=== PATIENT | male | born 1950 | race Caucasian/White ===

== ENCOUNTER 2022-03-09 13:22 | Day surgery (SDC) | payer MEDICARE, OTHER, SELFPAY ==
[2022-03-09] VITALS (28 sets, daily range): BP systolic 108–227; BP diastolic 50–98; PULSE 62–89; RESP 12–98; TEMP 35.8–37.2; O2SAT 86–100; BMI 27.7
--- NOTE | 2022-03-09 15:47 | DI.RAD.S_ITS ---
PROCEDURE: XR HAND RT 2V INDICATIONS: tenosynovitis? TECHNIQUE: 2 views of the hand(s) acquired. COMPARISON: None. FINDINGS: Bones: No fractures or dislocations. Carpal bones are normally aligned. No suspicious bony lesions. Soft tissues: No suspicious soft tissue calcifications. Dorsal soft tissue swelling over metacarpal heads are seen. IMPRESSION: No gross acute right hand fracture or dislocation. Dorsal right hand soft tissue swelling. No bony erosive changes. Dictated by: Mario Peacock M.D. on 03/09/2022 at 16:25 Approved by: Mario Peacock M.D. on 03/09/2022 at 16:25
--- NOTE | 2022-03-09 15:52 | DI.RAD.S_ITS ---
PROCEDURE: XR FOREARM RT 2V INDICATIONS: infection TECHNIQUE: 2 views of the forearm were acquired. COMPARISON: None. FINDINGS: Bones: No fractures or dislocations. No suspicious bony lesions. Soft tissues: Surgical clips are seen in antecubital fossa. No suspicious soft tissue calcifications or masses. IMPRESSION: No forearm fracture or dislocation. No radiographic evidence of osteomyelitis. Dictated by: Maroi Peacock M.D. on 03/09/2022 at 16:25 Approved by: Mario Peacock M.D. on 03/09/2022 at 16:26
--- NOTE | 2022-03-09 16:26 | ED_ITS ---
HPI - Skin/Abscess/Foreign Bdy <Jesenia Quach, [facility] - Last Filed: 03/15/22 14:56> General Chief complaint: Skin/Abscess/Foreign Body Stated complaint: Infection on right hand Time Seen by Provider: 03/09/22 15:45 Source: patient Mode of arrival: Wheelchair History of Present Illness HPI narrative: This is a 72-year-old male dialysis patient with bilateral arm fistulas, states the left arm fistula has not been used in one year, who presents to the emergency department after going to the walk-in clinic this morning for right hand infection after he hit it on something one week ago. He denies fevers but endorses feeling hot and cold and feeling poorly. He is is diabetic, states that he had a pus filled blister on the distal aspect of his 5th digit on his right hand, he endorses being right-handed, states that the blister popped, and the top layer of skin has peeled back, and he has redness, swelling and limited range of motion of his pinky with streaking up his forearm. Patient was seen by Dr. Pierre in the walk-in clinic and was sent over to [facility] for concern of tenosynovitis and IV antibiotics. Patient is a dialysis patient he denies being on any anticoagulants. He denies any chest pain, chest pressure, shortness of breath, or dizziness. He has redness and swelling to the whole 5th digit, with streaking up his arm. Related Data Home Medications Medication Instructions Recorded Confirmed dorzolamide 2 % eye drops 1 drp EYE-BOTH DAILY 03/09/22 03/09/22 ergocalciferol (vitamin D2) 1,250 1 cap PO WEEKLY 03/09/22 03/09/22 mcg (50,000 unit) capsule (Vitamin D2) finasteride 5 mg tablet 1 tab PO DAILY 03/09/22 03/09/22 furosemide 80 mg tablet 2 tab PO DAILY 03/09/22 03/09/22 losartan 100 mg tablet 1 tab PO DAILY 03/09/22 03/09/22 minoxidil 2.5 mg tablet 2 tab PO SEEINSTR 03/09/22 03/09/22 pantoprazole 40 mg tablet,delayed 1 tab PO DAILY 03/09/22 03/09/22 release tamsulosin 0.4 mg capsule 1 cap PO DAILY 03/09/22 03/09/22 timolol maleate 0.5 % eye drops 1 drp EYE-BOTH DAILY 03/09/22 03/09/22 Allergies Allergy/AdvReac Type Severity Reaction Status Date / Time No Known Drug Allergies Allergy Verified 03/09/22 20:39 Review of Systems <GUERDA Ellis - Last Filed: 03/15/22 14:56> Review of Systems Narrative: General: denies fever, chills, endorses fatigue and right hand pain Head/Neck: denies headache, neck pain Eyes: denies visual changes, eye pain Cardio: denies chest pain, palpitations Respiratory: denies shortness of breath, cough GI: denies abdominal pain, nausea, vomiting, or diarrhea : denies dysuria, hematuria or flank pain MSK: denies new joint pain, muscle weakness or swelling Skin: denies rash, itching, endorses wound to the distal aspect of his right 5th digit, redness and swelling over the whole finger, into his hand, and red streaking up his forearm on the ulnar side. 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 General: Awake, alert, afebrile, nontoxic, no cardiorespiratory distress, overweight, when he lays down, his oxygen drops down to 88%, appears fatigued and short of breath with exertion Head/Neck: Atraumatic, neck supple Eyes: EOMI, conjunctiva normal with conjunctival discharge present bilaterally Nose: nares patent, no rhinorrhea Mouth/Throat: moist mucus membranes Cardio: Regular rate and rhythm, no significant dependent edema, warm extremities Respiratory: respirations unlabored without wheezing, stridor, or rales. No retractions, no hypoxia unless he lays down with his mask on, then sats are in upper 80s. GI: Abdomen soft, nontender to palpation x4 quadrants, no guarding or rebound tenderness MSK: Moves all extremities, neurovascularly intact, range of motion without deficit Skin: Normal capillary refill, significant swelling and edema of his right hand 5th digit with an associated wound on the distal 3rd of his finger which is open , draining clear fluid, appears to be a blister that avulsed. Patient states that used to be an abscess and was filled with pus. Patient is not able to extend his finger, mild flexion is possible but no extension, associated lymphangitis up his forearm from this 5th digit Neuro: Normal speech and cognition, normal gait Initial Vital Signs Initial Vital Signs: Vital Signs Temperature 98.4 F 03/09/22 13:22 Pulse Rate 71 03/09/22 13:22 Respiratory Rate 16 03/09/22 13:22 Blood Pressure 161/69 H 03/09/22 13:22 Pulse Oximetry 93 03/09/22 13:22 Oxygen Delivery Method 03/09/22 13:22 <Jodie Zabala MD - Last Filed: 03/19/22 18:10> Initial Vital Signs Initial Vital Signs: Vital Signs Temperature 98.4 F 03/09/22 13:22 Pulse Rate 71 03/09/22 13:22 Respiratory Rate 16 03/09/22 13:22 Blood Pressure 161/69 H 03/09/22 13:22 Pulse Oximetry 93 03/09/22 13:22 Oxygen Delivery Method 03/09/22 13:22 <Bel Pineda DO - Last Filed: 03/14/22 17:42> Initial Vital Signs Initial Vital Signs: Vital Signs Temperature 98.4 F 03/09/22 13:22 Pulse Rate 71 03/09/22 13:22 Respiratory Rate 16 03/09/22 13:22 Blood Pressure 161/69 H 03/09/22 13:22 Pulse Oximetry 93 03/09/22 13:22 Oxygen Delivery Method 03/09/22 13:22 <Heidi Jennings DO - Last Filed: 03/14/22 13:18> Initial Vital Signs Initial Vital Signs: Vital Signs Temperature 98.4 F 03/09/22 13:22 Pulse Rate 71 03/09/22 13:22 Respiratory Rate 16 03/09/22 13:22 Blood Pressure 161/69 H 03/09/22 13:22 Pulse Oximetry 93 03/09/22 13:22 Oxygen Delivery Method 03/09/22 13:22 <Aristeo Scales DO - Last Filed: 03/13/22 06:29> Initial Vital Signs Initial Vital Signs: Vital Signs Temperature 98.4 F 03/09/22 13:22 Pulse Rate 71 03/09/22 13:22 Respiratory Rate 16 03/09/22 13:22 Blood Pressure 161/69 H 03/09/22 13:22 Pulse Oximetry 93 03/09/22 13:22 Oxygen Delivery Method 03/09/22 13:22 Course <GUERDA Ellis - Last Filed: 03/15/22 14:56> Orders Ordered: Discontinued Medications Acetaminophen (Acetaminophen 325 Mg Tablet) 650 mg PO NOW ONE Stop: 03/09/22 18:32 Last Admin: 03/09/22 19:09 Dose: 650 mg Documented By: GUDELIA Hydrocodone Bitart/Acetaminophen (Hydrocodone/Acet 5/325 Tablet) 1 tab PO NOW ONE Stop: 03/09/22 18:32 Last Admin: 03/09/22 19:09 Dose: 1 tab Documented By: GUDELIA Bupivacaine HCl (Bupivacaine 0.5% (Pf) Vial) 30 ml INJ NOW ONE Stop: 03/09/22 21:43 Last Admin: 03/09/22 21:42 Dose: 7 ml Documented By: MITUL Bupivacaine HCl (Bupivacaine 0.5% (Pf) Vial) 30 ml INJ INTRA-OP ONE Stop: 03/12/22 12:37 Last Admin: 03/12/22 12:37 Dose: 7 ml Documented By: MITUL Sodium Chloride 1,000 ml/ (Gentamicin Sulfate 80 mg) 0 ml IRR NOW ONE Stop: 03/09/22 21:43 Last Admin: 03/09/22 21:43 Dose: 1,002 ml Documented By: MITUL Sodium Chloride 1,000 ml/ (Gentamicin Sulfate 80 mg) 0 ml IRR NOW ONE Stop: 03/12/22 12:38 Last Admin: 03/12/22 12:38 Dose: 1,002 ml Documented By: MITUL Diphtheria/Tetanus/Acell Pertussis (Tet,Diph,Pertuss(Acell),Vac/Pf 0.5 Ml Syringe) 0.5 ml IM .ONCE ONE Stop: 03/09/22 16:30 Last Admin: 03/09/22 16:38 Dose: 0.5 ml Documented By: LYN Dorzolamide HCl (Dorzolamide 2% Ophth 10 Ml) 1 drops EYE-BOTH DAILY [facility] Last Admin: 03/14/22 08:45 Dose: 1 drops Documented By: Admin: 03/13/22 09:20 Dose: 1 drops Documented By: Admin: 03/12/22 09:33 Dose: 1 drops Documented By: Admin: 03/11/22 19:00 Dose: 1 drops Documented By: ANU Doxycycline Hyclate (Doxycycline Hyclate 100 Mg Tablet) 100 mg PO NOW ONE Stop: 03/09/22 16:30 Last Admin: 03/09/22 16:38 Dose: 100 mg Documented By: LYN Ergocalciferol (Ergocalciferol (Vitamin D2) 50,000 Unit Capsule) 50,000 unit PO Fr@0900 [facility] Fentanyl (Fentanyl 100 Mcg/2 Ml Inj) 0 mcg IV Q5M PRN PRN Reason: Pain, Moderate (4-6) Finasteride (Finasteride 5 Mg Tablet) 5 mg PO NOW ONE Stop: 03/11/22 10:56 Last Admin: 03/11/22 11:42 Dose: 5 mg Documented By: ANU Finasteride (Finasteride 5 Mg Tablet) 5 mg PO DAILY [facility] Last Admin: 03/14/22 08:46 Dose: 5 mg Documented By: Admin: 03/13/22 09:22 Dose: 5 mg Documented By: Admin: 03/12/22 09:32 Dose: 5 mg Documented By: Admin: 03/11/22 14:22 Dose: Not Given Documented By: ANU Furosemide (Furosemide 40 Mg/4 Ml Vial) 40 mg IV NOW ONE Stop: 03/10/22 09:33 Last Admin: 03/10/22 09:47 Dose: 40 mg Documented By: BENNY Furosemide (Furosemide 100 Mg/10 Ml Vial) 60 mg IV NOW ONE Stop: 03/11/22 09:56 Last Admin: 03/11/22 09:59 Dose: 60 mg Documented By: DEYANIRA Furosemide (Furosemide 40 Mg Tablet) 160 mg PO DAILY [facility] Last Admin: 03/11/22 14:44 Dose: Not Given Documented By: CHELLE(2) Furosemide (Furosemide 40 Mg Tablet) 160 mg PO 1900 [facility] Last Admin: 03/13/22 22:00 Dose: 160 mg Documented By: Admin: 03/12/22 20:14 Dose: 160 mg Documented By: Admin: 03/11/22 19:04 Dose: 160 mg Documented By: ANU Hydralazine HCl (Hydralazine 20 Mg/Ml Vial) 10 mg IV NOW ONE Stop: 03/09/22 18:27 Last Admin: 03/09/22 19:07 Dose: 10 mg Documented By: GUDELIA Ceftriaxone Sodium 1,000 mg/ (Sodium Chloride) 100 mls @ 200 mls/hr IV NOW ONE Stop: 03/09/22 17:00 Last Infusion: 03/09/22 18:26 Dose: 0 mls/hr Documented By: Admin: 03/09/22 17:38 Dose: 200 mls/hr Documented By: GUDELIA Metronidazole (Flagyl) 500 mg in 100 mls @ 100 mls/hr IV NOW ONE Stop: 03/09/22 17:58 Last Infusion: 03/09/22 19:35 Dose: 0 mls/hr Documented By: Admin: 03/09/22 18:24 Dose: 100 mls/hr Documented By: GUDELIA Vancomycin HCl/Dextrose (Vancomycin) 2,000 mg in 400 mls @ 200 mls/hr IV NOW ONE Stop: 03/09/22 23:14 Last Infusion: 03/10/22 00:08 Dose: 0 mls/hr Documented By: Admin: 03/09/22 21:45 Dose: 200 mls/hr Documented By: CHRYSTAL Lactated Ringer's (Lactated Ringers) 1,000 mls @ 42 mls/hr IV NOW ONE Stop: 03/10/22 20:18 Last Infusion: 03/09/22 23:50 Dose: 0 mls/hr Documented By: Admin: 03/09/22 23:49 Dose: 42 mls/hr Documented By: MAGUE Ceftriaxone Sodium 2,000 mg/ (Sodium Chloride) 100 mls @ 200 mls/hr IV DAILY [facility] Last Infusion: 03/14/22 09:53 Dose: 0 mls/hr Documented By: Infusion: 03/14/22 09:21 Dose: 200 mls/hr Documented By: Infusion: 03/14/22 09:18 Dose: 0 mls/hr Documented By: Admin: 03/14/22 09:00 Dose: 200 mls/hr Documented By: Infusion: 03/13/22 09:58 Dose: 0 mls/hr Documented By: Admin: 03/13/22 09:21 Dose: 200 mls/hr Documented By: Infusion: 03/12/22 11:11 Dose: 0 mls/hr Documented By: Admin: 03/12/22 10:38 Dose: 200 mls/hr Documented By: Infusion: 03/11/22 11:18 Dose: 0 mls/hr Documented By: Admin: 03/11/22 09:56 Dose: 200 mls/hr Documented By: Infusion: 03/10/22 12:19 Dose: 0 mls/hr Documented By: Admin: 03/10/22 10:55 Dose: 200 mls/hr Documented By: BENNY Metronidazole (Flagyl) 500 mg in 100 mls @ 100 mls/hr IV Q8H [facility] Last Infusion: 03/10/22 10:38 Dose: 0 mls/hr Documented By: Admin: 03/10/22 09:39 Dose: 100 mls/hr Documented By: BENNY Metronidazole (Flagyl) 500 mg in 100 mls @ 100 mls/hr IV Q8H [facility] Last Infusion: 03/11/22 03:30 Dose: 0 mls/hr Documented By: Admin: 03/11/22 02:28 Dose: 100 mls/hr Documented By: Infusion: 03/10/22 20:38 Dose: 0 mls/hr Documented By: Admin: 03/10/22 19:34 Dose: 100 mls/hr Documented By: ELAN Vancomycin HCl/Dextrose (Vancomycin) 2,000 mg in 400 mls @ 200 mls/hr IV NOW ONE Stop: 03/12/22 08:59 Last Infusion: 03/12/22 10:38 Dose: 0 mls/hr Documented By: Admin: 03/12/22 08:13 Dose: 200 mls/hr Documented By: CHELLE Sodium Chloride (Normal Saline 0.9%) 500 mls @ 21 mls/hr IV CONT [facility] Last Admin: 03/13/22 10:00 Dose: Not Given Documented By: CHELLE Sodium Chloride (Normal Saline 0.9%) 1,000 mls @ 21 mls/hr IV CONT [facility] Last Infusion: 03/12/22 13:26 Dose: 0 mls/hr Documented By: Admin: 03/12/22 11:55 Dose: 21 mls/hr Documented By: YAZAN Losartan Potassium (Losartan 50 Mg Tablet) 100 mg PO DAILY [facility] Last Admin: 03/14/22 08:46 Dose: 100 mg Documented By: Admin: 03/13/22 09:21 Dose: 100 mg Documented By: Admin: 03/12/22 09:31 Dose: 100 mg Documented By: Admin: 03/11/22 10:37 Dose: 100 mg Documented By: DEYANIRA Minoxidil (Minoxidil 2.5 Mg Tablet) 5 mg PO NOW ONE Stop: 03/11/22 10:57 Last Admin: 03/11/22 11:42 Dose: 5 mg Documented By: ANU Minoxidil (Minoxidil 2.5 Mg Tablet) 5 mg PO SEEINSTR [facility] Last Admin: 03/12/22 09:33 Dose: 5 mg Documented By: ERNST Oxycodone HCl (Oxycodone Ir 5 Mg Tablet) 5 mg PO NOW ONE Stop: 03/11/22 13:38 Last Admin: 03/11/22 14:23 Dose: Not Given Documented By: ANU Oxycodone/Acetaminophen (Oxycodone/Acetaminophen 5/325 Tablet) 1 tab PO PACUNOW PRN PRN Reason: Mild or Moderate Pain Pantoprazole Sodium (Pantoprazole Dr 40 Mg Tablet) 40 mg PO DAILY [facility] Last Admin: 03/14/22 08:46 Dose: 40 mg Documented By: Admin: 03/13/22 09:21 Dose: 40 mg Documented By: Admin: 03/12/22 09:31 Dose: 40 mg Documented By: Admin: 03/11/22 14:22 Dose: Not Given Documented By: ANU Tamsulosin HCl (Tamsulosin 0.4 Mg Capsule) 0.4 mg PO DAILY [facility] Last Admin: 03/14/22 08:46 Dose: 0.4 mg Documented By: Admin: 03/13/22 09:21 Dose: 0.4 mg Documented By: Admin: 03/12/22 09:31 Dose: 0.4 mg Documented By: Admin: 03/11/22 09:59 Dose: 0.4 mg Documented By: DEYANIRA Tamsulosin HCl (Tamsulosin 0.4 Mg Capsule) 0.4 mg PO DAILY [facility] Last Admin: 03/11/22 14:44 Dose: Not Given Documented By: CHELLE(2) Timolol Maleate (Timolol 0.5% Ophth) 1 drops EYE-BOTH DAILY [facility] Last Admin: 03/11/22 14:44 Dose: Not Given Documented By: CHELLE(2) Timolol Maleate (Timolol 0.5% Ophth) 1 drops EYE-BOTH DAILY [facility] Last Admin: 03/14/22 08:45 Dose: 1 drop Documented By: Admin: 03/13/22 09:20 Dose: 1 drop Documented By: Admin: 03/12/22 09:30 Dose: 1 drop Documented By: Admin: 03/11/22 19:04 Dose: 1 drop Documented By: ANU Vancomycin HCl (Vancomycin Per Pharmacy) 1 request MIS NOW ONE Stop: 03/09/22 19:13 Last Admin: 03/09/22 23:50 Dose: Not Given Documented By: AMANDA Vancomycin HCl (Vancomycin Per Pharmacy) 1 request MISC NOW ONE Stop: 03/09/22 21:16 Last Admin: 03/09/22 23:51 Dose: Not Given Documented By: AMANDA Vancomycin HCl (Vancomycin Per Pharmacy) 1 request MISC NOW NR Stop: 03/10/22 21:44 Vancomycin HCl (Vancomycin Per Pharmacy) 1 request MISC NOW NR Stop: 03/10/22 22:14 Vital Signs Vital signs: Vital Signs - 8 hr 03/14/22 10:30 03/14/22 09:56 03/14/22 09:57 Temperature 98.3 F Pulse Rate 72 Respiratory Rate 20 Blood Pressure 145/63 H Blood Pressure [Left Wrist] 145/63 H Pulse Oximetry 97 96 Oxygen Delivery Method Nasal Cannula Nasal Cannula Oxygen Flow Rate 2 2 03/14/22 09:57 03/14/22 13:08 03/14/22 15:48 Temperature Pulse Rate 72 83 71 Respiratory Rate 18 20 Blood Pressure 169/76 H 165/72 H Blood Pressure [Left Wrist] Pulse Oximetry 96 93 95 Oxygen Delivery Method Nasal Cannula Nasal Cannula Nasal Cannula Oxygen Flow Rate 2 2 2 <Jodie Zabala MD - Last Filed: 03/19/22 18:10> Orders Ordered: Discontinued Medications Acetaminophen (Acetaminophen 325 Mg Tablet) 650 mg PO NOW ONE Stop: 03/09/22 18:32 Last Admin: 03/09/22 19:09 Dose: 650 mg Documented By: GUDELIA Hydrocodone Bitart/Acetaminophen (Hydrocodone/Acet 5/325 Tablet) 1 tab PO NOW ONE Stop: 03/09/22 18:32 Last Admin: 03/09/22 19:09 Dose: 1 tab Documented By: GUDELIA Bupivacaine HCl (Bupivacaine 0.5% (Pf) Vial) 30 ml INJ NOW ONE Stop: 03/09/22 21:43 Last Admin: 03/09/22 21:42 Dose: 7 ml Documented By: MITUL Bupivacaine HCl (Bupivacaine 0.5% (Pf) Vial) 30 ml INJ INTRA-OP ONE Stop: 03/12/22 12:37 Last Admin: 03/12/22 12:37 Dose: 7 ml Documented By: MITUL Sodium Chloride 1,000 ml/ (Gentamicin Sulfate 80 mg) 0 ml IRR NOW ONE Stop: 03/09/22 21:43 Last Admin: 03/09/22 21:43 Dose: 1,002 ml Documented By: MITUL Sodium Chloride 1,000 ml/ (Gentamicin Sulfate 80 mg) 0 ml IRR NOW ONE Stop: 03/12/22 12:38 Last Admin: 03/12/22 12:38 Dose: 1,002 ml Documented By: MITUL Diphtheria/Tetanus/Acell Pertussis (Tet,Diph,Pertuss(Acell),Vac/Pf 0.5 Ml Syringe) 0.5 ml IM .ONCE ONE Stop: 03/09/22 16:30 Last Admin: 03/09/22 16:38 Dose: 0.5 ml Documented By: LYN Dorzolamide HCl (Dorzolamide 2% Ophth 10 Ml) 1 drops EYE-BOTH DAILY [facility] Last Admin: 03/14/22 08:45 Dose: 1 drops Documented By: Admin: 03/13/22 09:20 Dose: 1 drops Documented By: Admin: 03/12/22 09:33 Dose: 1 drops Documented By: Admin: 03/11/22 19:00 Dose: 1 drops Documented By: ANU Doxycycline Hyclate (Doxycycline Hyclate 100 Mg Tablet) 100 mg PO NOW ONE Stop: 03/09/22 16:30 Last Admin: 03/09/22 16:38 Dose: 100 mg Documented By: LYN Ergocalciferol (Ergocalciferol (Vitamin D2) 50,000 Unit Capsule) 50,000 unit PO Fr@0900 [facility] Fentanyl (Fentanyl 100 Mcg/2 Ml Inj) 0 mcg IV Q5M PRN PRN Reason: Pain, Moderate (4-6) Finasteride (Finasteride 5 Mg Tablet) 5 mg PO NOW ONE Stop: 03/11/22 10:56 Last Admin: 03/11/22 11:42 Dose: 5 mg Documented By: ANU Finasteride (Finasteride 5 Mg Tablet) 5 mg PO DAILY [facility] Last Admin: 03/14/22 08:46 Dose: 5 mg Documented By: Admin: 03/13/22 09:22 Dose: 5 mg Documented By: Admin: 03/12/22 09:32 Dose: 5 mg Documented By: Admin: 03/11/22 14:22 Dose: Not Given Documented By: ANU Furosemide (Furosemide 40 Mg/4 Ml Vial) 40 mg IV NOW ONE Stop: 03/10/22 09:33 Last Admin: 03/10/22 09:47 Dose: 40 mg Documented By: BENNY Furosemide (Furosemide 100 Mg/10 Ml Vial) 60 mg IV NOW ONE Stop: 03/11/22 09:56 Last Admin: 03/11/22 09:59 Dose: 60 mg Documented By: DEYANIRA Furosemide (Furosemide 40 Mg Tablet) 160 mg PO DAILY [facility] Last Admin: 03/11/22 14:44 Dose: Not Given Documented By: CHELLE(2) Furosemide (Furosemide 40 Mg Tablet) 160 mg PO 1900 [facility] Last Admin: 03/13/22 22:00 Dose: 160 mg Documented By: Admin: 03/12/22 20:14 Dose: 160 mg Documented By: Admin: 03/11/22 19:04 Dose: 160 mg Documented By: ANU Hydralazine HCl (Hydralazine 20 Mg/Ml Vial) 10 mg IV NOW ONE Stop: 03/09/22 18:27 Last Admin: 03/09/22 19:07 Dose: 10 mg Documented By: GUDELIA Ceftriaxone Sodium 1,000 mg/ (Sodium Chloride) 100 mls @ 200 mls/hr IV NOW ONE Stop: 03/09/22 17:00 Last Infusion: 03/09/22 18:26 Dose: 0 mls/hr Documented By: Admin: 03/09/22 17:38 Dose: 200 mls/hr Documented By: GUDELIA Metronidazole (Flagyl) 500 mg in 100 mls @ 100 mls/hr IV NOW ONE Stop: 03/09/22 17:58 Last Infusion: 03/09/22 19:35 Dose: 0 mls/hr Documented By: Admin: 03/09/22 18:24 Dose: 100 mls/hr Documented By: GUDELIA Vancomycin HCl/Dextrose (Vancomycin) 2,000 mg in 400 mls @ 200 mls/hr IV NOW ONE Stop: 03/09/22 23:14 Last Infusion: 03/10/22 00:08 Dose: 0 mls/hr Documented By: Admin: 03/09/22 21:45 Dose: 200 mls/hr Documented By: CHRYSTAL Lactated Ringer's (Lactated Ringers) 1,000 mls @ 42 mls/hr IV NOW ONE Stop: 03/10/22 20:18 Last Infusion: 03/09/22 23:50 Dose: 0 mls/hr Documented By: Admin: 03/09/22 23:49 Dose: 42 mls/hr Documented By: MAGUE Ceftriaxone Sodium 2,000 mg/ (Sodium Chloride) 100 mls @ 200 mls/hr IV DAILY [facility] Last Infusion: 03/14/22 09:53 Dose: 0 mls/hr Documented By: Infusion: 03/14/22 09:21 Dose: 200 mls/hr Documented By: Infusion: 03/14/22 09:18 Dose: 0 mls/hr Documented By: AMEd Admin: 03/14/22 09:00 Dose: 200 mls/hr Documented By: AMEd Infusion: 03/13/22 09:58 Dose: 0 mls/hr Documented By: Admin: 03/13/22 09:21 Dose: 200 mls/hr Documented By: Infusion: 03/12/22 11:11 Dose: 0 mls/hr Documented By: Admin: 03/12/22 10:38 Dose: 200 mls/hr Documented By: Infusion: 03/11/22 11:18 Dose: 0 mls/hr Documented By: Admin: 03/11/22 09:56 Dose: 200 mls/hr Documented By: Infusion: 03/10/22 12:19 Dose: 0 mls/hr Documented By: Admin: 03/10/22 10:55 Dose: 200 mls/hr Documented By: BENNY Metronidazole (Flagyl) 500 mg in 100 mls @ 100 mls/hr IV Q8H [facility] Last Infusion: 03/10/22 10:38 Dose: 0 mls/hr Documented By: Admin: 03/10/22 09:39 Dose: 100 mls/hr Documented By: BENNY Metronidazole (Flagyl) 500 mg in 100 mls @ 100 mls/hr IV Q8H [facility] Last Infusion: 03/11/22 03:30 Dose: 0 mls/hr Documented By: Admin: 03/11/22 02:28 Dose: 100 mls/hr Documented By: Infusion: 03/10/22 20:38 Dose: 0 mls/hr Documented By: Admin: 03/10/22 19:34 Dose: 100 mls/hr Documented By: ELAN Vancomycin HCl/Dextrose (Vancomycin) 2,000 mg in 400 mls @ 200 mls/hr IV NOW ONE Stop: 03/12/22 08:59 Last Infusion: 03/12/22 10:38 Dose: 0 mls/hr Documented By: Admin: 03/12/22 08:13 Dose: 200 mls/hr Documented By: CHELLE Sodium Chloride (Normal Saline 0.9%) 500 mls @ 21 mls/hr IV CONT [facility] Last Admin: 03/13/22 10:00 Dose: Not Given Documented By: CHELLE Sodium Chloride (Normal Saline 0.9%) 1,000 mls @ 21 mls/hr IV CONT [facility] Last Infusion: 03/12/22 13:26 Dose: 0 mls/hr Documented By: Admin: 03/12/22 11:55 Dose: 21 mls/hr Documented By: YAZAN Losartan Potassium (Losartan 50 Mg Tablet) 100 mg PO DAILY [facility] Last Admin: 03/14/22 08:46 Dose: 100 mg Documented By: Admin: 03/13/22 09:21 Dose: 100 mg Documented By: Admin: 03/12/22 09:31 Dose: 100 mg Documented By: Admin: 03/11/22 10:37 Dose: 100 mg Documented By: DEYANIRA Minoxidil (Minoxidil 2.5 Mg Tablet) 5 mg PO NOW ONE Stop: 03/11/22 10:57 Last Admin: 03/11/22 11:42 Dose: 5 mg Documented By: ANU Minoxidil (Minoxidil 2.5 Mg Tablet) 5 mg PO SEEINSTR [facility] Last Admin: 03/12/22 09:33 Dose: 5 mg Documented By: ERNST Oxycodone HCl (Oxycodone Ir 5 Mg Tablet) 5 mg PO NOW ONE Stop: 03/11/22 13:38 Last Admin: 03/11/22 14:23 Dose: Not Given Documented By: ANU Oxycodone/Acetaminophen (Oxycodone/Acetaminophen 5/325 Tablet) 1 tab PO PACUNOW PRN PRN Reason: Mild or Moderate Pain Pantoprazole Sodium (Pantoprazole Dr 40 Mg Tablet) 40 mg PO DAILY [facility] Last Admin: 03/14/22 08:46 Dose: 40 mg Documented By: Admin: 03/13/22 09:21 Dose: 40 mg Documented By: Admin: 03/12/22 09:31 Dose: 40 mg Documented By: Admin: 03/11/22 14:22 Dose: Not Given Documented By: ANU Tamsulosin HCl (Tamsulosin 0.4 Mg Capsule) 0.4 mg PO DAILY [facility] Last Admin: 03/14/22 08:46 Dose: 0.4 mg Documented By: Admin: 03/13/22 09:21 Dose: 0.4 mg Documented By: Admin: 03/12/22 09:31 Dose: 0.4 mg Documented By: Admin: 03/11/22 09:59 Dose: 0.4 mg Documented By: DEYANIRA Tamsulosin HCl (Tamsulosin 0.4 Mg Capsule) 0.4 mg PO DAILY [facility] Last Admin: 03/11/22 14:44 Dose: Not Given Documented By: CHELLE(2) Timolol Maleate (Timolol 0.5% [facility]) 1 drops EYE-BOTH DAILY [facility] Last Admin: 03/11/22 14:44 Dose: Not Given Documented By: CHELLE(2) Timolol Maleate (Timolol 0.5% [facility]) 1 drops EYE-BOTH DAILY [facility] Last Admin: 03/14/22 08:45 Dose: 1 drop Documented By: Admin: 03/13/22 09:20 Dose: 1 drop Documented By: Admin: 03/12/22 09:30 Dose: 1 drop Documented By: Admin: 03/11/22 19:04 Dose: 1 drop Documented By: ANU Vancomycin HCl (Vancomycin Per Pharmacy) 1 request MISC NOW ONE Stop: 03/09/22 19:13 Last Admin: 03/09/22 23:50 Dose: Not Given Documented By: AMANDA Vancomycin HCl (Vancomycin Per Pharmacy) 1 request MISC NOW ONE Stop: 03/09/22 21:16 Last Admin: 03/09/22 23:51 Dose: Not Given Documented By: AMANDA Vancomycin HCl (Vancomycin Per Pharmacy) 1 request MISC NOW NR Stop: 03/10/22 21:44 Vancomycin HCl (Vancomycin Per Pharmacy) 1 request MISC NOW NR Stop: 03/10/22 22:14 Reevaluation(s) Reevaluation #1: Patient is return from operating room: Patient: Norris Baumann Jr MR#: [id number] : 1950 ? Date of service 03/09/22 Provider:?Kristina Harris MD Operative Date/Time/Diagnoses Date of procedure: 03/09/22 Time of procedure: 20:45 Pre-op diagnosis: Right hand infection Post-op diagnosis: same Procedure & Clinicians Procedure: Irrigation and excisional debridement of her right hand removing some skin and subcutaneous tissues with opening on the right small finger dorsum volar and right palm index and middle finger volar surface, irrigation and debridement 5th finger flexor tendon sheath Same procedure as scheduled: Yes Indications: This is a 72-year-old gentleman with a severe right hand infection is brought to the operating room for as severe right hand diabetic infection pretty dominantly being in the small finger Surgeon: Kristina Harris Anesthesia Type: General Operative Notes Findings: Purulent material on the dorsum of the hand, slight necrotic tissue, intact extensor tendon, open fracture into the distal phalanx with purulent material, purulent material in the 5th finger flexor tendon sheath, superficial infection at the base of the index and middle finger no deep pus.? Slightly in purplish discoloration of the 5th finger but some capillary refill. Closure Type: not applicable Specimen(s): other (Multiple cultures) Estimated Blood Loss (mL): 50 Patient is subtle then, pain is controlled, vancomycin is infusing. He has previously received ceftriaxone and Flagyl Will continue postop care and antibiotic treatment over the course of the evening. He will need transfer to facility for continued IV Care, Orthopedic consultation and inpatient dialysis Vital Signs Vital signs: Vital Signs - 8 hr 03/14/22 10:30 03/14/22 09:56 03/14/22 09:57 Temperature 98.3 F Pulse Rate 72 Respiratory Rate 20 Blood Pressure 145/63 H Blood Pressure [Left Wrist] 145/63 H Pulse Oximetry 97 96 Oxygen Delivery Method Nasal Cannula Nasal Cannula Oxygen Flow Rate 2 2 03/14/22 09:57 03/14/22 13:08 03/14/22 15:48 Temperature Pulse Rate 72 83 71 Respiratory Rate 18 20 Blood Pressure 169/76 H 165/72 H Blood Pressure [Left Wrist] Pulse Oximetry 96 93 95 Oxygen Delivery Method Nasal Cannula Nasal Cannula Nasal Cannula Oxygen Flow Rate 2 2 2 <Bel Pineda, DO - Last Filed: 03/14/22 17:42> Orders Ordered: Discontinued Medications Acetaminophen (Acetaminophen 325 Mg Tablet) 650 mg PO NOW ONE Stop: 03/09/22 18:32 Last Admin: 03/09/22 19:09 Dose: 650 mg Documented By: GUDELIA Hydrocodone Bitart/Acetaminophen (Hydrocodone/Acet 5/325 Tablet) 1 tab PO NOW ONE Stop: 03/09/22 18:32 Last Admin: 03/09/22 19:09 Dose: 1 tab Documented By: GUDELIA Bupivacaine HCl (Bupivacaine 0.5% (Pf) Vial) 30 ml INJ NOW ONE Stop: 03/09/22 21:43 Last Admin: 03/09/22 21:42 Dose: 7 ml Documented By: MITUL Bupivacaine HCl (Bupivacaine 0.5% (Pf) Vial) 30 ml INJ INTRA-OP ONE Stop: 03/12/22 12:37 Last Admin: 03/12/22 12:37 Dose: 7 ml Documented By: MITUL Sodium Chloride 1,000 ml/ (Gentamicin Sulfate 80 mg) 0 ml IRR NOW ONE Stop: 03/09/22 21:43 Last Admin: 03/09/22 21:43 Dose: 1,002 ml Documented By: MITUL Sodium Chloride 1,000 ml/ (Gentamicin Sulfate 80 mg) 0 ml IRR NOW ONE Stop: 03/12/22 12:38 Last Admin: 03/12/22 12:38 Dose: 1,002 ml Documented By: MITUL Diphtheria/Tetanus/Acell Pertussis (Tet,Diph,Pertuss(Acell),Vac/Pf 0.5 Ml Syringe) 0.5 ml IM .ONCE ONE Stop: 03/09/22 16:30 Last Admin: 03/09/22 16:38 Dose: 0.5 ml Documented By: LYN Dorzolamide HCl (Dorzolamide 2% Ophth 10 Ml) 1 drops EYE-BOTH DAILY [facility] Last Admin: 03/14/22 08:45 Dose: 1 drops Documented By: Admin: 03/13/22 09:20 Dose: 1 drops Documented By: Admin: 03/12/22 09:33 Dose: 1 drops Documented By: Admin: 03/11/22 19:00 Dose: 1 drops Documented By: ANU Doxycycline Hyclate (Doxycycline Hyclate 100 Mg Tablet) 100 mg PO NOW ONE Stop: 03/09/22 16:30 Last Admin: 03/09/22 16:38 Dose: 100 mg Documented By: LYN Ergocalciferol (Ergocalciferol (Vitamin D2) 50,000 Unit Capsule) 50,000 unit PO Fr@0900 [facility] Fentanyl (Fentanyl 100 Mcg/2 Ml Inj) 0 mcg IV Q5M PRN PRN Reason: Pain, Moderate (4-6) Finasteride (Finasteride 5 Mg Tablet) 5 mg PO NOW ONE Stop: 03/11/22 10:56 Last Admin: 03/11/22 11:42 Dose: 5 mg Documented By: ANU Finasteride (Finasteride 5 Mg Tablet) 5 mg PO DAILY [facility] Last Admin: 03/14/22 08:46 Dose: 5 mg Documented By: Admin: 03/13/22 09:22 Dose: 5 mg Documented By: Admin: 03/12/22 09:32 Dose: 5 mg Documented By: Admin: 03/11/22 14:22 Dose: Not Given Documented By: ANU Furosemide (Furosemide 40 Mg/4 Ml Vial) 40 mg IV NOW ONE Stop: 03/10/22 09:33 Last Admin: 03/10/22 09:47 Dose: 40 mg Documented By: BENNY Furosemide (Furosemide 100 Mg/10 Ml Vial) 60 mg IV NOW ONE Stop: 03/11/22 09:56 Last Admin: 03/11/22 09:59 Dose: 60 mg Documented By: DEYANIRA Furosemide (Furosemide 40 Mg Tablet) 160 mg PO DAILY [facility] Last Admin: 03/11/22 14:44 Dose: Not Given Documented By: CHELLE(2) Furosemide (Furosemide 40 Mg Tablet) 160 mg PO 1900 [facility] Last Admin: 03/13/22 22:00 Dose: 160 mg Documented By: Admin: 03/12/22 20:14 Dose: 160 mg Documented By: Admin: 03/11/22 19:04 Dose: 160 mg Documented By: ANU Hydralazine HCl (Hydralazine 20 Mg/Ml Vial) 10 mg IV NOW ONE Stop: 03/09/22 18:27 Last Admin: 03/09/22 19:07 Dose: 10 mg Documented By: GUDELIA Ceftriaxone Sodium 1,000 mg/ (Sodium Chloride) 100 mls @ 200 mls/hr IV NOW ONE Stop: 03/09/22 17:00 Last Infusion: 03/09/22 18:26 Dose: 0 mls/hr Documented By: Admin: 03/09/22 17:38 Dose: 200 mls/hr Documented By: GUDELIA Metronidazole (Flagyl) 500 mg in 100 mls @ 100 mls/hr IV NOW ONE Stop: 03/09/22 17:58 Last Infusion: 03/09/22 19:35 Dose: 0 mls/hr Documented By: Admin: 03/09/22 18:24 Dose: 100 mls/hr Documented By: GUDELIA Vancomycin HCl/Dextrose (Vancomycin) 2,000 mg in 400 mls @ 200 mls/hr IV NOW ONE Stop: 03/09/22 23:14 Last Infusion: 03/10/22 00:08 Dose: 0 mls/hr Documented By: Admin: 03/09/22 21:45 Dose: 200 mls/hr Documented By: CHRYSTAL Lactated Ringer's (Lactated Ringers) 1,000 mls @ 42 mls/hr IV NOW ONE Stop: 03/10/22 20:18 Last Infusion: 03/09/22 23:50 Dose: 0 mls/hr Documented By: Admin: 03/09/22 23:49 Dose: 42 mls/hr Documented By: IF Ceftriaxone Sodium 2,000 mg/ (Sodium Chloride) 100 mls @ 200 mls/hr IV DAILY [facility] Last Infusion: 03/14/22 09:53 Dose: 0 mls/hr Documented By: Infusion: 03/14/22 09:21 Dose: 200 mls/hr Documented By: Infusion: 03/14/22 09:18 Dose: 0 mls/hr Documented By: Admin: 03/14/22 09:00 Dose: 200 mls/hr Documented By: AMEd Infusion: 03/13/22 09:58 Dose: 0 mls/hr Documented By: Admin: 03/13/22 09:21 Dose: 200 mls/hr Documented By: Infusion: 03/12/22 11:11 Dose: 0 mls/hr Documented By: Admin: 03/12/22 10:38 Dose: 200 mls/hr Documented By: Infusion: 03/11/22 11:18 Dose: 0 mls/hr Documented By: Admin: 03/11/22 09:56 Dose: 200 mls/hr Documented By: Infusion: 03/10/22 12:19 Dose: 0 mls/hr Documented By: Admin: 03/10/22 10:55 Dose: 200 mls/hr Documented By: BENNY Metronidazole (Flagyl) 500 mg in 100 mls @ 100 mls/hr IV Q8H [facility] Last Infusion: 03/10/22 10:38 Dose: 0 mls/hr Documented By: Admin: 03/10/22 09:39 Dose: 100 mls/hr Documented By: BENNY Metronidazole (Flagyl) 500 mg in 100 mls @ 100 mls/hr IV Q8H [facility] Last Infusion: 03/11/22 03:30 Dose: 0 mls/hr Documented By: Admin: 03/11/22 02:28 Dose: 100 mls/hr Documented By: Infusion: 03/10/22 20:38 Dose: 0 mls/hr Documented By: Admin: 03/10/22 19:34 Dose: 100 mls/hr Documented By: ELAN Vancomycin HCl/Dextrose (Vancomycin) 2,000 mg in 400 mls @ 200 mls/hr IV NOW ONE Stop: 03/12/22 08:59 Last Infusion: 03/12/22 10:38 Dose: 0 mls/hr Documented By: Admin: 03/12/22 08:13 Dose: 200 mls/hr Documented By: CHELLE Sodium Chloride (Normal Saline 0.9%) 500 mls @ 21 mls/hr IV CONT [facility] Last Admin: 03/13/22 10:00 Dose: Not Given Documented By: CHELLE Sodium Chloride (Normal Saline 0.9%) 1,000 mls @ 21 mls/hr IV CONT [facility] Last Infusion: 03/12/22 13:26 Dose: 0 mls/hr Documented By: Admin: 03/12/22 11:55 Dose: 21 mls/hr Documented By: YAZAN Losartan Potassium (Losartan 50 Mg Tablet) 100 mg PO DAILY [facility] Last Admin: 03/14/22 08:46 Dose: 100 mg Documented By: Admin: 03/13/22 09:21 Dose: 100 mg Documented By: Admin: 03/12/22 09:31 Dose: 100 mg Documented By: Admin: 03/11/22 10:37 Dose: 100 mg Documented By: DEYANIRA Minoxidil (Minoxidil 2.5 Mg Tablet) 5 mg PO NOW ONE Stop: 03/11/22 10:57 Last Admin: 03/11/22 11:42 Dose: 5 mg Documented By: ANU Minoxidil (Minoxidil 2.5 Mg Tablet) 5 mg PO SEEINSTR [facility] Last Admin: 03/12/22 09:33 Dose: 5 mg Documented By: ERNST Oxycodone HCl (Oxycodone Ir 5 Mg Tablet) 5 mg PO NOW ONE Stop: 03/11/22 13:38 Last Admin: 03/11/22 14:23 Dose: Not Given Documented By: ANU Oxycodone/Acetaminophen (Oxycodone/Acetaminophen 5/325 Tablet) 1 tab PO PACUNOW PRN PRN Reason: Mild or Moderate Pain Pantoprazole Sodium (Pantoprazole Dr 40 Mg Tablet) 40 mg PO DAILY [facility] Last Admin: 03/14/22 08:46 Dose: 40 mg Documented By: Admin: 03/13/22 09:21 Dose: 40 mg Documented By: Admin: 03/12/22 09:31 Dose: 40 mg Documented By: Admin: 03/11/22 14:22 Dose: Not Given Documented By: ANU Tamsulosin HCl (Tamsulosin 0.4 Mg Capsule) 0.4 mg PO DAILY [facility] Last Admin: 03/14/22 08:46 Dose: 0.4 mg Documented By: Admin: 03/13/22 09:21 Dose: 0.4 mg Documented By: Admin: 03/12/22 09:31 Dose: 0.4 mg Documented By: Admin: 03/11/22 09:59 Dose: 0.4 mg Documented By: DEYANIRA Tamsulosin HCl (Tamsulosin 0.4 Mg Capsule) 0.4 mg PO DAILY [facility] Last Admin: 03/11/22 14:44 Dose: Not Given Documented By: CHELLE(2) Timolol Maleate (Timolol 0.5% Ophth) 1 drops EYE-BOTH DAILY [facility] Last Admin: 03/11/22 14:44 Dose: Not Given Documented By: CHELLE(2) Timolol Maleate (Timolol 0.5% Ophth) 1 drops EYE-BOTH DAILY [facility] Last Admin: 03/14/22 08:45 Dose: 1 drop Documented By: Admin: 03/13/22 09:20 Dose: 1 drop Documented By: Admin: 03/12/22 09:30 Dose: 1 drop Documented By: Admin: 03/11/22 19:04 Dose: 1 drop Documented By: ANU Vancomycin HCl (Vancomycin Per Pharmacy) 1 request MIS NOW ONE Stop: 03/09/22 19:13 Last Admin: 03/09/22 23:50 Dose: Not Given Documented By: AMANDA Vancomycin HCl (Vancomycin Per Pharmacy) 1 request MISC NOW ONE Stop: 03/09/22 21:16 Last Admin: 03/09/22 23:51 Dose: Not Given Documented By: AMANDA Vancomycin HCl (Vancomycin Per Pharmacy) 1 request MIS NOW NR Stop: 03/10/22 21:44 Vancomycin HCl (Vancomycin Per Pharmacy) 1 request MIS NOW NR Stop: 03/10/22 22:14 Vital Signs Vital signs: Vital Signs - 8 hr 03/14/22 10:30 03/14/22 09:56 03/14/22 09:57 Temperature 98.3 F Pulse Rate 72 Respiratory Rate 20 Blood Pressure 145/63 H Blood Pressure [Left Wrist] 145/63 H Pulse Oximetry 97 96 Oxygen Delivery Method Nasal Cannula Nasal Cannula Oxygen Flow Rate 2 2 03/14/22 09:57 03/14/22 13:08 03/14/22 15:48 Temperature Pulse Rate 72 83 71 Respiratory Rate 18 20 Blood Pressure 169/76 H 165/72 H Blood Pressure [Left Wrist] Pulse Oximetry 96 93 95 Oxygen Delivery Method Nasal Cannula Nasal Cannula Nasal Cannula Oxygen Flow Rate 2 2 2 <Heidi Jennings, - Last Filed: 03/14/22 13:18> Orders Ordered: Discontinued Medications Acetaminophen (Acetaminophen 325 Mg Tablet) 650 mg PO NOW ONE Stop: 03/09/22 18:32 Last Admin: 03/09/22 19:09 Dose: 650 mg Documented By: GUDELIA Hydrocodone Bitart/Acetaminophen (Hydrocodone/Acet 5/325 Tablet) 1 tab PO NOW ONE Stop: 03/09/22 18:32 Last Admin: 03/09/22 19:09 Dose: 1 tab Documented By: GUDELIA Bupivacaine HCl (Bupivacaine 0.5% (Pf) Vial) 30 ml INJ NOW ONE Stop: 03/09/22 21:43 Last Admin: 03/09/22 21:42 Dose: 7 ml Documented By: MITUL Bupivacaine HCl (Bupivacaine 0.5% (Pf) Vial) 30 ml INJ INTRA-OP ONE Stop: 03/12/22 12:37 Last Admin: 03/12/22 12:37 Dose: 7 ml Documented By: MITUL Sodium Chloride 1,000 ml/ (Gentamicin Sulfate 80 mg) 0 ml IRR NOW ONE Stop: 03/09/22 21:43 Last Admin: 03/09/22 21:43 Dose: 1,002 ml Documented By: MITUL Sodium Chloride 1,000 ml/ (Gentamicin Sulfate 80 mg) 0 ml IRR NOW ONE Stop: 03/12/22 12:38 Last Admin: 03/12/22 12:38 Dose: 1,002 ml Documented By: MITUL Diphtheria/Tetanus/Acell Pertussis (Tet,Diph,Pertuss(Acell),Vac/Pf 0.5 Ml Syringe) 0.5 ml IM .ONCE ONE Stop: 03/09/22 16:30 Last Admin: 03/09/22 16:38 Dose: 0.5 ml Documented By: LYN Dorzolamide HCl (Dorzolamide 2% Ophth 10 Ml) 1 drops EYE-BOTH DAILY [facility] Last Admin: 03/14/22 08:45 Dose: 1 drops Documented By: Admin: 03/13/22 09:20 Dose: 1 drops Documented By: Admin: 03/12/22 09:33 Dose: 1 drops Documented By: Admin: 03/11/22 19:00 Dose: 1 drops Documented By: ANU Doxycycline Hyclate (Doxycycline Hyclate 100 Mg Tablet) 100 mg PO NOW ONE Stop: 03/09/22 16:30 Last Admin: 03/09/22 16:38 Dose: 100 mg Documented By: LYN Ergocalciferol (Ergocalciferol (Vitamin D2) 50,000 Unit Capsule) 50,000 unit PO Fr@0900 [facility] Fentanyl (Fentanyl 100 Mcg/2 Ml Inj) 0 mcg IV Q5M PRN PRN Reason: Pain, Moderate (4-6) Finasteride (Finasteride 5 Mg Tablet) 5 mg PO NOW ONE Stop: 03/11/22 10:56 Last Admin: 03/11/22 11:42 Dose: 5 mg Documented By: ANU Finasteride (Finasteride 5 Mg Tablet) 5 mg PO DAILY [facility] Last Admin: 03/14/22 08:46 Dose: 5 mg Documented By: Admin: 03/13/22 09:22 Dose: 5 mg Documented By: Admin: 03/12/22 09:32 Dose: 5 mg Documented By: Admin: 03/11/22 14:22 Dose: Not Given Documented By: ANU Furosemide (Furosemide 40 Mg/4 Ml Vial) 40 mg IV NOW ONE Stop: 03/10/22 09:33 Last Admin: 03/10/22 09:47 Dose: 40 mg Documented By: BENNY Furosemide (Furosemide 100 Mg/10 Ml Vial) 60 mg IV NOW ONE Stop: 03/11/22 09:56 Last Admin: 03/11/22 09:59 Dose: 60 mg Documented By: DEYANIRA Furosemide (Furosemide 40 Mg Tablet) 160 mg PO DAILY [facility] Last Admin: 03/11/22 14:44 Dose: Not Given Documented By: CHELLE(2) Furosemide (Furosemide 40 Mg Tablet) 160 mg PO 1900 [facility] Last Admin: 03/13/22 22:00 Dose: 160 mg Documented By: Admin: 03/12/22 20:14 Dose: 160 mg Documented By: Admin: 03/11/22 19:04 Dose: 160 mg Documented By: ANU Hydralazine HCl (Hydralazine 20 Mg/Ml Vial) 10 mg IV NOW ONE Stop: 03/09/22 18:27 Last Admin: 03/09/22 19:07 Dose: 10 mg Documented By: GUDELIA Ceftriaxone Sodium 1,000 mg/ (Sodium Chloride) 100 mls @ 200 mls/hr IV NOW ONE Stop: 03/09/22 17:00 Last Infusion: 03/09/22 18:26 Dose: 0 mls/hr Documented By: Admin: 03/09/22 17:38 Dose: 200 mls/hr Documented By: GUDELIA Metronidazole (Flagyl) 500 mg in 100 mls @ 100 mls/hr IV NOW ONE Stop: 03/09/22 17:58 Last Infusion: 03/09/22 19:35 Dose: 0 mls/hr Documented By: Admin: 03/09/22 18:24 Dose: 100 mls/hr Documented By: GUDELIA Vancomycin HCl/Dextrose (Vancomycin) 2,000 mg in 400 mls @ 200 mls/hr IV NOW ONE Stop: 03/09/22 23:14 Last Infusion: 03/10/22 00:08 Dose: 0 mls/hr Documented By: Admin: 03/09/22 21:45 Dose: 200 mls/hr Documented By: CHRYSTAL Lactated Ringer's (Lactated Ringers) 1,000 mls @ 42 mls/hr IV NOW ONE Stop: 03/10/22 20:18 Last Infusion: 03/09/22 23:50 Dose: 0 mls/hr Documented By: Admin: 03/09/22 23:49 Dose: 42 mls/hr Documented By: MAGUE Ceftriaxone Sodium 2,000 mg/ (Sodium Chloride) 100 mls @ 200 mls/hr IV DAILY [facility] Last Infusion: 03/14/22 09:53 Dose: 0 mls/hr Documented By: Infusion: 03/14/22 09:21 Dose: 200 mls/hr Documented By: Infusion: 03/14/22 09:18 Dose: 0 mls/hr Documented By: Admin: 03/14/22 09:00 Dose: 200 mls/hr Documented By: Infusion: 03/13/22 09:58 Dose: 0 mls/hr Documented By: Admin: 03/13/22 09:21 Dose: 200 mls/hr Documented By: Infusion: 03/12/22 11:11 Dose: 0 mls/hr Documented By: Admin: 03/12/22 10:38 Dose: 200 mls/hr Documented By: Infusion: 03/11/22 11:18 Dose: 0 mls/hr Documented By: Admin: 03/11/22 09:56 Dose: 200 mls/hr Documented By: Infusion: 03/10/22 12:19 Dose: 0 mls/hr Documented By: Admin: 03/10/22 10:55 Dose: 200 mls/hr Documented By: BENNY Metronidazole (Flagyl) 500 mg in 100 mls @ 100 mls/hr IV Q8H [facility] Last Infusion: 03/10/22 10:38 Dose: 0 mls/hr Documented By: Admin: 03/10/22 09:39 Dose: 100 mls/hr Documented By: BENNY Metronidazole (Flagyl) 500 mg in 100 mls @ 100 mls/hr IV Q8H [facility] Last Infusion: 03/11/22 03:30 Dose: 0 mls/hr Documented By: Admin: 03/11/22 02:28 Dose: 100 mls/hr Documented By: Infusion: 03/10/22 20:38 Dose: 0 mls/hr Documented By: Admin: 03/10/22 19:34 Dose: 100 mls/hr Documented By: ELAN Vancomycin HCl/Dextrose (Vancomycin) 2,000 mg in 400 mls @ 200 mls/hr IV NOW ONE Stop: 03/12/22 08:59 Last Infusion: 03/12/22 10:38 Dose: 0 mls/hr Documented By: Admin: 03/12/22 08:13 Dose: 200 mls/hr Documented By: CHELLE Sodium Chloride (Normal Saline 0.9%) 500 mls @ 21 mls/hr IV CONT [facility] Last Admin: 03/13/22 10:00 Dose: Not Given Documented By: CHELLE Sodium Chloride (Normal Saline 0.9%) 1,000 mls @ 21 mls/hr IV CONT [facility] Last Infusion: 03/12/22 13:26 Dose: 0 mls/hr Documented By: Admin: 03/12/22 11:55 Dose: 21 mls/hr Documented By: YAZAN Losartan Potassium (Losartan 50 Mg Tablet) 100 mg PO DAILY [facility] Last Admin: 03/14/22 08:46 Dose: 100 mg Documented By: Admin: 03/13/22 09:21 Dose: 100 mg Documented By: Admin: 03/12/22 09:31 Dose: 100 mg Documented By: Admin: 03/11/22 10:37 Dose: 100 mg Documented By: DEYANIRA Minoxidil (Minoxidil 2.5 Mg Tablet) 5 mg PO NOW ONE Stop: 03/11/22 10:57 Last Admin: 03/11/22 11:42 Dose: 5 mg Documented By: ANU Minoxidil (Minoxidil 2.5 Mg Tablet) 5 mg PO SEEINSTR [facility] Last Admin: 03/12/22 09:33 Dose: 5 mg Documented By: ERNST Oxycodone HCl (Oxycodone Ir 5 Mg Tablet) 5 mg PO NOW ONE Stop: 03/11/22 13:38 Last Admin: 03/11/22 14:23 Dose: Not Given Documented By: ANU Oxycodone/Acetaminophen (Oxycodone/Acetaminophen 5/325 Tablet) 1 tab PO PACUNOW PRN PRN Reason: Mild or Moderate Pain Pantoprazole Sodium (Pantoprazole Dr 40 Mg Tablet) 40 mg PO DAILY [facility] Last Admin: 03/14/22 08:46 Dose: 40 mg Documented By: Admin: 03/13/22 09:21 Dose: 40 mg Documented By: Admin: 03/12/22 09:31 Dose: 40 mg Documented By: Admin: 03/11/22 14:22 Dose: Not Given Documented By: ANU Tamsulosin HCl (Tamsulosin 0.4 Mg Capsule) 0.4 mg PO DAILY [facility] Last Admin: 03/14/22 08:46 Dose: 0.4 mg Documented By: Admin: 03/13/22 09:21 Dose: 0.4 mg Documented By: Admin: 03/12/22 09:31 Dose: 0.4 mg Documented By: Admin: 03/11/22 09:59 Dose: 0.4 mg Documented By: DEYANIRA Tamsulosin HCl (Tamsulosin 0.4 Mg Capsule) 0.4 mg PO DAILY [facility] Last Admin: 03/11/22 14:44 Dose: Not Given Documented By: CHELLE(2) Timolol Maleate (Timolol 0.5% Ophth) 1 drops EYE-BOTH DAILY [facility] Last Admin: 03/11/22 14:44 Dose: Not Given Documented By: CHELLE(2) Timolol Maleate (Timolol 0.5% Ophth) 1 drops EYE-BOTH DAILY [facility] Last Admin: 03/14/22 08:45 Dose: 1 drop Documented By: Admin: 03/13/22 09:20 Dose: 1 drop Documented By: Admin: 03/12/22 09:30 Dose: 1 drop Documented By: Admin: 03/11/22 19:04 Dose: 1 drop Documented By: ANU Vancomycin HCl (Vancomycin Per Pharmacy) 1 request MISC NOW ONE Stop: 03/09/22 19:13 Last Admin: 03/09/22 23:50 Dose: Not Given Documented By: AMANDA Vancomycin HCl (Vancomycin Per Pharmacy) 1 request MISC NOW ONE Stop: 03/09/22 21:16 Last Admin: 03/09/22 23:51 Dose: Not Given Documented By: AMANDA Vancomycin HCl (Vancomycin Per Pharmacy) 1 request MISC NOW NR Stop: 03/10/22 21:44 Vancomycin HCl (Vancomycin Per Pharmacy) 1 request MISC NOW NR Stop: 03/10/22 22:14 Vital Signs Vital signs: Vital Signs - 8 hr 03/14/22 10:30 03/14/22 09:56 03/14/22 09:57 Temperature 98.3 F Pulse Rate 72 Respiratory Rate 20 Blood Pressure 145/63 H Blood Pressure [Left Wrist] 145/63 H Pulse Oximetry 97 96 Oxygen Delivery Method Nasal Cannula Nasal Cannula Oxygen Flow Rate 2 2 03/14/22 09:57 03/14/22 13:08 03/14/22 15:48 Temperature Pulse Rate 72 83 71 Respiratory Rate 18 20 Blood Pressure 169/76 H 165/72 H Blood Pressure [Left Wrist] Pulse Oximetry 96 93 95 Oxygen Delivery Method Nasal Cannula Nasal Cannula Nasal Cannula Oxygen Flow Rate 2 2 2 <Aristoe Scales DO - Last Filed: 03/13/22 06:29> Orders Ordered: Discontinued Medications Acetaminophen (Acetaminophen 325 Mg Tablet) 650 mg PO NOW ONE Stop: 03/09/22 18:32 Last Admin: 03/09/22 19:09 Dose: 650 mg Documented By: GUDELIA Hydrocodone Bitart/Acetaminophen (Hydrocodone/Acet 5/325 Tablet) 1 tab PO NOW ONE Stop: 03/09/22 18:32 Last Admin: 03/09/22 19:09 Dose: 1 tab Documented By: GUDELIA Bupivacaine HCl (Bupivacaine 0.5% (Pf) Vial) 30 ml INJ NOW ONE Stop: 03/09/22 21:43 Last Admin: 03/09/22 21:42 Dose: 7 ml Documented By: MITUL Bupivacaine HCl (Bupivacaine 0.5% (Pf) Vial) 30 ml INJ INTRA-OP ONE Stop: 03/12/22 12:37 Last Admin: 03/12/22 12:37 Dose: 7 ml Documented By: MITUL Sodium Chloride 1,000 ml/ (Gentamicin Sulfate 80 mg) 0 ml IRR NOW ONE Stop: 03/09/22 21:43 Last Admin: 03/09/22 21:43 Dose: 1,002 ml Documented By: MITUL Sodium Chloride 1,000 ml/ (Gentamicin Sulfate 80 mg) 0 ml IRR NOW ONE Stop: 03/12/22 12:38 Last Admin: 03/12/22 12:38 Dose: 1,002 ml Documented By: MITUL Diphtheria/Tetanus/Acell Pertussis (Tet,Diph,Pertuss(Acell),Vac/Pf 0.5 Ml Syringe) 0.5 ml IM .ONCE ONE Stop: 03/09/22 16:30 Last Admin: 03/09/22 16:38 Dose: 0.5 ml Documented By: LYN Dorzolamide HCl (Dorzolamide 2% Ophth 10 Ml) 1 drops EYE-BOTH DAILY [facility] Last Admin: 03/14/22 08:45 Dose: 1 drops Documented By: Admin: 03/13/22 09:20 Dose: 1 drops Documented By: Admin: 03/12/22 09:33 Dose: 1 drops Documented By: Admin: 03/11/22 19:00 Dose: 1 drops Documented By: ANU Doxycycline Hyclate (Doxycycline Hyclate 100 Mg Tablet) 100 mg PO NOW ONE Stop: 03/09/22 16:30 Last Admin: 03/09/22 16:38 Dose: 100 mg Documented By: LYN Ergocalciferol (Ergocalciferol (Vitamin D2) 50,000 Unit Capsule) 50,000 unit PO Fr@0900 [facility] Fentanyl (Fentanyl 100 Mcg/2 Ml Inj) 0 mcg IV Q5M PRN PRN Reason: Pain, Moderate (4-6) Finasteride (Finasteride 5 Mg Tablet) 5 mg PO NOW ONE Stop: 03/11/22 10:56 Last Admin: 03/11/22 11:42 Dose: 5 mg Documented By: ANU Finasteride (Finasteride 5 Mg Tablet) 5 mg PO DAILY [facility] Last Admin: 03/14/22 08:46 Dose: 5 mg Documented By: Admin: 03/13/22 09:22 Dose: 5 mg Documented By: Admin: 03/12/22 09:32 Dose: 5 mg Documented By: Admin: 03/11/22 14:22 Dose: Not Given Documented By: ANU Furosemide (Furosemide 40 Mg/4 Ml Vial) 40 mg IV NOW ONE Stop: 03/10/22 09:33 Last Admin: 03/10/22 09:47 Dose: 40 mg Documented By: BENNY Furosemide (Furosemide 100 Mg/10 Ml Vial) 60 mg IV NOW ONE Stop: 03/11/22 09:56 Last Admin: 03/11/22 09:59 Dose: 60 mg Documented By: DEYANIRA Furosemide (Furosemide 40 Mg Tablet) 160 mg PO DAILY [facility] Last Admin: 03/11/22 14:44 Dose: Not Given Documented By: CHELLE(2) Furosemide (Furosemide 40 Mg Tablet) 160 mg PO 1900 [facility] Last Admin: 03/13/22 22:00 Dose: 160 mg Documented By: Admin: 03/12/22 20:14 Dose: 160 mg Documented By: Admin: 03/11/22 19:04 Dose: 160 mg Documented By: ANU Hydralazine HCl (Hydralazine 20 Mg/Ml Vial) 10 mg IV NOW ONE Stop: 03/09/22 18:27 Last Admin: 03/09/22 19:07 Dose: 10 mg Documented By: GUDELIA Ceftriaxone Sodium 1,000 mg/ (Sodium Chloride) 100 mls @ 200 mls/hr IV NOW ONE Stop: 03/09/22 17:00 Last Infusion: 03/09/22 18:26 Dose: 0 mls/hr Documented By: Admin: 03/09/22 17:38 Dose: 200 mls/hr Documented By: GUDELIA Metronidazole (Flagyl) 500 mg in 100 mls @ 100 mls/hr IV NOW ONE Stop: 03/09/22 17:58 Last Infusion: 03/09/22 19:35 Dose: 0 mls/hr Documented By: Admin: 03/09/22 18:24 Dose: 100 mls/hr Documented By: GUDELIA Vancomycin HCl/Dextrose (Vancomycin) 2,000 mg in 400 mls @ 200 mls/hr IV NOW ONE Stop: 03/09/22 23:14 Last Infusion: 03/10/22 00:08 Dose: 0 mls/hr Documented By: Admin: 03/09/22 21:45 Dose: 200 mls/hr Documented By: CHRYSTAL Lactated Ringer's (Lactated Ringers) 1,000 mls @ 42 mls/hr IV NOW ONE Stop: 03/10/22 20:18 Last Infusion: 03/09/22 23:50 Dose: 0 mls/hr Documented By: Admin: 03/09/22 23:49 Dose: 42 mls/hr Documented By: MAGUE Ceftriaxone Sodium 2,000 mg/ (Sodium Chloride) 100 mls @ 200 mls/hr IV DAILY [facility] Last Infusion: 03/14/22 09:53 Dose: 0 mls/hr Documented By: Infusion: 03/14/22 09:21 Dose: 200 mls/hr Documented By: Infusion: 03/14/22 09:18 Dose: 0 mls/hr Documented By: Admin: 03/14/22 09:00 Dose: 200 mls/hr Documented By: Infusion: 03/13/22 09:58 Dose: 0 mls/hr Documented By: Admin: 03/13/22 09:21 Dose: 200 mls/hr Documented By: Infusion: 03/12/22 11:11 Dose: 0 mls/hr Documented By: Admin: 03/12/22 10:38 Dose: 200 mls/hr Documented By: Infusion: 03/11/22 11:18 Dose: 0 mls/hr Documented By: Admin: 03/11/22 09:56 Dose: 200 mls/hr Documented By: Infusion: 03/10/22 12:19 Dose: 0 mls/hr Documented By: Admin: 03/10/22 10:55 Dose: 200 mls/hr Documented By: BENNY Metronidazole (Flagyl) 500 mg in 100 mls @ 100 mls/hr IV Q8H AIME Last Infusion: 03/10/22 10:38 Dose: 0 mls/hr Documented By: Admin: 03/10/22 09:39 Dose: 100 mls/hr Documented By: BENNY Metronidazole (Flagyl) 500 mg in 100 mls @ 100 mls/hr IV Q8H AIME Last Infusion: 03/11/22 03:30 Dose: 0 mls/hr Documented By: Admin: 03/11/22 02:28 Dose: 100 mls/hr Documented By: Infusion: 03/10/22 20:38 Dose: 0 mls/hr Documented By: Admin: 03/10/22 19:34 Dose: 100 mls/hr Documented By: ELAN Vancomycin HCl/Dextrose (Vancomycin) 2,000 mg in 400 mls @ 200 mls/hr IV NOW ONE Stop: 03/12/22 08:59 Last Infusion: 03/12/22 10:38 Dose: 0 mls/hr Documented By: Admin: 03/12/22 08:13 Dose: 200 mls/hr Documented By: CHELLE Sodium Chloride (Normal Saline 0.9%) 500 mls @ 21 mls/hr IV CONT [facility] Last Admin: 03/13/22 10:00 Dose: Not Given Documented By: CHELLE Sodium Chloride (Normal Saline 0.9%) 1,000 mls @ 21 mls/hr IV CONT AIME Last Infusion: 03/12/22 13:26 Dose: 0 mls/hr Documented By: Admin: 03/12/22 11:55 Dose: 21 mls/hr Documented By: YAZAN Losartan Potassium (Losartan 50 Mg Tablet) 100 mg PO DAILY [facility] Last Admin: 03/14/22 08:46 Dose: 100 mg Documented By: Admin: 03/13/22 09:21 Dose: 100 mg Documented By: Admin: 03/12/22 09:31 Dose: 100 mg Documented By: Admin: 03/11/22 10:37 Dose: 100 mg Documented By: DEYANIRA Minoxidil (Minoxidil 2.5 Mg Tablet) 5 mg PO NOW ONE Stop: 03/11/22 10:57 Last Admin: 03/11/22 11:42 Dose: 5 mg Documented By: ANU Minoxidil (Minoxidil 2.5 Mg Tablet) 5 mg PO SEEINSTR [facility] Last Admin: 03/12/22 09:33 Dose: 5 mg Documented By: ERNST Oxycodone HCl (Oxycodone Ir 5 Mg Tablet) 5 mg PO NOW ONE Stop: 03/11/22 13:38 Last Admin: 03/11/22 14:23 Dose: Not Given Documented By: ANU Oxycodone/Acetaminophen (Oxycodone/Acetaminophen 5/325 Tablet) 1 tab PO PACUNOW PRN PRN Reason: Mild or Moderate Pain Pantoprazole Sodium (Pantoprazole Dr 40 Mg Tablet) 40 mg PO DAILY [facility] Last Admin: 03/14/22 08:46 Dose: 40 mg Documented By: Admin: 03/13/22 09:21 Dose: 40 mg Documented By: Admin: 03/12/22 09:31 Dose: 40 mg Documented By: Admin: 03/11/22 14:22 Dose: Not Given Documented By: ANU Tamsulosin HCl (Tamsulosin 0.4 Mg Capsule) 0.4 mg PO DAILY [facility] Last Admin: 03/14/22 08:46 Dose: 0.4 mg Documented By: Admin: 03/13/22 09:21 Dose: 0.4 mg Documented By: Admin: 03/12/22 09:31 Dose: 0.4 mg Documented By: Admin: 03/11/22 09:59 Dose: 0.4 mg Documented By: DEYANIRA Tamsulosin HCl (Tamsulosin 0.4 Mg Capsule) 0.4 mg PO DAILY [facility] Last Admin: 03/11/22 14:44 Dose: Not Given Documented By: CHELLE(2) Timolol Maleate (Timolol 0.5% Ophth) 1 drops EYE-BOTH DAILY [facility] Last Admin: 03/11/22 14:44 Dose: Not Given Documented By: CHELLE(2) Timolol Maleate (Timolol 0.5% Ophth) 1 drops EYE-BOTH DAILY [facility] Last Admin: 03/14/22 08:45 Dose: 1 drop Documented By: Admin: 03/13/22 09:20 Dose: 1 drop Documented By: Admin: 03/12/22 09:30 Dose: 1 drop Documented By: Admin: 03/11/22 19:04 Dose: 1 drop Documented By: ANU Vancomycin HCl (Vancomycin Per Pharmacy) 1 request MISC NOW ONE Stop: 03/09/22 19:13 Last Admin: 03/09/22 23:50 Dose: Not Given Documented By: AMANDA Vancomycin HCl (Vancomycin Per Pharmacy) 1 request MISC NOW ONE Stop: 03/09/22 21:16 Last Admin: 03/09/22 23:51 Dose: Not Given Documented By: AMANDA Vancomycin HCl (Vancomycin Per Pharmacy) 1 request MISC NOW NR Stop: 03/10/22 21:44 Vancomycin HCl (Vancomycin Per Pharmacy) 1 request MISC NOW NR Stop: 03/10/22 22:14 Vital Signs Vital signs: Vital Signs - 8 hr 03/14/22 10:30 03/14/22 09:56 03/14/22 09:57 Temperature 98.3 F Pulse Rate 72 Respiratory Rate 20 Blood Pressure 145/63 H Blood Pressure [Left Wrist] 145/63 H Pulse Oximetry 97 96 Oxygen Delivery Method Nasal Cannula Nasal Cannula Oxygen Flow Rate 2 2 03/14/22 09:57 03/14/22 13:08 03/14/22 15:48 Temperature Pulse Rate 72 83 71 Respiratory Rate 18 20 Blood Pressure 169/76 H 165/72 H Blood Pressure [Left Wrist] Pulse Oximetry 96 93 95 Oxygen Delivery Method Nasal Cannula Nasal Cannula Nasal Cannula Oxygen Flow Rate 2 2 2 MDM - Skin/Abscess/Foreign Bdy <Jesenia Quach [facility] - Last Filed: 03/15/22 14:56> Lab Data Result diagrams: 03/14/22 10:22 03/14/22 10:22 Labs: Lab Results 03/09/22 03/09/22 03/09/22 Range/Units 14:13 16:29 16:29 WBC 7.3 (4.5-11.0) X10^3/uL RBC 2.77 L (4.5-5.9) X10^6/uL Hgb 8.9 L (13.5-17.5) g/dL Hct 26.3 L (41-53) % MCV 95.0 (80-100) fL MCH 32.1 (26-34) PG MCHC 33.8 (30-36) % RDW 16.6 H (11.6-14.8) % Plt Count 127 L (150-400) X10^3/uL Neut % (Auto) 78.1 H (50-75) % Lymph % (Auto) 7.2 L (25-40) % Leake % (Auto) 3.7 (3-14) % Eos % (Auto) 10.7 H (2-4) % Baso % (Auto) 0.3 (0-2) % Neut # (Auto) 5700 (1910-2408) /uL Lymph # (Auto) 500 L (4122-9237) /uL Leake # (Auto) 300 (0-900) /uL Eos # (Auto) 800 H (0-450) /uL Baso # (Auto) 0 (0-100) /uL ESR (0-15) MM/HR ABG pH (7.35-7.45) ABG pCO2 (35-45) mmHg ABG pO2 (80-100) mmHg ABG HCO3 (22-26) mmol/L ABG Total CO2 (21-31) mmol/L ABG O2 Saturation (95-100) % ABG Base Excess (-2-2) mmol/L FiO2 Sodium 140 (137-145) mmol/L Potassium 4.5 (3.4-5.1) mmol/L Chloride 97 L (98-107) mmol/L Carbon Dioxide 29 (22-32) mmol/L BUN 58 H (9-20) mg/dL Creatinine 7.84 H* (0.66-1.25) mg/dL Estimated GFR 7 L (>60) mL/min BUN/Creatinine Ratio 7.4 (6-22) Glucose 141 H (80-110) mg/dL Lactate (0.7-2.1) mmol/L Calcium 8.6 (8.4-10.2) mg/dL Total Bilirubin 0.7 (0.2-1.3) mg/dL AST 21 (17-59) IU/L ALT 17 (<50) IU/L Alkaline Phosphatase 72 (38-126) U/L C-Reactive Protein (<1.0) mg/dL Total Protein 6.5 (6.3-8.2) g/dL Albumin 3.7 (3.5-5.0) g/dL Globulin 2.8 (1.7-4.1) g/dL Albumin/Globulin Ratio 1.3 (1.0-2.8) Procalcitonin 0.70 H (<0.5) ng/mL Random Vancomycin (10-40) ug/mL SARS-CoV-2 (PCR) Negative (Negative) 03/09/22 03/09/22 03/09/22 Range/Units 16:29 16:29 16:29 WBC (4.5-11.0) X10^3/uL RBC (4.5-5.9) X10^6/uL Hgb (13.5-17.5) g/dL Hct (41-53) % MCV (80-100) fL MCH (26-34) PG MCHC (30-36) % RDW (11.6-14.8) % Plt Count (150-400) X10^3/uL Neut % (Auto) (50-75) % Lymph % (Auto) (25-40) % Leake % (Auto) (3-14) % Eos % (Auto) (2-4) % Baso % (Auto) (0-2) % Neut # (Auto) (4362-3709) /uL Lymph # (Auto) (1078-9058) /uL Leake # (Auto) (0-900) /uL Eos # (Auto) (0-450) /uL Baso # (Auto) (0-100) /uL ESR 88 H (0-15) MM/HR ABG pH (7.35-7.45) ABG pCO2 (35-45) mmHg ABG pO2 (80-100) mmHg ABG HCO3 (22-26) mmol/L ABG Total CO2 (21-31) mmol/L ABG O2 Saturation (95-100) % ABG Base Excess (-2-2) mmol/L FiO2 Sodium (137-145) mmol/L Potassium (3.4-5.1) mmol/L Chloride (98-107) mmol/L Carbon Dioxide (22-32) mmol/L BUN (9-20) mg/dL Creatinine (0.66-1.25) mg/dL Estimated GFR (>60) mL/min BUN/Creatinine Ratio (6-22) Glucose (80-110) mg/dL Lactate 0.9 (0.7-2.1) mmol/L Calcium (8.4-10.2) mg/dL Total Bilirubin (0.2-1.3) mg/dL AST (17-59) IU/L ALT (<50) IU/L Alkaline Phosphatase (38-126) U/L C-Reactive Protein 18.4 H (<1.0) mg/dL Total Protein (6.3-8.2) g/dL Albumin (3.5-5.0) g/dL Globulin (1.7-4.1) g/dL Albumin/Globulin Ratio (1.0-2.8) Procalcitonin (<0.5) ng/mL Random Vancomycin (10-40) ug/mL SARS-CoV-2 (PCR) (Negative) 03/10/22 03/10/22 03/10/22 Range/Units 08:15 08:15 12:26 WBC 7.2 (4.5-11.0) X10^3/uL RBC 2.87 L (4.5-5.9) X10^6/uL Hgb 9.2 L (13.5-17.5) g/dL Hct 27.5 L (41-53) % MCV 95.6 (80-100) fL MCH 31.9 (26-34) PG MCHC 33.3 (30-36) % RDW 16.4 H (11.6-14.8) % Plt Count 130 L (150-400) X10^3/uL Neut % (Auto) 79.9 H (50-75) % Lymph % (Auto) 2.3 L (25-40) % Leake % (Auto) 6.3 (3-14) % Eos % (Auto) 11.3 H (2-4) % Baso % (Auto) 0.2 (0-2) % Neut # (Auto) 5800 (1541-0898) /uL Lymph # (Auto) 200 L (4886-1534) /uL Leake # (Auto) 500 (0-900) /uL Eos # (Auto) 800 H (0-450) /uL Baso # (Auto) 0 (0-100) /uL ESR (0-15) MM/HR ABG pH 7.44 (7.35-7.45) ABG pCO2 38.3 (35-45) mmHg ABG pO2 77 L (80-100) mmHg ABG HCO3 26 (22-26) mmol/L ABG Total CO2 27 (21-31) mmol/L ABG O2 Saturation 96 (95-100) % ABG Base Excess 2.0 (-2-2) mmol/L FiO2 40 Sodium 138 (137-145) mmol/L Potassium 4.6 (3.4-5.1) mmol/L Chloride 98 (98-107) mmol/L Carbon Dioxide 22 (22-32) mmol/L BUN 65 H (9-20) mg/dL Creatinine 8.39 H* (0.66-1.25) mg/dL Estimated GFR 6 L (>60) mL/min BUN/Creatinine Ratio 7.7 (6-22) Glucose 138 H (80-110) mg/dL Lactate (0.7-2.1) mmol/L Calcium 8.7 (8.4-10.2) mg/dL Total Bilirubin 0.8 (0.2-1.3) mg/dL AST 18 (17-59) IU/L ALT 17 (<50) IU/L Alkaline Phosphatase 64 (38-126) U/L C-Reactive Protein (<1.0) mg/dL Total Protein 7.1 (6.3-8.2) g/dL Albumin 3.9 (3.5-5.0) g/dL Globulin 3.2 (1.7-4.1) g/dL Albumin/Globulin Ratio 1.2 (1.0-2.8) Procalcitonin (<0.5) ng/mL Random Vancomycin (10-40) ug/mL SARS-CoV-2 (PCR) (Negative) 03/11/22 03/11/22 03/11/22 Range/Units 07:40 07:40 07:40 WBC 6.1 (4.5-11.0) X10^3/uL RBC 2.72 L (4.5-5.9) X10^6/uL Hgb 8.7 L (13.5-17.5) g/dL Hct 25.9 L (41-53) % MCV 95.4 (80-100) fL MCH 31.9 (26-34) PG MCHC 33.4 (30-36) % RDW 16.0 H (11.6-14.8) % Plt Count 150 (150-400) X10^3/uL Neut % (Auto) 73.8 (50-75) % Lymph % (Auto) 4.5 L (25-40) % Leake % (Auto) 6.5 (3-14) % Eos % (Auto) 14.9 H (2-4) % Baso % (Auto) 0.3 (0-2) % Neut # (Auto) 4500 (4740-8144) /uL Lymph # (Auto) 300 L (0580-9146) /uL Leake # (Auto) 400 (0-900) /uL Eos # (Auto) 900 H (0-450) /uL Baso # (Auto) 0 (0-100) /uL ESR (0-15) MM/HR ABG pH (7.35-7.45) ABG pCO2 (35-45) mmHg ABG pO2 (80-100) mmHg ABG HCO3 (22-26) mmol/L ABG Total CO2 (21-31) mmol/L ABG O2 Saturation (95-100) % ABG Base Excess (-2-2) mmol/L FiO2 Sodium 138 (137-145) mmol/L Potassium 4.6 (3.4-5.1) mmol/L Chloride 99 (98-107) mmol/L Carbon Dioxide 24 (22-32) mmol/L BUN 77 H (9-20) mg/dL Creatinine 8.25 H* (0.66-1.25) mg/dL Estimated GFR 6 L (>60) mL/min BUN/Creatinine Ratio 9.3 (6-22) Glucose 117 H (80-110) mg/dL Lactate (0.7-2.1) mmol/L Calcium 8.6 (8.4-10.2) mg/dL Total Bilirubin 0.7 (0.2-1.3) mg/dL AST 22 (17-59) IU/L ALT 19 (<50) IU/L Alkaline Phosphatase 73 (38-126) U/L C-Reactive Protein (<1.0) mg/dL Total Protein 6.8 (6.3-8.2) g/dL Albumin 3.7 (3.5-5.0) g/dL Globulin 3.1 (1.7-4.1) g/dL Albumin/Globulin Ratio 1.2 (1.0-2.8) Procalcitonin 0.62 H (<0.5) ng/mL Random Vancomycin (10-40) ug/mL SARS-CoV-2 (PCR) (Negative) 03/12/22 03/12/22 03/12/22 Range/Units 04:55 08:44 08:44 WBC 6.5 (4.5-11.0) X10^3/uL RBC 2.54 L (4.5-5.9) X10^6/uL Hgb 8.1 L (13.5-17.5) g/dL Hct 24.3 L (41-53) % MCV 95.5 (80-100) fL MCH 32.0 (26-34) PG MCHC 33.5 (30-36) % RDW 16.3 H (11.6-14.8) % Plt Count 152 (150-400) X10^3/uL Neut % (Auto) 82.0 H (50-75) % Lymph % (Auto) 5.7 L (25-40) % Leake % (Auto) 6.2 (3-14) % Eos % (Auto) 5.5 H (2-4) % Baso % (Auto) 0.6 (0-2) % Neut # (Auto) 5300 (9341-5094) /uL Lymph # (Auto) 400 L (7503-2909) /uL Leake # (Auto) 400 (0-900) /uL Eos # (Auto) 400 (0-450) /uL Baso # (Auto) 0 (0-100) /uL ESR (0-15) MM/HR ABG pH (7.35-7.45) ABG pCO2 (35-45) mmHg ABG pO2 (80-100) mmHg ABG HCO3 (22-26) mmol/L ABG Total CO2 (21-31) mmol/L ABG O2 Saturation (95-100) % ABG Base Excess (-2-2) mmol/L FiO2 Sodium 138 (137-145) mmol/L Potassium 4.6 (3.4-5.1) mmol/L Chloride 98 (98-107) mmol/L Carbon Dioxide 27 (22-32) mmol/L BUN 64 H (9-20) mg/dL Creatinine 7.34 H (0.66-1.25) mg/dL Estimated GFR 7 L (>60) mL/min BUN/Creatinine Ratio 8.7 (6-22) Glucose 166 H (80-110) mg/dL Lactate (0.7-2.1) mmol/L Calcium 8.5 (8.4-10.2) mg/dL Total Bilirubin 0.5 (0.2-1.3) mg/dL AST 23 (17-59) IU/L ALT 19 (<50) IU/L Alkaline Phosphatase 72 (38-126) U/L C-Reactive Protein (<1.0) mg/dL Total Protein 6.4 (6.3-8.2) g/dL Albumin 3.5 (3.5-5.0) g/dL Globulin 2.9 (1.7-4.1) g/dL Albumin/Globulin Ratio 1.2 (1.0-2.8) Procalcitonin 0.90 H (<0.5) ng/mL Random Vancomycin 11.0 (10-40) ug/mL SARS-CoV-2 (PCR) (Negative) 03/13/22 03/13/22 03/14/22 Range/Units 10:38 10:38 10:22 WBC 7.9 (4.5-11.0) X10^3/uL RBC 2.63 L (4.5-5.9) X10^6/uL Hgb 8.4 L (13.5-17.5) g/dL Hct 25.5 L (41-53) % MCV 97.1 (80-100) fL MCH 32.0 (26-34) PG MCHC 33.0 (30-36) % RDW 16.9 H (11.6-14.8) % Plt Count 153 (150-400) X10^3/uL Neut % (Auto) 78.9 H (50-75) % Lymph % (Auto) 5.5 L (25-40) % Leake % (Auto) 4.0 (3-14) % Eos % (Auto) 11.2 H (2-4) % Baso % (Auto) 0.4 (0-2) % Neut # (Auto) 6200 (0371-7376) /uL Lymph # (Auto) 400 L (5109-6519) /uL Leake # (Auto) 300 (0-900) /uL Eos # (Auto) 900 H (0-450) /uL Baso # (Auto) 0 (0-100) /uL ESR (0-15) MM/HR ABG pH (7.35-7.45) ABG pCO2 (35-45) mmHg ABG pO2 (80-100) mmHg ABG HCO3 (22-26) mmol/L ABG Total CO2 (21-31) mmol/L ABG O2 Saturation (95-100) % ABG Base Excess (-2-2) mmol/L FiO2 Sodium 140 (137-145) mmol/L Potassium 4.5 (3.4-5.1) mmol/L Chloride 101 (98-107) mmol/L Carbon Dioxide 21 L (22-32) mmol/L BUN 71 H (9-20) mg/dL Creatinine 8.34 H* (0.66-1.25) mg/dL Estimated GFR 6 L (>60) mL/min BUN/Creatinine Ratio 8.5 (6-22) Glucose 139 H (80-110) mg/dL Lactate (0.7-2.1) mmol/L Calcium 8.3 L (8.4-10.2) mg/dL Total Bilirubin 0.4 (0.2-1.3) mg/dL AST 27 (17-59) IU/L ALT 21 (<50) IU/L Alkaline Phosphatase 94 (38-126) U/L C-Reactive Protein (<1.0) mg/dL Total Protein 6.6 (6.3-8.2) g/dL Albumin 3.6 (3.5-5.0) g/dL Globulin 3.0 (1.7-4.1) g/dL Albumin/Globulin Ratio 1.2 (1.0-2.8) Procalcitonin 0.98 H (<0.5) ng/mL Random Vancomycin 22.2 (10-40) ug/mL SARS-CoV-2 (PCR) (Negative) 03/14/22 03/14/22 Range/Units 10:22 10:22 WBC 11.0 (4.5-11.0) X10^3/uL RBC 2.49 L (4.5-5.9) X10^6/uL Hgb 7.9 L (13.5-17.5) g/dL Hct 23.9 L (41-53) % MCV 96.0 (80-100) fL MCH 31.7 (26-34) PG MCHC 33.0 (30-36) % RDW 16.4 H (11.6-14.8) % Plt Count 165 (150-400) X10^3/uL Neut % (Auto) 81.2 H (50-75) % Lymph % (Auto) 3.3 L (25-40) % Leake % (Auto) 4.0 (3-14) % Eos % (Auto) 10.6 H (2-4) % Baso % (Auto) 0.9 (0-2) % Neut # (Auto) 9000 H (2710-3378) /uL Lymph # (Auto) 400 L (5456-1647) /uL Leake # (Auto) 400 (0-900) /uL Eos # (Auto) 1200 H (0-450) /uL Baso # (Auto) 100 (0-100) /uL ESR (0-15) MM/HR ABG pH (7.35-7.45) ABG pCO2 (35-45) mmHg ABG pO2 (80-100) mmHg ABG HCO3 (22-26) mmol/L ABG Total CO2 (21-31) mmol/L ABG O2 Saturation (95-100) % ABG Base Excess (-2-2) mmol/L FiO2 Sodium 141 (137-145) mmol/L Potassium 4.8 (3.4-5.1) mmol/L Chloride 101 (98-107) mmol/L Carbon Dioxide 20 L (22-32) mmol/L BUN 79 H (9-20) mg/dL Creatinine 8.61 H* (0.66-1.25) mg/dL Estimated GFR 6 L (>60) mL/min BUN/Creatinine Ratio 9.2 (6-22) Glucose 208 H (80-110) mg/dL Lactate (0.7-2.1) mmol/L Calcium 8.2 L (8.4-10.2) mg/dL Total Bilirubin 0.4 (0.2-1.3) mg/dL AST 24 (17-59) IU/L ALT 23 (<50) IU/L Alkaline Phosphatase 106 (38-126) U/L C-Reactive Protein (<1.0) mg/dL Total Protein 6.5 (6.3-8.2) g/dL Albumin 3.5 (3.5-5.0) g/dL Globulin 3.0 (1.7-4.1) g/dL Albumin/Globulin Ratio 1.2 (1.0-2.8) Procalcitonin 0.81 H (<0.5) ng/mL Random Vancomycin (10-40) ug/mL SARS-CoV-2 (PCR) (Negative) Point of Care Testing Glucose POC 115 Imaging Data Extremity x-ray #1: Radiologist's Impression: PROCEDURE:? XR FOREARM RT 2V ? INDICATIONS:? infection ? TECHNIQUE:? 2 views of the forearm were acquired.? ? COMPARISON:? None. ? FINDINGS:? ? Bones:? No fractures or dislocations.? No suspicious bony lesions.? ? Soft tissues:? Surgical clips are seen in antecubital fossa.? No suspicious soft tissue calcifications or masses.? ? ? IMPRESSION:? No forearm fracture or dislocation.? No radiographic evidence of osteomyelitis. ? Dictated by: Mario Peacock M.D. on 03/09/2022 at 16:25 ? ? Approved by: Mario Peacock M.D. on 03/09/2022 at 16:26 ? Extremity x-ray #2: Radiologist's Impression: PROCEDURE:? XR HAND RT 2V ? INDICATIONS:? tenosynovitis? ? TECHNIQUE:? 2 views of the hand(s) acquired.? ? COMPARISON:? None. ? FINDINGS:? ? Bones:? No fractures or dislocations.? Carpal bones are normally aligned.? No suspicious bony lesions.? ? Soft tissues:? No suspicious soft tissue calcifications.? Dorsal soft tissue swelling over metacarpal heads are seen. ? ? IMPRESSION:? No gross acute right hand fracture or dislocation.? Dorsal right hand soft tissue swelling.? No bony erosive changes. ? ? Dictated by: Mario Peacock M.D. on 03/09/2022 at 16:25 ? ? Approved by: Mario Peacock M.D. on 03/09/2022 at 16:25 ? MDM Narrative Medical decision making narrative: This is a 72-year-old male with history of type 2 diabetes, is not antic oagulated, has CKD and is a Monday, , and Monday dialysis patient, he denies other significant medical conditions and presents to the emergency department with wound on his right hand 5th digit the distal tip which occurred one week ago. Patient states it started as a pus-filled blister on distal fingertips and it has progressed in to a wound covering the distal 1/3 of his 5th digit, it is edematous with erythema, weeping clear fluid, and he has lymphangitis tracking up his forearm without ability to extend his 5th digit and concern for extensor tenosynovitis. Patient was sent to the emergency department by Dr. Pierre from the walk-in clinic at [facility]. He has a right upper arm fistula which is what is currently used for his dialysis, he also has the left upper arm fistula which has not been used in at least one year. A peripheral IV was placed in his lower forearm on the left. Wound culture was obtained prior to antibiotics. X-ray of his right hand and forearm are negative for osseous erosion, fracture, dislocation, it does show right hand soft tissue swelling on the dorsum. Consultation with Orthopedics at [facility] with Dr. Aldridge for surgical debridement and admission for tenosynovitis with dialysis. Photos of patient's wounds were shared with the physician, he agrees that this is tenosynovitis and patient needs surgical washout and debridement emergently. There are no beds available at [facility], there are no beds available. Consultation with Dr. Kristina Harris about possible OR washout and debridement with boarding in the emergency department after OR to find a bed at another hospital with dialysis capabilities. She agrees to come and evaluate the pa tient, and of consultation was placed. Patient was given doxycycline initially in the emergency department when there was no IV access and concern for bilateral upper arm fistulas. IV access was later obtained, and lab work was obtained. Patient is not having leukocytosis although he does have mild anemia without any prior lab work to compare to, hemoglobin of 8.9, hematocrit of 26.3, platelet count of 127, no significant electrolyte abnormalities, sodium 140, potassium of 4.5, creatinine of 7.8 or with a BUN of 58, GFR of seven, lactate of 0.9, CRP is elevated at 18.4 and procalcitonin is elevated at 0.7, COVID PCR is negative, no elevation to his liver enzymes. Wound culture is pending, patient was given IV ceftriaxone, Flagyl, and vancomycin order for pharmacy to dose was placed. Dr. Kristina Harris arrived to the bedside to consent the patient for the operating room. <Jodie Zabala MD - Last Filed: 03/19/22 18:10> Lab Data Labs: Lab Results 03/09/22 03/09/22 03/09/22 Range/Units 14:13 16:29 16:29 WBC 7.3 (4.5-11.0) X10^3/uL RBC 2.77 L (4.5-5.9) X10^6/uL Hgb 8.9 L (13.5-17.5) g/dL Hct 26.3 L (41-53) % MCV 95.0 (80-100) fL MCH 32.1 (26-34) PG MCHC 33.8 (30-36) % RDW 16.6 H (11.6-14.8) % Plt Count 127 L (150-400) X10^3/uL Neut % (Auto) 78.1 H (50-75) % Lymph % (Auto) 7.2 L (25-40) % Leake % (Auto) 3.7 (3-14) % Eos % (Auto) 10.7 H (2-4) % Baso % (Auto) 0.3 (0-2) % Neut # (Auto) 5700 (7647-4802) /uL Lymph # (Auto) 500 L (3107-0223) /uL Leake # (Auto) 300 (0-900) /uL Eos # (Auto) 800 H (0-450) /uL Baso # (Auto) 0 (0-100) /uL ESR (0-15) MM/HR ABG pH (7.35-7.45) ABG pCO2 (35-45) mmHg ABG pO2 (80-100) mmHg ABG HCO3 (22-26) mmol/L ABG Total CO2 (21-31) mmol/L ABG O2 Saturation (95-100) % ABG Base Excess (-2-2) mmol/L FiO2 Sodium 140 (137-145) mmol/L Potassium 4.5 (3.4-5.1) mmol/L Chloride 97 L (98-107) mmol/L Carbon Dioxide 29 (22-32) mmol/L BUN 58 H (9-20) mg/dL Creatinine 7.84 H* (0.66-1.25) mg/dL Estimated GFR 7 L (>60) mL/min BUN/Creatinine Ratio 7.4 (6-22) Glucose 141 H (80-110) mg/dL Lactate (0.7-2.1) mmol/L Calcium 8.6 (8.4-10.2) mg/dL Total Bilirubin 0.7 (0.2-1.3) mg/dL AST 21 (17-59) IU/L ALT 17 (<50) IU/L Alkaline Phosphatase 72 (38-126) U/L C-Reactive Protein (<1.0) mg/dL Total Protein 6.5 (6.3-8.2) g/dL Albumin 3.7 (3.5-5.0) g/dL Globulin 2.8 (1.7-4.1) g/dL Albumin/Globulin Ratio 1.3 (1.0-2.8) Procalcitonin 0.70 H (<0.5) ng/mL Random Vancomycin (10-40) ug/mL SARS-CoV-2 (PCR) Negative (Negative) 03/09/22 03/09/22 03/09/22 Range/Units 16:29 16:29 16:29 WBC (4.5-11.0) X10^3/uL RBC (4.5-5.9) X10^6/uL Hgb (13.5-17.5) g/dL Hct (41-53) % MCV (80-100) fL MCH (26-34) PG MCHC (30-36) % RDW (11.6-14.8) % Plt Count (150-400) X10^3/uL Neut % (Auto) (50-75) % Lymph % (Auto) (25-40) % Leake % (Auto) (3-14) % Eos % (Auto) (2-4) % Baso % (Auto) (0-2) % Neut # (Auto) (5912-4922) /uL Lymph # (Auto) (0882-9988) /uL Leake # (Auto) (0-900) /uL Eos # (Auto) (0-450) /uL Baso # (Auto) (0-100) /uL ESR 88 H (0-15) MM/HR ABG pH (7.35-7.45) ABG pCO2 (35-45) mmHg ABG pO2 (80-100) mmHg ABG HCO3 (22-26) mmol/L ABG Total CO2 (21-31) mmol/L ABG O2 Saturation (95-100) % ABG Base Excess (-2-2) mmol/L FiO2 Sodium (137-145) mmol/L Potassium (3.4-5.1) mmol/L Chloride (98-107) mmol/L Carbon Dioxide (22-32) mmol/L BUN (9-20) mg/dL Creatinine (0.66-1.25) mg/dL Estimated GFR (>60) mL/min BUN/Creatinine Ratio (6-22) Glucose (80-110) mg/dL Lactate 0.9 (0.7-2.1) mmol/L Calcium (8.4-10.2) mg/dL Total Bilirubin (0.2-1.3) mg/dL AST (17-59) IU/L ALT (<50) IU/L Alkaline Phosphatase (38-126) U/L C-Reactive Protein 18.4 H (<1.0) mg/dL Total Protein (6.3-8.2) g/dL Albumin (3.5-5.0) g/dL Globulin (1.7-4.1) g/dL Albumin/Globulin Ratio (1.0-2.8) Procalcitonin (<0.5) ng/mL Random Vancomycin (10-40) ug/mL SARS-CoV-2 (PCR) (Negative) 03/10/22 03/10/22 03/10/22 Range/Units 08:15 08:15 12:26 WBC 7.2 (4.5-11.0) X10^3/uL RBC 2.87 L (4.5-5.9) X10^6/uL Hgb 9.2 L (13.5-17.5) g/dL Hct 27.5 L (41-53) % MCV 95.6 (80-100) fL MCH 31.9 (26-34) PG MCHC 33.3 (30-36) % RDW 16.4 H (11.6-14.8) % Plt Count 130 L (150-400) X10^3/uL Neut % (Auto) 79.9 H (50-75) % Lymph % (Auto) 2.3 L (25-40) % Leake % (Auto) 6.3 (3-14) % Eos % (Auto) 11.3 H (2-4) % Baso % (Auto) 0.2 (0-2) % Neut # (Auto) 5800 (9228-1688) /uL Lymph # (Auto) 200 L (1310-4762) /uL Leake # (Auto) 500 (0-900) /uL Eos # (Auto) 800 H (0-450) /uL Baso # (Auto) 0 (0-100) /uL ESR (0-15) MM/HR ABG pH 7.44 (7.35-7.45) ABG pCO2 38.3 (35-45) mmHg ABG pO2 77 L (80-100) mmHg ABG HCO3 26 (22-26) mmol/L ABG Total CO2 27 (21-31) mmol/L ABG O2 Saturation 96 (95-100) % ABG Base Excess 2.0 (-2-2) mmol/L FiO2 40 Sodium 138 (137-145) mmol/L Potassium 4.6 (3.4-5.1) mmol/L Chloride 98 (98-107) mmol/L Carbon Dioxide 22 (22-32) mmol/L BUN 65 H (9-20) mg/dL Creatinine 8.39 H* (0.66-1.25) mg/dL Estimated GFR 6 L (>60) mL/min BUN/Creatinine Ratio 7.7 (6-22) Glucose 138 H (80-110) mg/dL Lactate (0.7-2.1) mmol/L Calcium 8.7 (8.4-10.2) mg/dL Total Bilirubin 0.8 (0.2-1.3) mg/dL AST 18 (17-59) IU/L ALT 17 (<50) IU/L Alkaline Phosphatase 64 (38-126) U/L C-Reactive Protein (<1.0) mg/dL Total Protein 7.1 (6.3-8.2) g/dL Albumin 3.9 (3.5-5.0) g/dL Globulin 3.2 (1.7-4.1) g/dL Albumin/Globulin Ratio 1.2 (1.0-2.8) Procalcitonin (<0.5) ng/mL Random Vancomycin (10-40) ug/mL SARS-CoV-2 (PCR) (Negative) 03/11/22 03/11/22 03/11/22 Range/Units 07:40 07:40 07:40 WBC 6.1 (4.5-11.0) X10^3/uL RBC 2.72 L (4.5-5.9) X10^6/uL Hgb 8.7 L (13.5-17.5) g/dL Hct 25.9 L (41-53) % MCV 95.4 (80-100) fL MCH 31.9 (26-34) PG MCHC 33.4 (30-36) % RDW 16.0 H (11.6-14.8) % Plt Count 150 (150-400) X10^3/uL Neut % (Auto) 73.8 (50-75) % Lymph % (Auto) 4.5 L (25-40) % Leake % (Auto) 6.5 (3-14) % Eos % (Auto) 14.9 H (2-4) % Baso % (Auto) 0.3 (0-2) % Neut # (Auto) 4500 (6965-2037) /uL Lymph # (Auto) 300 L (9847-8878) /uL Leake # (Auto) 400 (0-900) /uL Eos # (Auto) 900 H (0-450) /uL Baso # (Auto) 0 (0-100) /uL ESR (0-15) MM/HR ABG pH (7.35-7.45) ABG pCO2 (35-45) mmHg ABG pO2 (80-100) mmHg ABG HCO3 (22-26) mmol/L ABG Total CO2 (21-31) mmol/L ABG O2 Saturation (95-100) % ABG Base Excess (-2-2) mmol/L FiO2 Sodium 138 (137-145) mmol/L Potassium 4.6 (3.4-5.1) mmol/L Chloride 99 (98-107) mmol/L Carbon Dioxide 24 (22-32) mmol/L BUN 77 H (9-20) mg/dL Creatinine 8.25 H* (0.66-1.25) mg/dL Estimated GFR 6 L (>60) mL/min BUN/Creatinine Ratio 9.3 (6-22) Glucose 117 H (80-110) mg/dL Lactate (0.7-2.1) mmol/L Calcium 8.6 (8.4-10.2) mg/dL Total Bilirubin 0.7 (0.2-1.3) mg/dL AST 22 (17-59) IU/L ALT 19 (<50) IU/L Alkaline Phosphatase 73 (38-126) U/L C-Reactive Protein (<1.0) mg/dL Total Protein 6.8 (6.3-8.2) g/dL Albumin 3.7 (3.5-5.0) g/dL Globulin 3.1 (1.7-4.1) g/dL Albumin/Globulin Ratio 1.2 (1.0-2.8) Procalcitonin 0.62 H (<0.5) ng/mL Random Vancomycin (10-40) ug/mL SARS-CoV-2 (PCR) (Negative) 03/12/22 03/12/22 03/12/22 Range/Units 04:55 08:44 08:44 WBC 6.5 (4.5-11.0) X10^3/uL RBC 2.54 L (4.5-5.9) X10^6/uL Hgb 8.1 L (13.5-17.5) g/dL Hct 24.3 L (41-53) % MCV 95.5 (80-100) fL MCH 32.0 (26-34) PG MCHC 33.5 (30-36) % RDW 16.3 H (11.6-14.8) % Plt Count 152 (150-400) X10^3/uL Neut % (Auto) 82.0 H (50-75) % Lymph % (Auto) 5.7 L (25-40) % Leake % (Auto) 6.2 (3-14) % Eos % (Auto) 5.5 H (2-4) % Baso % (Auto) 0.6 (0-2) % Neut # (Auto) 5300 (7892-4667) /uL Lymph # (Auto) 400 L (5593-6251) /uL Leake # (Auto) 400 (0-900) /uL Eos # (Auto) 400 (0-450) /uL Baso # (Auto) 0 (0-100) /uL ESR (0-15) MM/HR ABG pH (7.35-7.45) ABG pCO2 (35-45) mmHg ABG pO2 (80-100) mmHg ABG HCO3 (22-26) mmol/L ABG Total CO2 (21-31) mmol/L ABG O2 Saturation (95-100) % ABG Base Excess (-2-2) mmol/L FiO2 Sodium 138 (137-145) mmol/L Potassium 4.6 (3.4-5.1) mmol/L Chloride 98 (98-107) mmol/L Carbon Dioxide 27 (22-32) mmol/L BUN 64 H (9-20) mg/dL Creatinine 7.34 H (0.66-1.25) mg/dL Estimated GFR 7 L (>60) mL/min BUN/Creatinine Ratio 8.7 (6-22) Glucose 166 H (80-110) mg/dL Lactate (0.7-2.1) mmol/L Calcium 8.5 (8.4-10.2) mg/dL Total Bilirubin 0.5 (0.2-1.3) mg/dL AST 23 (17-59) IU/L ALT 19 (<50) IU/L Alkaline Phosphatase 72 (38-126) U/L C-Reactive Protein (<1.0) mg/dL Total Protein 6.4 (6.3-8.2) g/dL Albumin 3.5 (3.5-5.0) g/dL Globulin 2.9 (1.7-4.1) g/dL Albumin/Globulin Ratio 1.2 (1.0-2.8) Procalcitonin 0.90 H (<0.5) ng/mL Random Vancomycin 11.0 (10-40) ug/mL SARS-CoV-2 (PCR) (Negative) 03/13/22 03/13/22 03/14/22 Range/Units 10:38 10:38 10:22 WBC 7.9 (4.5-11.0) X10^3/uL RBC 2.63 L (4.5-5.9) X10^6/uL Hgb 8.4 L (13.5-17.5) g/dL Hct 25.5 L (41-53) % MCV 97.1 (80-100) fL MCH 32.0 (26-34) PG MCHC 33.0 (30-36) % RDW 16.9 H (11.6-14.8) % Plt Count 153 (150-400) X10^3/uL Neut % (Auto) 78.9 H (50-75) % Lymph % (Auto) 5.5 L (25-40) % Leake % (Auto) 4.0 (3-14) % Eos % (Auto) 11.2 H (2-4) % Baso % (Auto) 0.4 (0-2) % Neut # (Auto) 6200 (7743-5519) /uL Lymph # (Auto) 400 L (6885-5134) /uL Leake # (Auto) 300 (0-900) /uL Eos # (Auto) 900 H (0-450) /uL Baso # (Auto) 0 (0-100) /uL ESR (0-15) MM/HR ABG pH (7.35-7.45) ABG pCO2 (35-45) mmHg ABG pO2 (80-100) mmHg ABG HCO3 (22-26) mmol/L ABG Total CO2 (21-31) mmol/L ABG O2 Saturation (95-100) % ABG Base Excess (-2-2) mmol/L FiO2 Sodium 140 (137-145) mmol/L Potassium 4.5 (3.4-5.1) mmol/L Chloride 101 (98-107) mmol/L Carbon Dioxide 21 L (22-32) mmol/L BUN 71 H (9-20) mg/dL Creatinine 8.34 H* (0.66-1.25) mg/dL Estimated GFR 6 L (>60) mL/min BUN/Creatinine Ratio 8.5 (6-22) Glucose 139 H (80-110) mg/dL Lactate (0.7-2.1) mmol/L Calcium 8.3 L (8.4-10.2) mg/dL Total Bilirubin 0.4 (0.2-1.3) mg/dL AST 27 (17-59) IU/L ALT 21 (<50) IU/L Alkaline Phosphatase 94 (38-126) U/L C-Reactive Protein (<1.0) mg/dL Total Protein 6.6 (6.3-8.2) g/dL Albumin 3.6 (3.5-5.0) g/dL Globulin 3.0 (1.7-4.1) g/dL Albumin/Globulin Ratio 1.2 (1.0-2.8) Procalcitonin 0.98 H (<0.5) ng/mL Random Vancomycin 22.2 (10-40) ug/mL SARS-CoV-2 (PCR) (Negative) 03/14/22 03/14/22 Range/Units 10: 10: WBC 11.0 (4.5-11.0) X10^3/uL RBC 2.49 L (4.5-5.9) X10^6/uL Hgb 7.9 L (13.5-17.5) g/dL Hct 23.9 L (41-53) % MCV 96.0 (80-100) fL MCH 31.7 (26-34) PG MCHC 33.0 (30-36) % RDW 16.4 H (11.6-14.8) % Plt Count 165 (150-400) X10^3/uL Neut % (Auto) 81.2 H (50-75) % Lymph % (Auto) 3.3 L (25-40) % Leake % (Auto) 4.0 (3-14) % Eos % (Auto) 10.6 H (2-4) % Baso % (Auto) 0.9 (0-2) % Neut # (Auto) 9000 H (7943-7827) /uL Lymph # (Auto) 400 L (5934-0556) /uL Leake # (Auto) 400 (0-900) /uL Eos # (Auto) 1200 H (0-450) /uL Baso # (Auto) 100 (0-100) /uL ESR (0-15) MM/HR ABG pH (7.35-7.45) ABG pCO2 (35-45) mmHg ABG pO2 (80-100) mmHg ABG HCO3 (22-26) mmol/L ABG Total CO2 (21-31) mmol/L ABG O2 Saturation (95-100) % ABG Base Excess (-2-2) mmol/L FiO2 Sodium 141 (137-145) mmol/L Potassium 4.8 (3.4-5.1) mmol/L Chloride 101 (98-107) mmol/L Carbon Dioxide 20 L (22-32) mmol/L BUN 79 H (9-20) mg/dL Creatinine 8.61 H* (0.66-1.25) mg/dL Estimated GFR 6 L (>60) mL/min BUN/Creatinine Ratio 9.2 (6-22) Glucose 208 H (80-110) mg/dL Lactate (0.7-2.1) mmol/L Calcium 8.2 L (8.4-10.2) mg/dL Total Bilirubin 0.4 (0.2-1.3) mg/dL AST 24 (17-59) IU/L ALT 23 (<50) IU/L Alkaline Phosphatase 106 (38-126) U/L C-Reactive Protein (<1.0) mg/dL Total Protein 6.5 (6.3-8.2) g/dL Albumin 3.5 (3.5-5.0) g/dL Globulin 3.0 (1.7-4.1) g/dL Albumin/Globulin Ratio 1.2 (1.0-2.8) Procalcitonin 0.81 H (<0.5) ng/mL Random Vancomycin (10-40) ug/mL SARS-CoV-2 (PCR) (Negative) Point of Care Testing Glucose POC 115 MDM Narrative Medical decision making narrative: This is a 72-year-old male with history of type 2 diabetes, is not anticoagulated, has CKD and is a Monday, , and Monday dialysis patient, he denies other significant medical conditions and presents to the emergency department with wound on his right hand 5th digit the distal tip which occurred one week ago. Patient states it started as a pus-filled blister on distal fingertips and it has progressed in to a wound covering the distal 1/3 of his 5th digit, it is edematous with erythema, weeping clear fluid, and he has lymphangitis tracking up his forearm without ability to extend his 5th digit and concern for extensor tenosynovitis. Patient was sent to the emergency department by Dr. Pierre from the walk-in clinic at [facility]. He has a right upper arm fistula which is what is currently used for his dialysis, he also has the left upper arm fistula which has not been used in at least one year. A peripheral IV was placed in his lower forearm on the left. Wound culture was obtained prior to antibiotics. X-ray of his right hand and forearm are negative for osseous erosion, fracture, dislocation, it does show right hand soft tissue swelling on the dorsum. Consultation with Orthopedics at [facility] with Dr. Aldridge for surgical debridement and admission for tenosynovitis with dialysis. Photos of patient's wounds were shared with the physician, he agrees that this is tenosynovitis and patient needs surgical washout and debridement emergently. There are no beds available at [facility], there are no beds available. Consultation with Dr. Kristina Harris about possible OR washout and debridement with boarding in the emergency department after OR to find a bed at another hospital with dialysis capabilities. She agrees to come and evaluate the patient, and of consultation was placed. Patient was given doxycycline initially in the emergency department when there was no IV access and concern for bilateral upper arm fistulas. IV access was later obtained, and lab work was obtained. Patient is not having leukocytosis although he does have mild anemia without any prior lab work to compare to, hemoglobin of 8.9, hematocrit of 26.3, platelet count of 127, no significant electrolyte abnormalities, sodium 140, potassium of 4.5, creatinine of 7.8 or with a BUN of 58, GFR of seven, la ctate of 0.9, CRP is elevated at 18.4 and procalcitonin is elevated at 0.7, COVID PCR is negative, no elevation to his liver enzymes. Wound culture is pending, patient was given IV ceftriaxone, Flagyl, and vancomycin order for pharmacy to dose was placed. Dr. Kristina Harris arrived to the bedside to consent the patient for the operating room. 03/10/22 Dr Zabala 1;45 am Patient is doing well postop. Pain is controlled A.m. labs and antibiotics are ordered Will begin calling for bed placement again early this morning. 03/10/22 Miriam 8am Patient is a 72-year-old male seen evaluated by myself. Postop for flexor tenosynovitis the right pinky. Patient states that the streaking and redness h as gone down significantly. Hand is in bandage. He is currently shaking and quite chilled but is afebrile. Surgery note reports multiple areas fluid collection which have now been debrided and drained. Patient is supposed to have dialysis today. Director Transportation is . He is actually to be 84% on room air. He has absolutely no respiratory distress speaking full sentences but there is a good wave on the monitor. He is put on 4 L of oxygen. Chest x-ray is ordered. GENERAL: Awake alert 72-year-old male sitting at edge of bed eating breakfast HEENT: Head atraumatic,EOMI, pupils reactive, face symmetric, moist mucous membranes CARDIOVASCULAR: Regular rate and rhythm without murmurs, rubs or gallops. RESPIRATORY: No respiratory distress breath sounds equal no crackles rales or rhonchi EXTREMITIES: Normal range of motion, no clubbing or edema. Neurovascularly intact NEUROLOGICAL: Alert and oriented x4. SKIN: Right hand is in bandage. No streaking above the bandage. No erythema 1. Flexor tenosynovitis: Postop day 1. Continue antibiotics. May need further washout ortho recommendations. Also fracture of right 5th DIP 2. Chronic kidney disease, dialysis Monday need dialysis today, no bed available at any facility continue working on transfer 3. New onset hypoxia check chest x-ray continue to monitor his probably fluid overload from surgery and antibiotics, need dialysis today Multiple hospitals have been called the entire state is on critical bed shortage. CC states that there are at least 7 other dialysis patients or in more critical condition then are patient with are no dialysis beds. Encouraged us to look other ways for him to get dialysis including his outpatient center. Patient goes to [facility]. Patient is able to get dialysis today but must be there before 3:20pm they close they are not able to extend there hours. I have spoken with Dr. Chavira, who states he is happy to help. He can even give a dose of IV vancomycin with dialysis. He states that patient is chronically hypoxic. He is satting in the 80%. Dr. Chavira request ABG, He has been this way for a very long time. Not sure why. After further discussion with patient he says that he has a home concentrator at home but he does not feel like he needs oxygen so he never uses it. Currently on 4-6 L Significant efforts have been made to arrange for outpatient dialysis. Discussion with hospital staff and administration, who agree that patient does need dialysis and may be discharged to dialysis and returned to the emergency department after dialysis. Unfortunately not able to arrange transport in time before the dialysis center closes. However arrangements have been made for tomorrow. Patient can go to dialysis at 3:00 p.m. to 6:00 p.m. and ambulance has already been set up. 1720 Dr. Noe orthopedics at [facility] has been consulted. Pictures have been sent with patient consent. Hand was wrapped slightly at the time all recommends a DIP amputation at bedside in the ED. 8pm [facility] has NO BEDS available tonight. suggested calling tomorrow Will continue with contingency plan of EMS transfer to and from outpatient dialysis tomorrow while awaiting inpatient bed availability 03/11/22 Miriam 9am Patient remains waiting in the emergency department with IV antibiotics. He remains on 5 L nasal cannula without any respiratory symptoms. He has a plan to go to dialysis today. Culture grew staph. Patient is sleeping he really has no complaints. He is offered pain medication but declines at this time. GENERAL: Alert currently cooperative 72-year-old male HEENT: Head atraumatic,EOMI, pupils reactive, face symmetric, moist mucous membranes CARDIOVASCULAR: Regular rate and rhythm without murmurs, rubs or gallops. RESPIRATORY: Breath sounds equal bilaterally, no wheezes rales or rhonchi. EXTREMITIES: Normal range of motion, no clubbing or edema. Neurovascularly intact NEUROLOGICAL: Alert and oriented x4. SKIN: Right hand tip of finger is actually less necrotic looking today. It is not tender to touch. Dressing remains mostly in place. A/P 1. Flexor tenosynovitis postop day number 2. Continue antibiotics ortho recommendations culture grew Staph aureus stop Flagyl continue vancomycin with dialysis and Rocephin. Orthopedics recommend antibiotics for 1 week. Possible re-washed out next 24 hours with pin for fracture Dr. Harris repeorts if still here on 03/12/22 will go back to OR here at [facility], then possible dc with IV vancomycin with dialysis. NPO after midnight 2. Chronic kidney disease-dialysis today. Possibilities include outpatient arranged at [facility] ED a more he normally goes with return to emergency department versus transfer to [facility]. Patient also remains on multiple hospital list but due to critical bed shortage outpatient dialysis seems to be current and best option 3. Hypoxia. Patient remains on 4-5 L oxygen. Patient is not tachypneic he denies any shortness of breath, according to dialysis center he is always hypoxic 80%. Patient states that he has got oxygen concentrator at home he only uses 2 L if needed. he received Lasix yesterday. He did seem to urinate and respond. On Lasix daily anyway. Possible fluid overload from recent operation and multiple IV antibiotics. Patient continues to be hypoxic he had a CT angio today seeing is of is going to dialysis. CT angio showed pleural effusions. And no pulmonary embolism. Despite efforts from yesterday to set up transportation to and from dialysis. Unfortunately transportation was an hour and half. Patient successfully did go to dialysis for about 2 hours and he returned at baseline. signed out to Dr. Zabala 03/12 4am Bed was not availalbe at [facility] due to nephrology provider capacity tonight. Physical bed is being held. Request to call again after 9am to try and facilitate transfer <Bel Pineda DO - Last Filed: 03/14/22 17:42> Lab Data Labs: Lab Results 03/09/22 03/09/22 03/09/22 Range/Units 14:13 16:29 16:29 WBC 7.3 (4.5-11.0) X10^3/uL RBC 2.77 L (4.5-5.9) X10^6/uL Hgb 8.9 L (13.5-17.5) g/dL Hct 26.3 L (41-53) % MCV 95.0 (80-100) fL MCH 32.1 (26-34) PG MCHC 33.8 (30-36) % RDW 16.6 H (11.6-14.8) % Plt Count 127 L (150-400) X10^3/uL Neut % (Auto) 78.1 H (50-75) % Lymph % (Auto) 7.2 L (25-40) % Leake % (Auto) 3.7 (3-14) % Eos % (Auto) 10.7 H (2-4) % Baso % (Auto) 0.3 (0-2) % Neut # (Auto) 5700 (3939-1248) /uL Lymph # (Auto) 500 L (4932-6359) /uL Leake # (Auto) 300 (0-900) /uL Eos # (Auto) 800 H (0-450) /uL Baso # (Auto) 0 (0-100) /uL ESR (0-15) MM/HR ABG pH (7.35-7.45) ABG pCO2 (35-45) mmHg ABG pO2 (80-100) mmHg ABG HCO3 (22-26) mmol/L ABG Total CO2 (21-31) mmol/L ABG O2 Saturation (95-100) % ABG Base Excess (-2-2) mmol/L FiO2 Sodium 140 (137-145) mmol/L Potassium 4.5 (3.4-5.1) mmol/L Chloride 97 L (98-107) mmol/L Carbon Dioxide 29 (22-32) mmol/L BUN 58 H (9-20) mg/dL Creatinine 7.84 H* (0.66-1.25) mg/dL Estimated GFR 7 L (>60) mL/min BUN/Creatinine Ratio 7.4 (6-22) Glucose 141 H (80-110) mg/dL Lactate (0.7-2.1) mmol/L Calcium 8.6 (8.4-10.2) mg/dL Total Bilirubin 0.7 (0.2-1.3) mg/dL AST 21 (17-59) IU/L ALT 17 (<50) IU/L Alkaline Phosphatase 72 (38-126) U/L C-Reactive Protein (<1.0) mg/dL Total Protein 6.5 (6.3-8.2) g/dL Albumin 3.7 (3.5-5.0) g/dL Globulin 2.8 (1.7-4.1) g/dL Albumin/Globulin Ratio 1.3 (1.0-2.8) Procalcitonin 0.70 H (<0.5) ng/mL Random Vancomycin (10-40) ug/mL SARS-CoV-2 (PCR) Negative (Negative) 03/09/22 03/09/22 03/09/22 Range/Units 16:29 16:29 16:29 WBC (4.5-11.0) X10^3/uL RBC (4.5-5.9) X10^6/uL Hgb (13.5-17.5) g/dL Hct (41-53) % MCV (80-100) fL MCH (26-34) PG MCHC (30-36) % RDW (11.6-14.8) % Plt Count (150-400) X10^3/uL Neut % (Auto) (50-75) % Lymph % (Auto) (25-40) % Leake % (Auto) (3-14) % Eos % (Auto) (2-4) % Baso % (Auto) (0-2) % Neut # (Auto) (7369-2407) /uL Lymph # (Auto) (4352-7297) /uL Leake # (Auto) (0-900) /uL Eos # (Auto) (0-450) /uL Baso # (Auto) (0-100) /uL ESR 88 H (0-15) MM/HR ABG pH (7.35-7.45) ABG pCO2 (35-45) mmHg ABG pO2 (80-100) mmHg ABG HCO3 (22-26) mmol/L ABG Total CO2 (21-31) mmol/L ABG O2 Saturation (95-100) % ABG Base Excess (-2-2) mmol/L FiO2 Sodium (137-145) mmol/L Potassium (3.4-5.1) mmol/L Chloride (98-107) mmol/L Carbon Dioxide (22-32) mmol/L BUN (9-20) mg/dL Creatinine (0.66-1.25) mg/dL Estimated GFR (>60) mL/min BUN/Creatinine Ratio (6-22) Glucose (80-110) mg/dL Lactate 0.9 (0.7-2.1) mmol/L Calcium (8.4-10.2) mg/dL Total Bilirubin (0.2-1.3) mg/dL AST (17-59) IU/L ALT (<50) IU/L Alkaline Phosphatase (38-126) U/L C-Reactive Protein 18.4 H (<1.0) mg/dL Total Protein (6.3-8.2) g/dL Albumin (3.5-5.0) g/dL Globulin (1.7-4.1) g/dL Albumin/Globulin Ratio (1.0-2.8) Procalcitonin (<0.5) ng/mL Random Vancomycin (10-40) ug/mL SARS-CoV-2 (PCR) (Negative) 03/10/22 03/10/2222 Range/Units 08:15 08:15 12:26 WBC 7.2 (4.5-11.0) X10^3/uL RBC 2.87 L (4.5-5.9) X10^6/uL Hgb 9.2 L (13.5-17.5) g/dL Hct 27.5 L (41-53) % MCV 95.6 (80-100) fL MCH 31.9 (26-34) PG MCHC 33.3 (30-36) % RDW 16.4 H (11.6-14.8) % Plt Count 130 L (150-400) X10^3/uL Neut % (Auto) 79.9 H (50-75) % Lymph % (Auto) 2.3 L (25-40) % Leake % (Auto) 6.3 (3-14) % Eos % (Auto) 11.3 H (2-4) % Baso % (Auto) 0.2 (0-2) % Neut # (Auto) 5800 (3410-9591) /uL Lymph # (Auto) 200 L (0181-6221) /uL Leake # (Auto) 500 (0-900) /uL Eos # (Auto) 800 H (0-450) /uL Baso # (Auto) 0 (0-100) /uL ESR (0-15) MM/HR ABG pH 7.44 (7.35-7.45) ABG pCO2 38.3 (35-45) mmHg ABG pO2 77 L (80-100) mmHg ABG HCO3 26 (22-26) mmol/L ABG Total CO2 27 (21-31) mmol/L ABG O2 Saturation 96 (95-100) % ABG Base Excess 2.0 (-2-2) mmol/L FiO2 40 Sodium 138 (137-145) mmol/L Potassium 4.6 (3.4-5.1) mmol/L Chloride 98 (98-107) mmol/L Carbon Dioxide 22 (22-32) mmol/L BUN 65 H (9-20) mg/dL Creatinine 8.39 H* (0.66-1.25) mg/dL Estimated GFR 6 L (>60) mL/min BUN/Creatinine Ratio 7.7 (6-22) Glucose 138 H (80-110) mg/dL Lactate (0.7-2.1) mmol/L Calcium 8.7 (8.4-10.2) mg/dL Total Bilirubin 0.8 (0.2-1.3) mg/dL AST 18 (17-59) IU/L ALT 17 (<50) IU/L Alkaline Phosphatase 64 (38-126) U/L C-Reactive Protein (<1.0) mg/dL Total Protein 7.1 (6.3-8.2) g/dL Albumin 3.9 (3.5-5.0) g/dL Globulin 3.2 (1.7-4.1) g/dL Albumin/Globulin Ratio 1.2 (1.0-2.8) Procalcitonin (<0.5) ng/mL Random Vancomycin (10-40) ug/mL SARS-CoV-2 (PCR) (Negative) 03/11/22 03/11/22 03/11/22 Range/Units 07:40 07:40 07:40 WBC 6.1 (4.5-11.0) X10^3/uL RBC 2.72 L (4.5-5.9) X10^6/uL Hgb 8.7 L (13.5-17.5) g/dL Hct 25.9 L (41-53) % MCV 95.4 (80-100) fL MCH 31.9 (26-34) PG MCHC 33.4 (30-36) % RDW 16.0 H (11.6-14.8) % Plt Count 150 (150-400) X10^3/uL Neut % (Auto) 73.8 (50-75) % Lymph % (Auto) 4.5 L (25-40) % Leake % (Auto) 6.5 (3-14) % Eos % (Auto) 14.9 H (2-4) % Baso % (Auto) 0.3 (0-2) % Neut # (Auto) 4500 (2063-7770) /uL Lymph # (Auto) 300 L (0435-5751) /uL Leake # (Auto) 400 (0-900) /uL Eos # (Auto) 900 H (0-450) /uL Baso # (Auto) 0 (0-100) /uL ESR (0-15) MM/HR ABG pH (7.35-7.45) ABG pCO2 (35-45) mmHg ABG pO2 (80-100) mmHg ABG HCO3 (22-26) mmol/L ABG Total CO2 (21-31) mmol/L ABG O2 Saturation (95-100) % ABG Base Excess (-2-2) mmol/L FiO2 Sodium 138 (137-145) mmol/L Potassium 4.6 (3.4-5.1) mmol/L Chloride 99 (98-107) mmol/L Carbon Dioxide 24 (22-32) mmol/L BUN 77 H (9-20) mg/dL Creatinine 8.25 H* (0.66-1.25) mg/dL Estimated GFR 6 L (>60) mL/min BUN/Creatinine Ratio 9.3 (6-22) Glucose 117 H (80-110) mg/dL Lactate (0.7-2.1) mmol/L Calcium 8.6 (8.4-10.2) mg/dL Total Bilirubin 0.7 (0.2-1.3) mg/dL AST 22 (17-59) IU/L ALT 19 (<50) IU/L Alkaline Phosphatase 73 (38-126) U/L C-Reactive Protein (<1.0) mg/dL Total Protein 6.8 (6.3-8.2) g/dL Albumin 3.7 (3.5-5.0) g/dL Globulin 3.1 (1.7-4.1) g/dL Albumin/Globulin Ratio 1.2 (1.0-2.8) Procalcitonin 0.62 H (<0.5) ng/mL Random Vancomycin (10-40) ug/mL SARS-CoV-2 (PCR) (Negative) 03/12/22 03/12/22 03/12/22 Range/Units 04:55 08:44 08:44 WBC 6.5 (4.5-11.0) X10^3/uL RBC 2.54 L (4.5-5.9) X10^6/uL Hgb 8.1 L (13.5-17.5) g/dL Hct 24.3 L (41-53) % MCV 95.5 (80-100) fL MCH 32.0 (26-34) PG MCHC 33.5 (30-36) % RDW 16.3 H (11.6-14.8) % Plt Count 152 (150-400) X10^3/uL Neut % (Auto) 82.0 H (50-75) % Lymph % (Auto) 5.7 L (25-40) % Leake % (Auto) 6.2 (3-14) % Eos % (Auto) 5.5 H (2-4) % Baso % (Auto) 0.6 (0-2) % Neut # (Auto) 5300 (6449-5446) /uL Lymph # (Auto) 400 L (6379-1695) /uL Leake # (Auto) 400 (0-900) /uL Eos # (Auto) 400 (0-450) /uL Baso # (Auto) 0 (0-100) /uL ESR (0-15) MM/HR ABG pH (7.35-7.45) ABG pCO2 (35-45) mmHg ABG pO2 (80-100) mmHg ABG HCO3 (22-26) mmol/L ABG Total CO2 (21-31) mmol/L ABG O2 Saturation (95-100) % ABG Base Excess (-2-2) mmol/L FiO2 Sodium 138 (137-145) mmol/L Potassium 4.6 (3.4-5.1) mmol/L Chloride 98 (98-107) mmol/L Carbon Dioxide 27 (22-32) mmol/L BUN 64 H (9-20) mg/dL Creatinine 7.34 H (0.66-1.25) mg/dL Estimated GFR 7 L (>60) mL/min BUN/Creatinine Ratio 8.7 (6-22) Glucose 166 H (80-110) mg/dL Lactate (0.7-2.1) mmol/L Calcium 8.5 (8.4-10.2) mg/dL Total Bilirubin 0.5 (0.2-1.3) mg/dL AST 23 (17-59) IU/L ALT 19 (<50) IU/L Alkaline Phosphatase 72 (38-126) U/L C-Reactive Protein (<1.0) mg/dL Total Protein 6.4 (6.3-8.2) g/dL Albumin 3.5 (3.5-5.0) g/dL Globulin 2.9 (1.7-4.1) g/dL Albumin/Globulin Ratio 1.2 (1.0-2.8) Procalcitonin 0.90 H (<0.5) ng/mL Random Vancomycin 11.0 (10-40) ug/mL SARS-CoV-2 (PCR) (Negative) 03/13/22 03/13/22 03/14/22 Range/Units 10:38 10:38 10:22 WBC 7.9 (4.5-11.0) X10^3/uL RBC 2.63 L (4.5-5.9) X10^6/uL Hgb 8.4 L (13.5-17.5) g/dL Hct 25.5 L (41-53) % MCV 97.1 (80-100) fL MCH 32.0 (26-34) PG MCHC 33.0 (30-36) % RDW 16.9 H (11.6-14.8) % Plt Count 153 (150-400) X10^3/uL Neut % (Auto) 78.9 H (50-75) % Lymph % (Auto) 5.5 L (25-40) % Leake % (Auto) 4.0 (3-14) % Eos % (Auto) 11.2 H (2-4) % Baso % (Auto) 0.4 (0-2) % Neut # (Auto) 6200 (2381-5196) /uL Lymph # (Auto) 400 L (3411-1677) /uL Leake # (Auto) 300 (0-900) /uL Eos # (Auto) 900 H (0-450) /uL Baso # (Auto) 0 (0-100) /uL ESR (0-15) MM/HR ABG pH (7.35-7.45) ABG pCO2 (35-45) mmHg ABG pO2 (80-100) mmHg ABG HCO3 (22-26) mmol/L ABG Total CO2 (21-31) mmol/L ABG O2 Saturation (95-100) % ABG Base Excess (-2-2) mmol/L FiO2 Sodium 140 (137-145) mmol/L Potassium 4.5 (3.4-5.1) mmol/L Chloride 101 (98-107) mmol/L Carbon Dioxide 21 L (22-32) mmol/L BUN 71 H (9-20) mg/dL Creatinine 8.34 H* (0.66-1.25) mg/dL Estimated GFR 6 L (>60) mL/min BUN/Creatinine Ratio 8.5 (6-22) Glucose 139 H (80-110) mg/dL Lactate (0.7-2.1) mmol/L Calcium 8.3 L (8.4-10.2) mg/dL Total Bilirubin 0.4 (0.2-1.3) mg/dL AST 27 (17-59) IU/L ALT 21 (<50) IU/L Alkaline Phosphatase 94 (38-126) U/L C-Reactive Protein (<1.0) mg/dL Total Protein 6.6 (6.3-8.2) g/dL Albumin 3.6 (3.5-5.0) g/dL Globulin 3.0 (1.7-4.1) g/dL Albumin/Globulin Ratio 1.2 (1.0-2.8) Procalcitonin 0.98 H (<0.5) ng/mL Random Vancomycin 22.2 (10-40) ug/mL SARS-CoV-2 (PCR) (Negative) 03/14/22 03/14/22 Range/Units 10:22 10:22 WBC 11.0 (4.5-11.0) X10^3/uL RBC 2.49 L (4.5-5.9) X10^6/uL Hgb 7.9 L (13.5-17.5) g/dL Hct 23.9 L (41-53) % MCV 96.0 (80-100) fL MCH 31.7 (26-34) PG MCHC 33.0 (30-36) % RDW 16.4 H (11.6-14.8) % Plt Count 165 (150-400) X10^3/uL Neut % (Auto) 81.2 H (50-75) % Lymph % (Auto) 3.3 L (25-40) % Leake % (Auto) 4.0 (3-14) % Eos % (Auto) 10.6 H (2-4) % Baso % (Auto) 0.9 (0-2) % Neut # (Auto) 9000 H (9724-5570) /uL Lymph # (Auto) 400 L (1401-3667) /uL Leake # (Auto) 400 (0-900) /uL Eos # (Auto) 1200 H (0-450) /uL Baso # (Auto) 100 (0-100) /uL ESR (0-15) MM/HR ABG pH (7.35-7.45) ABG pCO2 (35-45) mmHg ABG pO2 (80-100) mmHg ABG HCO3 (22-26) mmol/L ABG Total CO2 (21-31) mmol/L ABG O2 Saturation (95-100) % ABG Base Excess (-2-2) mmol/L FiO2 Sodium 141 (137-145) mmol/L Potassium 4.8 (3.4-5.1) mmol/L Chloride 101 (98-107) mmol/L Carbon Dioxide 20 L (22-32) mmol/L BUN 79 H (9-20) mg/dL Creatinine 8.61 H* (0.66-1.25) mg/dL Estimated GFR 6 L (>60) mL/min BUN/Creatinine Ratio 9.2 (6-22) Glucose 208 H (80-110) mg/dL Lactate (0.7-2.1) mmol/L Calcium 8.2 L (8.4-10.2) mg/dL Total Bilirubin 0.4 (0.2-1.3) mg/dL AST 24 (17-59) IU/L ALT 23 (<50) IU/L Alkaline Phosphatase 106 (38-126) U/L C-Reactive Protein (<1.0) mg/dL Total Protein 6.5 (6.3-8.2) g/dL Albumin 3.5 (3.5-5.0) g/dL Globulin 3.0 (1.7-4.1) g/dL Albumin/Globulin Ratio 1.2 (1.0-2.8) Procalcitonin 0.81 H (<0.5) ng/mL Random Vancomycin (10-40) ug/mL SARS-CoV-2 (PCR) (Negative) Point of Care Testing Glucose POC 115 Imaging Data Chest x-ray: Radiologist's Impression: XRay Report Signed Patient: Norris Baumann Jr MR#: [id number] : 1950 Acct:[id number] Age/Sex: 72 / M Date of Service: 03/10/22 Loc: ED Accession Number: [id number] ?? Procedure: XR chest 1V Ordering Provider: Bel Pineda D.O. PROCEDURE:? XR CHEST 1V ? INDICATIONS:? short of breath ? TECHNIQUE:? One view of the chest was acquired.? ? COMPARISON:? [facility], CR, XR CHEST 1 VIEW, 03/04/2021, 17:11.? [facility], CT, CT CHEST WITHOUT CONTRAST, 03/10/2021, 6:55. ? FINDINGS:? ? Surgical changes and devices:? Right IJ dual lumen central venous catheter with the tip projecting at the lower 3rd of the SVC, new. ? Lungs and pleura:? Mild opacity in the left mid lung field.? Mildly prominent pulmonary markings.? Blunting of the left costophrenic angle.? No pneumothorax.? ? Mediastinum:? Mediastinal contours appear normal.? Heart size appears prominent.? ? Bones and chest wall:? No suspicious bony lesions.? Overlying soft tissues appear unremarkable.? ? IMPRESSION:? Right IJ central venous catheter with the tip projecting at the lower 3rd of the SVC. ? Suspect pulmonary vasculature engorgement and right pleural effusion. ? Opacity in the left mid lung field.? This could represent atelectasis, pleural fluid at the fissure, or pneumonia.? ? Dictated by: Javi Ybarra M.D. on 03/10/2022 at 9:01 ? ? Approved by: Javi Ybarra M.D. on 03/10/2022 at 9:04 ? CT scan - chest: Radiologist's Impression: CT Scan Report Signed Patient: Norris Baumann Jr MR#: [id number] : 1950 Acct:[id number] Age/Sex: 72 / M Date of Service: 03/11/22 Loc: ED Accession Number: [id number] ?? Procedure: CT angio chest PE protocol Ordering Provider: Bel Pineda D.O. PROCEDURE:? CT ANGIO CHEST PE PROTOCOL ? INDICATIONS:? hypoxic going to dialysis today ? TECHNIQUE:? After the administration of intravenous contrast, 2 mm thick sections acquired from the pulmonary apices to the posterior costophrenic angles.? 3-dimensional maximum intensity projection (MIP) coronal and sagittal reformats were then acquired through the thorax.? For radiation dose reduction, the following was used:? automated exposure control, adjustment of mA and/or kV according to patient size.? ? COMPARISON:? [facility], CT, CT CHEST WITHOUT CONTRAST, 03/10/2021, 6:55. ? FINDINGS:? Image quality:? Excellent.? ? Pulmonary arteries:? Pulmonary arteries are normal in size, and demonstrate no intraluminal filling defects to suggest central pulmonary embolism.? ? Lungs and pleura:? There is diffuse interlobular septal thickening throughout both lungs. ?Patchy pulmonary opacities are present within the bilateral mid lungs.? Geographic ground-glass opacities are present throughout the lungs.? There are small low- density pleural effusions bilaterally. ? Mediastinum:? The heart is enlarged.? No pericardial effusion.? There are multiple shotty mediastinal and hilar lymph nodes, some of which are pathologically enlarged.? Tunneled hemodialysis catheter is noted with the tip at the cavoatrial junction. ? Bones and chest wall:? No suspicious bony lesions.? Ribs and thoracic spine appear intact throughout.? Thyroid gland is unremarkable.? No axillary or supraclavicular adenopathy.? ? Abdomen:? Visualized upper abdominal solid organs appear normal in the early arterial phase of enhancement.? ? IMPRESSION:? ? 1. No acute pulmonary embolus. ? 2. Marked pulmonary edema and small pleural effusions consistent with fluid overload. ? 3. Diffuse patchy pulmonary opacities and hilar and mediastinal adenopathy suggesting multifocal pneumonia. ? Short interval follow-up is recommended to ensure resolution of the airspace opacities and adenopathy and exclude underlying pulmonary neoplasm.? ? ? Dictated by: Ivy Salinas M.D. on 03/11/2022 at 10:49? [facility] Narrative Medical decision making narrative: This is a 72-year-old male with history of type 2 diabetes, is not anticoagulated, has CKD and is a Monday, , and Monday dialysis patient, he denies other significant medical conditions and presents to the emergency department with wound on his right hand 5th digit the distal tip which occurred one week ago. Patient states it started as a pus-filled blister on distal fingertips and it has progressed in to a wound covering the distal 1/3 of his 5th digit, it is edematous with erythema, weeping clear fluid, and he has lymphangitis tracking up his forearm without ability to extend his 5th digit and concern for extensor tenosynovitis. Patient was sent to the emergency departm ent by Dr. Pierre from the walk-in clinic at [facility]. He has a right upper arm fistula which is what is currently used for his dialysis, he also has the left upper arm fistula which has not been used in at least one year. A peripheral IV was placed in his lower forearm on the left. Wound culture was obtained prior to antibiotics. X-ray of his right hand and forearm are negative for osseous erosion, fracture, dislocation, it does show right hand soft tissue swelling on the dorsum. Consultation with Orthopedics at [facility] with Dr. Aldridge for surgical debridement and admission for tenosynovitis with dialysis. Photos of patient's wounds were shared with the physician, he agrees that this is tenosynovitis and patient needs surgical washout and debridement emergently. There are no beds available at [facility], there are no beds available. Consultation with Dr. Kirstina Harris about possible OR washout and debridement with boarding in the emergency department after OR to find a bed at another hospital with dialysis capabilities. She agrees to come and evaluate the patient, and of consultation was placed. Patient was given doxycycline initially in the emergency department when there was no IV access and concern for bilateral upper arm fistulas. IV access was later obtained, and lab work was obtained. Patient is not having leukocytosis although he does have mild anemia without any prior lab work to compare to, hemoglobin of 8.9, hematocrit of 26.3, platelet count of 127, no significant electrolyte abnormalities, sodium 140, potassium of 4.5, creatinine of 7.8 or with a BUN of 58, GFR of seven, lactate of 0.9, CRP is elevated at 18.4 and procalcitonin is elevated at 0.7, COVID PCR is negative, no elevation to his liver enzymes. Wound culture is pending, patient was given IV ceftriaxone, Flagyl, and vancomycin order for pharmacy to dose was placed. Dr. Kristina Harris arrived to the bedside to consent the patient for the operating room. 03/10/22 Dr Zabala 1;45 am Patient is doing well postop. Pain is controlled A.m. labs and antibiotics are ordered Will begin calling for bed placement again early this morning. 03/10/22 Miriam 8am Patient is a 72-year-old male seen evaluated by myself. Postop for flexor tenosynovitis the right pinky. Patient states that the streaking and redness has gone down significantly. Hand is in bandage. He is currently shaking and quite chilled but is afebrile. Surgery note reports multiple areas fluid collection which have now been debrided and drained. Patient is supposed to have dialysis today. Director Transportation is . He is actually to be 84% on room air. He has absolutely no respiratory distress speaking full sentences but there is a good wave on the monitor. He is put on 4 L of oxygen. Chest x-ray is ordered. GENERAL: Awake alert 72-year-old male sitting at edge of bed eating breakfast HEENT: Head atraumatic,EOMI, pupils reactive, face symmetric, moist mucous membranes CARDIOVASCULAR: Regular rate and rhythm without murmurs, rubs or gallops. RESPIRATORY: No respiratory distress breath sounds equal no crackles rales or rhonchi EXTREMITIES: Normal range of motion, no clubbing or edema. Neurovascularly i ntact NEUROLOGICAL: Alert and oriented x4. SKIN: Right hand is in bandage. No streaking above the bandage. No erythema 1. Flexor tenosynovitis: Postop day 1. Continue antibiotics. May need further washout ortho recommendations. Also fracture of right 5th DIP 2. Chronic kidney disease, dialysis Monday need dialysis today, no bed available at any facility continue working on transfer 3. New onset hypoxia check chest x-ray continue to monitor his probably fluid overload from surgery and antibiotics, need dialysis today Multiple hospitals have been called the entire state is on critical bed shortage. CC states that there are at least 7 other dialysis patients or in more critical condition then are patient with are no dialysis beds. Encouraged us to look other ways for him to get dialysis including his outpatient center. Patient goes to [facility]. Patient is able to get dialysis today but must be there before 3:20pm they close they are not able to extend there hours. I have spoken with Dr. Chavira, who states he is happy to help. He can even give a dose of IV vancomycin with dialysis. He states that patient is chronically hypoxic. He is satting in the 80%. Dr. Chavira request ABG, He has been this way for a very long time. Not sure why. After further discussion with patient he says that he has a home concentrator at home but he does not feel like he needs oxygen so he never uses it. Currently on 4-6 L Significant efforts have been made to arrange for outpatient dialysis. Discussion with hospital staff and administration, who agree that patient does need dialysis and may be discharged to dialysis and returned to the emergency department after dialysis. Unfortunately not able to arrange transport in time before the dialysis center closes. However arrangements have been made for tomorrow. Patient can go to dialysis at 3:00 p.m. to 6:00 p.m. and ambulance has already been set up. 1720 Dr. Noe orthopedics at [facility] has been consulted. Pictures have been sent with patient consent. Hand was wrapped slightly at the time all recommends a DIP amputation at bedside in the ED. 8pm [facility] has NO BEDS available tonight. suggested calling tomorrow Will continue with contingency plan of EMS transfer to and from outpatient dialysis tomorrow while awaiting inpatient bed availability 03/11/22 Miriam 9am Patient remains waiting in the emergency department with IV antibiotics. He remains on 5 L nasal cannula without any respiratory symptoms. He has a plan to go to dialysis today. Culture grew staph. Patient is sleeping he really has no complaints. He is offered pain medication but declines at this time. GENERAL: Alert currently cooperative 72-year-old male HEENT: Head atraumatic,EOMI, pupils reactive, face symmetric, moist mucous membranes CARDIOVASCULAR: Regular rate and rhythm without murmurs, rubs or gallops. RESPIRATORY: Breath sounds equal bilaterally, no wheezes rales or rhonchi. EXTREMITIES: Normal range of motion, no clubbing or edema. Neurovascularly intact NEUROLOGICAL: Alert and oriented x4. SKIN: Right hand tip of finger is actually less necrotic looking today. It is not tender to touch. Dressing remains mostly in place. A/P 1. Flexor tenosynovitis postop day number 2. Continue antibiotics ortho recommendations culture grew Staph aureus stop Flagyl continue vancomycin with d ialysis and Rocephin. Orthopedics recommend antibiotics for 1 week. Possible re-washed out next 24 hours with pin for fracture Dr. Harris repeorts if still here on 03/12/22 will go back to OR here at [facility], then possible dc with IV vancomycin with dialysis. NPO after midnight 2. Chronic kidney disease-dialysis today. Possibilities include outpatient arranged at [facility] ED a more he normally goes with return to emergency department versus transfer to [facility]. Patient also remains on multiple hospital list but due to critical bed shortage outpatient dialysis seems to be current and best option 3. Hypoxia. Patient remains on 4-5 L oxygen. Patient is not tachypneic he denies any shortness of breath, according to dialysis center he is always hypoxic 80%. Patient states that he has got oxygen concentrator at home he only uses 2 L if needed. he received Lasix yesterday. He did seem to urinate and respond. On Lasix daily anyway. Possible fluid overload from recent operation and multiple IV antibiotics. Patient continues to be hypoxic he had a CT angio today seeing is of is going to dialysis. CT angio showed pleural effusions. And no pulmonary embolism. Despite efforts from yesterday to set up transportation to and from dialysis. Unfortunately transportation was an hour and half. Patient successfully did go to dialysis for about 2 hours and he returned at baseline. signed out to Dr. Zabala 03/12 4am Bed was not availalbe at [facility] due to nephrology provider capacity tonight. Physical bed is being held. Request to call again after 9am to try and facilitate transfer 03/12/22: Patient seen independently evaluated by myself. Patient signed out to myself by Dr. Zabala. Patient has tenosynovitis of his upper extremity he is postop day 3 with washout with reported plan for patient to return to the OR today. Will consult with Dr. Harris with Orthopedic surgery. He did have his 1/2 episode of dialysis yesterday with a ship and return to our facility due to critical bed shortage there was no other option available patient was unable to be transferred. Patient seen he was currently sitting on the commode in the room appears well otherwise. His main complaint was his tailbone hurting and that his bed was uncomfortable. He did fall on his buttocks and asked if we could evaluate his coccyx and x-ray of coccyx sacrum was obtained and are negative. Patient's antibiotics were reviewed he is on vancomycin trough was ordered and level was obtained, received a dose with HD yesterday. Levels being ordered and monitored with pharmacy. Did discuss based on his sensitivities he is sensitive for vanco but is MSSA and based on the fact that he is here and boarding and unable to be transferred this was felt to be the best choice and probably the least amount of total fluid compared to other options. Patient also Rocephin for possible pneumonia. Patient has not had any labs today CBC, CMP and procalcitonin were ordered. Outside facilities were re-contacted again to see about availability and were unsuccessful. Patient take to OR today for distal amputation of finger by Dr. Harris and returned to ER without additional issue. Patient had hospitalist consult as well, recommendations appreciated. Dr Scales: overnight 03/12-03/13 received turned over. Reviewed patient's history and physical exam. Patient has been stable overnight. No issues. Care turned over to Dr. Jennings to follow-up to continue to disposition. Dr. Jennings (03/13/22): Patient seen and evaluated independently by myself. Patient stable overnight and care was turned back over to myself. Patient has been afebrile no signs of developing sepsis. He was taken to the OR yesterday for additional amputation of the finger. Labs are being repeated this morning, if these are stable and patient continues to appear to be improving will discuss with orthopedic surgery and hospitalist who was consulted for additional medical management if appropriate for discharge home on oral antibiotics to have outpatient dialysis as we are critical capacity state wide and unable to find beds to transferred for dialysis and patient will ultimately began to develop trouble if he continues to board here in the department. Patient is on day 5 of boarding in the emergency department. Patient is open to and agreeable with this plan. Patient was seen again today by Orthopedic surgery they would like to evaluate his hand tomorrow. If it is improving he could potentially go home with IV antibiotics. Patient lives in assisted living. He will also need home health child care team lead for bandage changes. I spoke with his director biomedical engineering Dr. Mckeon who is happy to see the patient if he is able to be discharged tomorrow they can try to sneak him into dialysis early if not they might be able to do a ship in return. He states often with treatments they will use ceftazidime and vanco with each dialysis so patient would not require additional doses outside his dialysis. He asked if in order can be sent to his fax at [phone] for antibiotic orders. Patient labs today continue to be stable with out increasing O2 requirements. Patient signed out to Dr. Scales while awaiting eval with ortho and [employer]. We have continued to search for bed through out the day but the region is critically low on all beds not just dialysis availability and patient has not been accepted or able to be transferred at this time. 03/14/22- Miriam Patient seen evaluated this morning. Sitting up eating breakfast no complaints. He denies any pain. Plan today is hopefully discharge home. A/P 1. Flexor tenosynovitis postop -weight orthopedic recommendations, continue antibiotic, vancomycin with dialysis 2.Hypoxia -repeat chest x-ray, get set up with home O2 3. Chronic kidney disease -dialysis Monday hope to continue dialysis as previously scheduled with IV antibiotics 830am Dr. Marie, infectious Disease has reviewed cultures and recommends cefazolin 2 g Monday and and 3 g on Monday with dialysis. This goes on for 2-3 weeks for up to 6 weeks depending on pathology. There is a pathology report is pending but final results not back yet. She requests labs CBC, liver panel, CRP done be and Monday and results faxed to [phone]. Orthopedics has been down to see and evaluate patient agree with discharge t zia. Home health has been set Patient has oxygen at home, and is encouraged to wear it. <Heidi Jennings, DO - Last Filed: 03/14/22 13:18> Lab Data Labs: Lab Results 03/09/22 03/09/22 03/09/22 Range/Units 14:13 16:29 16:29 WBC 7.3 (4.5-11.0) X10^3/uL RBC 2.77 L (4.5-5.9) X10^6/uL Hgb 8.9 L (13.5-17.5) g/dL Hct 26.3 L (41-53) % MCV 95.0 (80-100) fL MCH 32.1 (26-34) PG MCHC 33.8 (30-36) % RDW 16.6 H (11.6-14.8) % Plt Count 127 L (150-400) X10^3/uL Neut % (Auto) 78.1 H (50-75) % Lymph % (Auto) 7.2 L (25-40) % Leake % (Auto) 3.7 (3-14) % Eos % (Auto) 10.7 H (2-4) % Baso % (Auto) 0.3 (0-2) % Neut # (Auto) 5700 (0635-8832) /uL Lymph # (Auto) 500 L (1298-2475) /uL Leake # (Auto) 300 (0-900) /uL Eos # (Auto) 800 H (0-450) /uL Baso # (Auto) 0 (0-100) /uL ESR (0-15) MM/HR ABG pH (7.35-7.45) ABG pCO2 (35-45) mmHg ABG pO2 (80-100) mmHg ABG HCO3 (22-26) mmol/L ABG Total CO2 (21-31) mmol/L ABG O2 Saturation (95-100) % ABG Base Excess (-2-2) mmol/L FiO2 Sodium 140 (137-145) mmol/L Potassium 4.5 (3.4-5.1) mmol/L Chloride 97 L (98-107) mmol/L Carbon Dioxide 29 (22-32) mmol/L BUN 58 H (9-20) mg/dL Creatinine 7.84 H* (0.66-1.25) mg/dL Estimated GFR 7 L (>60) mL/min BUN/Creatinine Ratio 7.4 (6-22) Glucose 141 H (80-110) mg/dL Lactate (0.7-2.1) mmol/L Calcium 8.6 (8.4-10.2) mg/dL Total Bilirubin 0.7 (0.2-1.3) mg/dL AST 21 (17-59) IU/L ALT 17 (<50) IU/L Alkaline Phosphatase 72 (38-126) U/L C-Reactive Protein (<1.0) mg/dL Total Protein 6.5 (6.3-8.2) g/dL Albumin 3.7 (3.5-5.0) g/dL Globulin 2.8 (1.7-4.1) g/dL Albumin/Globulin Ratio 1.3 (1.0-2.8) Procalcitonin 0.70 H (<0.5) ng/mL Random Vancomycin (10-40) ug/mL SARS-CoV-2 (PCR) Negative (Negative) 03/09/22 03/09/22 03/09/22 Range/Units 16:29 16:29 16:29 WBC (4.5-11.0) X10^3/uL RBC (4.5-5.9) X10^6/uL Hgb (13.5-17.5) g/dL Hct (41-53) % MCV (80-100) fL MCH (26-34) PG MCHC (30-36) % RDW (11.6-14.8) % Plt Count (150-400) X10^3/uL Neut % (Auto) (50-75) % Lymph % (Auto) (25-40) % Leake % (Auto) (3-14) % Eos % (Auto) (2-4) % Baso % (Auto) (0-2) % Neut # (Auto) (1063-7721) /uL Lymph # (Auto) (2740-9732) /uL Leake # (Auto) (0-900) /uL Eos # (Auto) (0-450) /uL Baso # (Auto) (0-100) /uL ESR 88 H (0-15) MM/HR ABG pH (7.35-7.45) ABG pCO2 (35-45) mmHg ABG pO2 (80-100) mmHg ABG HCO3 (22-26) mmol/L ABG Total CO2 (21-31) mmol/L ABG O2 Saturation (95-100) % ABG Base Excess (-2-2) mmol/L FiO2 Sodium (137-145) mmol/L Potassium (3.4-5.1) mmol/L Chloride (98-107) mmol/L Carbon Dioxide (22-32) mmol/L BUN (9-20) mg/dL Creatinine (0.66-1.25) mg/dL Estimated GFR (>60) mL/min BUN/Creatinine Ratio (6-22) Glucose (80-110) mg/dL Lactate 0.9 (0.7-2.1) mmol/L Calcium (8.4-10.2) mg/dL Total Bilirubin (0.2-1.3) mg/dL AST (17-59) IU/L ALT (<50) IU/L Alkaline Phosphatase (38-126) U/L C-Reactive Protein 18.4 H (<1.0) mg/dL Total Protein (6.3-8.2) g/dL Albumin (3.5-5.0) g/dL Globulin (1.7-4.1) g/dL Albumin/Globulin Ratio (1.0-2.8) Procalcitonin (<0.5) ng/mL Random Vancomycin (10-40) ug/mL SARS-CoV-2 (PCR) (Negative) 03/10/22 03/10/22 03/10/22 Range/Units 08:15 08:15 12:26 WBC 7.2 (4.5-11.0) X10^3/uL RBC 2.87 L (4.5-5.9) X10^6/uL Hgb 9.2 L (13.5-17.5) g/dL Hct 27.5 L (41-53) % MCV 95.6 (80-100) fL MCH 31.9 (26-34) PG MCHC 33.3 (30-36) % RDW 16.4 H (11.6-14.8) % Plt Count 130 L (150-400) X10^3/uL Neut % (Auto) 79.9 H (50-75) % Lymph % (Auto) 2.3 L (25-40) % Leake % (Auto) 6.3 (3-14) % Eos % (Auto) 11.3 H (2-4) % Baso % (Auto) 0.2 (0-2) % Neut # (Auto) 5800 (4441-4626) /uL Lymph # (Auto) 200 L (6159-7020) /uL Leake # (Auto) 500 (0-900) /uL Eos # (Auto) 800 H (0-450) /uL Baso # (Auto) 0 (0-100) /uL ESR (0-15) MM/HR ABG pH 7.44 (7.35-7.45) ABG pCO2 38.3 (35-45) mmHg ABG pO2 77 L (80-100) mmHg ABG HCO3 26 (22-26) mmol/L ABG Total CO2 27 (21-31) mmol/L ABG O2 Saturation 96 (95-100) % ABG Base Excess 2.0 (-2-2) mmol/L FiO2 40 Sodium 138 (137-145) mmol/L Potassium 4.6 (3.4-5.1) mmol/L Chloride 98 (98-107) mmol/L Carbon Dioxide 22 (22-32) mmol/L BUN 65 H (9-20) mg/dL Creatinine 8.39 H* (0.66-1.25) mg/dL Estimated GFR 6 L (>60) mL/min BUN/Creatinine Ratio 7.7 (6-22) Glucose 138 H (80-110) mg/dL Lactate (0.7-2.1) mmol/L Calcium 8.7 (8.4-10.2) mg/dL Total Bilirubin 0.8 (0.2-1.3) mg/dL AST 18 (17-59) IU/L ALT 17 (<50) IU/L Alkaline Phosphatase 64 (38-126) U/L C-Reactive Protein (<1.0) mg/dL Total Protein 7.1 (6.3-8.2) g/dL Albumin 3.9 (3.5-5.0) g/dL Globulin 3.2 (1.7-4.1) g/dL Albumin/Globulin Ratio 1.2 (1.0-2.8) Procalcitonin (<0.5) ng/mL Random Vancomycin (10-40) ug/mL SARS-CoV-2 (PCR) (Negative) 03/11/22 03/11/22 03/11/22 Range/Units 07:40 07:40 07:40 WBC 6.1 (4.5-11.0) X10^3/uL RBC 2.72 L (4.5-5.9) X10^6/uL Hgb 8.7 L (13.5-17.5) g/dL Hct 25.9 L (41-53) % MCV 95.4 (80-100) fL MCH 31.9 (26-34) PG MCHC 33.4 (30-36) % RDW 16.0 H (11.6-14.8) % Plt Count 150 (150-400) X10^3/uL Neut % (Auto) 73.8 (50-75) % Lymph % (Auto) 4.5 L (25-40) % Leake % (Auto) 6.5 (3-14) % Eos % (Auto) 14.9 H (2-4) % Baso % (Auto) 0.3 (0-2) % Neut # (Auto) 4500 (9967-1469) /uL Lymph # (Auto) 300 L (9861-0787) /uL Leake # (Auto) 400 (0-900) /uL Eos # (Auto) 900 H (0-450) /uL Baso # (Auto) 0 (0-100) /uL ESR (0-15) MM/HR ABG pH (7.35-7.45) ABG pCO2 (35-45) mmHg ABG pO2 (80-100) mmHg ABG HCO3 (22-26) mmol/L ABG Total CO2 (21-31) mmol/L ABG O2 Saturation (95-100) % ABG Base Excess (-2-2) mmol/L FiO2 Sodium 138 (137-145) mmol/L Potassium 4.6 (3.4-5.1) mmol/L Chloride 99 (98-107) mmol/L Carbon Dioxide 24 (22-32) mmol/L BUN 77 H (9-20) mg/dL Creatinine 8.25 H* (0.66-1.25) mg/dL Estimated GFR 6 L (>60) mL/min BUN/Creatinine Ratio 9.3 (6-22) Glucose 117 H (80-110) mg/dL Lactate (0.7-2.1) mmol/L Calcium 8.6 (8.4-10.2) mg/dL Total Bilirubin 0.7 (0.2-1.3) mg/dL AST 22 (17-59) IU/L ALT 19 (<50) IU/L Alkaline Phosphatase 73 (38-126) U/L C-Reactive Protein (<1.0) mg/dL Total Protein 6.8 (6.3-8.2) g/dL Albumin 3.7 (3.5-5.0) g/dL Globulin 3.1 (1.7-4.1) g/dL Albumin/Globulin Ratio 1.2 (1.0-2.8) Procalcitonin 0.62 H (<0.5) ng/mL Random Vancomycin (10-40) ug/mL SARS-CoV-2 (PCR) (Negative) 03/12/22 03/12/22 03/12/22 Range/Units 04:55 08:44 08:44 WBC 6.5 (4.5-11.0) X10^3/uL RBC 2.54 L (4.5-5.9) X10^6/uL Hgb 8.1 L (13.5-17.5) g/dL Hct 24.3 L (41-53) % MCV 95.5 (80-100) fL MCH 32.0 (26-34) PG MCHC 33.5 (30-36) % RDW 16.3 H (11.6-14.8) % Plt Count 152 (150-400) X10^3/uL Neut % (Auto) 82.0 H (50-75) % Lymph % (Auto) 5.7 L (25-40) % Leake % (Auto) 6.2 (3-14) % Eos % (Auto) 5.5 H (2-4) % Baso % (Auto) 0.6 (0-2) % Neut # (Auto) 5300 (0626-9072) /uL Lymph # (Auto) 400 L (7354-5569) /uL Leake # (Auto) 400 (0-900) /uL Eos # (Auto) 400 (0-450) /uL Baso # (Auto) 0 (0-100) /uL ESR (0-15) MM/HR ABG pH (7.35-7.45) ABG pCO2 (35-45) mmHg ABG pO2 (80-100) mmHg ABG HCO3 (22-26) mmol/L ABG Total CO2 (21-31) mmol/L ABG O2 Saturation (95-100) % ABG Base Excess (-2-2) mmol/L FiO2 Sodium 138 (137-145) mmol/L Potassium 4.6 (3.4-5.1) mmol/L Chloride 98 (98-107) mmol/L Carbon Dioxide 27 (22-32) mmol/L BUN 64 H (9-20) mg/dL Creatinine 7.34 H (0.66-1.25) mg/dL Estimated GFR 7 L (>60) mL/min BUN/Creatinine Ratio 8.7 (6-22) Glucose 166 H (80-110) mg/dL Lactate (0.7-2.1) mmol/L Calcium 8.5 (8.4-10.2) mg/dL Total Bilirubin 0.5 (0.2-1.3) mg/dL AST 23 (17-59) IU/L ALT 19 (<50) IU/L Alkaline Phosphatase 72 (38-126) U/L C-Reactive Protein (<1.0) mg/dL Total Protein 6.4 (6.3-8.2) g/dL Albumin 3.5 (3.5-5.0) g/dL Globulin 2.9 (1.7-4.1) g/dL Albumin/Globulin Ratio 1.2 (1.0-2.8) Procalcitonin 0.90 H (<0.5) ng/mL Random Vancomycin 11.0 (10-40) ug/mL SARS-CoV-2 (PCR) (Negative) 03/13/22 03/13/22 03/14/22 Range/Units 10:38 10:38 10:22 WBC 7.9 (4.5-11.0) X10^3/uL RBC 2.63 L (4.5-5.9) X10^6/uL Hgb 8.4 L (13.5-17.5) g/dL Hct 25.5 L (41-53) % MCV 97.1 (80-100) fL MCH 32.0 (26-34) PG MCHC 33.0 (30-36) % RDW 16.9 H (11.6-14.8) % Plt Count 153 (150-400) X10^3/uL Neut % (Auto) 78.9 H (50-75) % Lymph % (Auto) 5.5 L (25-40) % Leake % (Auto) 4.0 (3-14) % Eos % (Auto) 11.2 H (2-4) % Baso % (Auto) 0.4 (0-2) % Neut # (Auto) 6200 (9388-1007) /uL Lymph # (Auto) 400 L (7860-6959) /uL Leake # (Auto) 300 (0-900) /uL Eos # (Auto) 900 H (0-450) /uL Baso # (Auto) 0 (0-100) /uL ESR (0-15) MM/HR ABG pH (7.35-7.45) ABG pCO2 (35-45) mmHg ABG pO2 (80-100) mmHg ABG HCO3 (22-26) mmol/L ABG Total CO2 (21-31) mmol/L ABG O2 Saturation (95-100) % ABG Base Excess (-2-2) mmol/L FiO2 Sodium 140 (137-145) mmol/L Potassium 4.5 (3.4-5.1) mmol/L Chloride 101 (98-107) mmol/L Carbon Dioxide 21 L (22-32) mmol/L BUN 71 H (9-20) mg/dL Creatinine 8.34 H* (0.66-1.25) mg/dL Estimated GFR 6 L (>60) mL/min BUN/Creatinine Ratio 8.5 (6-22) Glucose 139 H (80-110) mg/dL Lactate (0.7-2.1) mmol/L Calcium 8.3 L (8.4-10.2) mg/dL Total Bilirubin 0.4 (0.2-1.3) mg/dL AST 27 (17-59) IU/L ALT 21 (<50) IU/L Alkaline Phosphatase 94 (38-126) U/L C-Reactive Protein (<1.0) mg/dL Total Protein 6.6 (6.3-8.2) g/dL Albumin 3.6 (3.5-5.0) g/dL Globulin 3.0 (1.7-4.1) g/dL Albumin/Globulin Ratio 1.2 (1.0-2.8) Procalcitonin 0.98 H (<0.5) ng/mL Random Vancomycin 22.2 (10-40) ug/mL SARS-CoV-2 (PCR) (Negative) 03/14/22 03/14/22 Range/Units 10:22 10:22 WBC 11.0 (4.5-11.0) X10^3/uL RBC 2.49 L (4.5-5.9) X10^6/uL Hgb 7.9 L (13.5-17.5) g/dL Hct 23.9 L (41-53) % MCV 96.0 (80-100) fL MCH 31.7 (26-34) PG MCHC 33.0 (30-36) % RDW 16.4 H (11.6-14.8) % Plt Count 165 (150-400) X10^3/uL Neut % (Auto) 81.2 H (50-75) % Lymph % (Auto) 3.3 L (25-40) % Leake % (Auto) 4.0 (3-14) % Eos % (Auto) 10.6 H (2-4) % Baso % (Auto) 0.9 (0-2) % Neut # (Auto) 9000 H (3230-3790) /uL Lymph # (Auto) 400 L (0245-8872) /uL Leake # (Auto) 400 (0-900) /uL Eos # (Auto) 1200 H (0-450) /uL Baso # (Auto) 100 (0-100) /uL ESR (0-15) MM/HR ABG pH (7.35-7.45) ABG pCO2 (35-45) mmHg ABG pO2 (80-100) mmHg ABG HCO3 (22-26) mmol/L ABG Total CO2 (21-31) mmol/L ABG O2 Saturation (95-100) % ABG Base Excess (-2-2) mmol/L FiO2 Sodium 141 (137-145) mmol/L Potassium 4.8 (3.4-5.1) mmol/L Chloride 101 (98-107) mmol/L Carbon Dioxide 20 L (22-32) mmol/L BUN 79 H (9-20) mg/dL Creatinine 8.61 H* (0.66-1.25) mg/dL Estimated GFR 6 L (>60) mL/min BUN/Creatinine Ratio 9.2 (6-22) Glucose 208 H (80-110) mg/dL Lactate (0.7-2.1) mmol/L Calcium 8.2 L (8.4-10.2) mg/dL Total Bilirubin 0.4 (0.2-1.3) mg/dL AST 24 (17-59) IU/L ALT 23 (<50) IU/L Alkaline Phosphatase 106 (38-126) U/L C-Reactive Protein (<1.0) mg/dL Total Protein 6.5 (6.3-8.2) g/dL Albumin 3.5 (3.5-5.0) g/dL Globulin 3.0 (1.7-4.1) g/dL Albumin/Globulin Ratio 1.2 (1.0-2.8) Procalcitonin 0.81 H (<0.5) ng/mL Random Vancomycin (10-40) ug/mL SARS-CoV-2 (PCR) (Negative) Point of Care Testing Glucose POC 115 MDM Narrative Medical decision making narrative: This is a 72-year-old male with history of type 2 diabetes, is not anticoagulated, has CKD and is a Monday, , and Monday dialysis patient, he denies other significant medical conditions and presents to the emergency department with wound on his right hand 5th digit the distal tip which occurred one week ago. Patient states it started as a pus-filled blister on distal fingertips and it has progressed in to a wound covering the distal 1/3 of his 5th digit, it is edematous with erythema, weeping clear fluid, and he has lymphangitis tracking up his forearm without ability to extend his 5th digit and concern for extensor tenosynovitis. Patient was sent to the emergency department by Dr. Pierre from the walk-in clinic at [facility]. He has a right upper arm fistula which is what is currently used for his dialysis, he also has the left upper arm fistula which has not been used in at least one year. A peripheral IV was placed in his lower forearm on the left. Wound culture was obtained prior to antibiotics. X-ray of his right hand and forearm are negative for osseous erosion, fracture, dislocation, it does show right hand soft tissue swelling on the dorsum. Consultation with Orthopedics at [facility] with Dr. Aldridge for surgical debridement and admission for tenosynovitis with dialysis. Photos of patient's wounds were shared with the physician, he agrees that this is ten osynovitis and patient needs surgical washout and debridement emergently. There are no beds available at [facility], there are no beds available. Consultation with Dr. Kristina Harris about possible OR washout and debridement with boarding in the emergency department after OR to find a bed at another hospital with dialysis capabilities. She agrees to come and evaluate the patient, and of consultation was placed. Patient was given doxycycline initially in the emergency department when there was no IV access and concern for bilateral upper arm fistulas. IV access was later obtained, and lab work was obtained. Patient is not having leukocytosis although he does have mild anemia without any prior lab work to compare to, hemoglobin of 8.9, hematocrit of 26.3, platelet count of 127, no significant electrolyte abnormalities, sodium 140, potassium of 4.5, creatinine of 7.8 or with a BUN of 58, GFR of seven, lactate of 0.9, CRP is elevated at 18.4 and procalcitonin is elevated at 0.7, COVID PCR is negative, no elevation to his liver enzymes. Wound culture is pending, patient was given IV ceft riaxone, Flagyl, and vancomycin order for pharmacy to dose was placed. Dr. Kristina Harris arrived to the bedside to consent the patient for the operating room. 03/10/22 Dr Zabala 1;45 am Patient is doing well postop. Pain is controlled A.m. labs and antibiotics are ordered Will begin calling for bed placement again early this morning. 03/10/22 Miriam 8am Patient is a 72-year-old male seen evaluated by myself. Postop for flexor tenosynovitis the right pinky. Patient states that the streaking and redness has gone down significantly. Hand is in bandage. He is currently shaking and quite chilled but is afebrile. Surgery note reports multiple areas fluid collection which have now been debrided and drained. Patient is supposed to have dialysis today. Director Transportation is . He is actually to be 84% on room air. He has absolutely no respiratory distress speaking full sentences but there is a good wave on the monitor. He is put on 4 L of oxygen. Chest x-ray is ordered. GENERAL: Awake alert 72-year-old male sitting at edge of bed eating breakfast HEENT: Head atraumatic,EOMI, pupils reactive, face symmetric, moist mucous membranes CARDIOVASCULAR: Regular rate and rhythm without murmurs, rubs or gallops. RESPIRATORY: No respiratory distress breath sounds equal no crackles rales or rhonchi EXTREMITIES: Normal range of motion, no clubbing or edema. Neurovascularly intact NEUROLOGICAL: Alert and oriented x4. SKIN: Right hand is in bandage. No streaking above the bandage. No erythema 1. Flexor tenosynovitis: Postop day 1. Continue antibiotics. May need further washout ortho recommendations. Also fracture of right 5th DIP 2. Chronic kidney disease, dialysis Monday need dialysis today, no bed available at any facility continue working on transfer 3. New onset hypoxia check chest x-ray continue to monitor his probably fluid overload from surgery and antibiotics, need dialysis today Multiple hospitals have been called the entire state is on critical bed shortage. CC states that there are at least 7 other dialysis patients or in more critical condition then are patient with are no dialysis beds. Encouraged us to look other ways for him to get dialysis including his outpatient center. Patient goes to [facility]. Patient is able to get dialysis today but must be there before 3:20pm they close they are not able to extend there hours. I have spoken with Dr. Chavira, who states he is happy to help. He can even give a dose of IV vancomycin with dialysis. He states that patient is chronically hypoxic. He is satting in the 80%. Dr. Chavira request ABG, He has been this way for a very long time. Not sure why. After further discussion with patient he says that he has a home concentrator at home but he does not feel like he needs oxygen so he never uses it. Currently on 4-6 L Significant efforts have been made to arrange for outpatient dialysis. Discussion with hospital staff and administration, who agree that patient does need dialysis and may be discharged to dialysis and returned to the emergency department after dialysis. Unfortunately not able to arrange transport in time before the dialysis center closes. However arrangements have been made for tomorrow. Patient can go to dialysis at 3:00 p.m. to 6:00 p.m. and ambulance has already been set up. 1720 Dr. Noe orthopedics at [facility] has been consulted. Pictures have been sent with patient consent. Hand was wrapped slightly at the time all recommends a DIP amputation at bedside in the ED. 8pm [facility] has NO BEDS available tonight. suggested calling tomorrow Will continue with contingency plan of EMS transfer to and from outpatient di alysis tomorrow while awaiting inpatient bed availability 03/11/22 Miriam 9am Patient remains waiting in the emergency department with IV antibiotics. He remains on 5 L nasal cannula without any respiratory symptoms. He has a plan to go to dialysis today. Culture grew staph. Patient is sleeping he really has no complaints. He is offered pain medication but declines at this time. GENERAL: Alert currently cooperative 72-year-old male HEENT: Head atraumatic,EOMI, pupils reactive, face symmetric, moist mucous membranes CARDIOVASCULAR: Regular rate and rhythm without murmurs, rubs or gallops. RESPIRATORY: Breath sounds equal bilaterally, no wheezes rales or rhonchi. EXTREMITIES: Normal range of motion, no clubbing or edema. Neurovascularly intact NEUROLOGICAL: Alert and oriented x4. SKIN: Right hand tip of finger is actually less necrotic looking today. It is not tender to touch. Dressing remains mostly in place. A/P 1. Flexor tenosynovitis postop day number 2. Continue antibiotics ortho recommendations culture grew Staph aureus stop Flagyl continue vancomycin with dialysis and Rocephin. Orthopedics recommend antibiotics for 1 week. Possible re-washed out next 24 hours with pin for fracture Dr. Harris repeorts if still here on 03/12/22 will go back to OR here at [facility], then possible dc with IV vancomycin with dialysis. NPO after midnight 2. Chronic kidney disease-dialysis today. Possibilities include outpatient arranged at [facility] ED a more he normally goes with return to emergency department versus transfer to [facility]. Patient also remains on multiple hospital list but due to critical bed shortage outpatient dialysis seems to be current and best option 3. Hypoxia. Patient remains on 4-5 L oxygen. Patient is not tachypneic he denies any shortness of breath, according to dialysis center he is always hypoxic 80%. Patient states that he has got oxygen concentrator at home he only uses 2 L if needed. he received Lasix yesterday. He did seem to urinate and respond. On Lasix daily anyway. Possible fluid overload from recent operation and multiple IV antibiotics. Patient continues to be hypoxic he had a CT angio today seeing is of is going to dialysis. CT angio showed pleural effusions. And no pulmonary embolism. Despite efforts from yesterday to set up transportation to and from dialysis. Unfortunately transportation was an hour and half. Patient successfully did go to dialysis for about 2 hours and he returned at baseline. signed out to Dr. Zabala 03/12 4am Bed was not availalbe at [facility] due to nephrology provider capacity tonight. Physical bed is being held. Request to call again after 9am to try and facilitate transfer 03/12/22: Patient seen independently evaluated by myself. Patient signed out to myself by Dr. Zabala. Patient has tenosynovitis of his upper extremity he is postop day 3 with washout with reported plan for patient to return to the OR today. Will consult with Dr. Harris with Orthopedic surgery. He did have his 1/2 episode of dialysis yesterday with a ship and return to our facility due to critical bed shortage there was no other option available patient was unable to be transferred. Patient seen he was currently sitting on the commode in the room appears well otherwise. His main complaint was his tailbone hurting and that his bed was uncomfortable. He did fall on his buttocks and asked if we could evaluate his coccyx and x-ray of coccyx sacrum was obtained and are negative. Patient's antibiotics were reviewed he is on vancomycin trough was ordered and level was obtained, received a dose with HD yesterday. Levels being ordered and monitored with pharmacy. Did discuss based on his sensitivities he is sensitive for vanco but is MSSA and based on the fact that he is here and boarding and unable to be transferred this was felt to be the best choice and probably the least amount of total fluid compared to other options. Patient also Rocephin for possible pneumonia. Patient has not had any labs today CBC, CMP and procalcitonin were ordered. Outside facilities were re-contacted again to see about availability and were unsuccessful. Patient take to OR today for distal amputation of finger by Dr. Harris and returned to ER without additional issue. Patient had hospitalist consult as well, recommendations appreciated. Dr Scales: overnight 03/12-03/13 received turned over. Reviewed patient's history and physical exam. Patient has been stable overnight. No issues. Care turned over to Dr. Jennings to follow-up to continue to disposition. Dr. Jennings (03/13/22): Patient seen and evaluated independently by myself. Patient stable overnight and care was turned back over to myself. Patient has been afebrile no signs of developing sepsis. He was taken to the OR yesterday for additional amputation of the finger. Labs are being repeated this morning, if these are stable and patient continues to appear to be improving will discuss with orthopedic surgery and hospitalist who was consulted for additional medical management if appropriate for discharge home on oral antibiotics to have outpatient dialysis as we are critical capacity state wide and unable to find beds to transferred for dialysis and patient will ultimately began to develop trouble if he continues to board here in the department. Patient is on day 5 of boarding in the emergency department. Patient is open to and agreeable with this plan. Patient was seen again today by Orthopedic surgery they would like to evaluate his hand tomorrow. If it is improving he could potentially go home with IV antibiotics. Patient lives in assisted living. He will also need home health child care team lead for bandage changes. I spoke with his director biomedical engineering Dr. Mckeon who is happy to see the patient if he is able to be discharged tomorrow they can try to sneak him into dialysis early if not they might be able to do a ship in return. He states often with treatments they will use ceftazidime and vanco with each dialysis so patient would not require additional doses outside his dialysis. He asked if in order can be sent to his fax at [phone] for antibiotic orders. Patient labs today continue to be stable with out increasing O2 requirements. Patient signed out to Dr. Scales while awaiting eval with ortho and [employer]. We have continued to search for bed through out the day but the region is critically low on all beds not just dialysis availability and patient has not been accepted or able to be transferred at this time. 03/14/22- Miriam Patient seen evaluated this morning. Sitting up eating breakfast no complaints. He denies any pain. Plan today is hopefully discharge home. A/P 1. Flexor tenosynovitis postop -weight orthopedic recommendations, continue antibiotic, vancomycin with dialysis 2.Hypoxia -repeat chest x-ray, get set up with home O2 3. Chronic kidney disease -dialysis Monday hope to continue dialysis as previously scheduled with IV antibiotics <Aristeo Scales DO - Last Filed: 03/13/22 06:29> Lab Data Labs: Lab Results 03/09/22 03/09/22 03/09/22 Range/Units 14:13 16:29 16:29 WBC 7.3 (4.5-11.0) X10^3/uL RBC 2.77 L (4.5-5.9) X10^6/uL Hgb 8.9 L (13.5-17.5) g/dL Hct 26.3 L (41-53) % MCV 95.0 (80-100) fL MCH 32.1 (26-34) PG MCHC 33.8 (30-36) % RDW 16.6 H (11.6-14.8) % Plt Count 127 L (150-400) X10^3/uL Neut % (Auto) 78.1 H (50-75) % Lymph % (Auto) 7.2 L (25-40) % Leake % (Auto) 3.7 (3-14) % Eos % (Auto) 10.7 H (2-4) % Baso % (Auto) 0.3 (0-2) % Neut # (Auto) 5700 (0123-1543) /uL Lymph # (Auto) 500 L (0973-1655) /uL Leake # (Auto) 300 (0-900) /uL Eos # (Auto) 800 H (0-450) /uL Baso # (Auto) 0 (0-100) /uL ESR (0-15) MM/HR ABG pH (7.35-7.45) ABG pCO2 (35-45) mmHg ABG pO2 (80-100) mmHg ABG HCO3 (22-26) mmol/L ABG Total CO2 (21-31) mmol/L ABG O2 Saturation (95-100) % ABG Base Excess (-2-2) mmol/L FiO2 Sodium 140 (137-145) mmol/L Potassium 4.5 (3.4-5.1) mmol/L Chloride 97 L (98-107) mmol/L Carbon Dioxide 29 (22-32) mmol/L BUN 58 H (9-20) mg/dL Creatinine 7.84 H* (0.66-1.25) mg/dL Estimated GFR 7 L (>60) mL/min BUN/Creatinine Ratio 7.4 (6-22) Glucose 141 H (80-110) mg/dL Lactate (0.7-2.1) mmol/L Calcium 8.6 (8.4-10.2) mg/dL Total Bilirubin 0.7 (0.2-1.3) mg/dL AST 21 (17-59) IU/L ALT 17 (<50) IU/L Alkaline Phosphatase 72 (38-126) U/L C-Reactive Protein (<1.0) mg/dL Total Protein 6.5 (6.3-8.2) g/dL Albumin 3.7 (3.5-5.0) g/dL Globulin 2.8 (1.7-4.1) g/dL Albumin/Globulin Ratio 1.3 (1.0-2.8) Procalcitonin 0.70 H (<0.5) ng/mL Random Vancomycin (10-40) ug/mL SARS-CoV-2 (PCR) Negative (Negative) 03/09/22 03/09/22 03/09/22 Range/Units 16:29 16:29 16:29 WBC (4.5-11.0) X10^3/uL RBC (4.5-5.9) X10^6/uL Hgb (13.5-17.5) g/dL Hct (41-53) % MCV (80-100) fL MCH (26-34) PG MCHC (30-36) % RDW (11.6-14.8) % Plt Count (150-400) X10^3/uL Neut % (Auto) (50-75) % Lymph % (Auto) (25-40) % Leake % (Auto) (3-14) % Eos % (Auto) (2-4) % Baso % (Auto) (0-2) % Neut # (Auto) (7381-3064) /uL Lymph # (Auto) (1107-4556) /uL Leake # (Auto) (0-900) /uL Eos # (Auto) (0-450) /uL Baso # (Auto) (0-100) /uL ESR 88 H (0-15) MM/HR ABG pH (7.35-7.45) ABG pCO2 (35-45) mmHg ABG pO2 (80-100) mmHg ABG HCO3 (22-26) mmol/L ABG Total CO2 (21-31) mmol/L ABG O2 Saturation (95-100) % ABG Base Excess (-2-2) mmol/L FiO2 Sodium (137-145) mmol/L Potassium (3.4-5.1) mmol/L Chloride (98-107) mmol/L Carbon Dioxide (22-32) mmol/L BUN (9-20) mg/dL Creatinine (0.66-1.25) mg/dL Estimated GFR (>60) mL/min BUN/Creatinine Ratio (6-22) Glucose (80-110) mg/dL Lactate 0.9 (0.7-2.1) mmol/L Calcium (8.4-10.2) mg/dL Total Bilirubin (0.2-1.3) mg/dL AST (17-59) IU/L ALT (<50) IU/L Alkaline Phosphatase (38-126) U/L C-Reactive Protein 18.4 H (<1.0) mg/dL Total Protein (6.3-8.2) g/dL Albumin (3.5-5.0) g/dL Globulin (1.7-4.1) g/dL Albumin/Globulin Ratio (1.0-2.8) Procalcitonin (<0.5) ng/mL Random Vancomycin (10-40) ug/mL SARS-CoV-2 (PCR) (Negative) 03/10/22 03/10/22 03/10/22 Range/Units 08:15 08:15 12:26 WBC 7.2 (4.5-11.0) X10^3/uL RBC 2.87 L (4.5-5.9) X10^6/uL Hgb 9.2 L (13.5-17.5) g/dL Hct 27.5 L (41-53) % MCV 95.6 (80-100) fL MCH 31.9 (26-34) PG MCHC 33.3 (30-36) % RDW 16.4 H (11.6-14.8) % Plt Count 130 L (150-400) X10^3/uL Neut % (Auto) 79.9 H (50-75) % Lymph % (Auto) 2.3 L (25-40) % Leake % (Auto) 6.3 (3-14) % Eos % (Auto) 11.3 H (2-4) % Baso % (Auto) 0.2 (0-2) % Neut # (Auto) 5800 (7801-9633) /uL Lymph # (Auto) 200 L (4321-3564) /uL Leake # (Auto) 500 (0-900) /uL Eos # (Auto) 800 H (0-450) /uL Baso # (Auto) 0 (0-100) /uL ESR (0-15) MM/HR ABG pH 7.44 (7.35-7.45) ABG pCO2 38.3 (35-45) mmHg ABG pO2 77 L (80-100) mmHg ABG HCO3 26 (22-26) mmol/L ABG Total CO2 27 (21-31) mmol/L ABG O2 Saturation 96 (95-100) % ABG Base Excess 2.0 (-2-2) mmol/L FiO2 40 Sodium 138 (137-145) mmol/L Potassium 4.6 (3.4-5.1) mmol/L Chloride 98 (98-107) mmol/L Carbon Dioxide 22 (22-32) mmol/L BUN 65 H (9-20) mg/dL Creatinine 8.39 H* (0.66-1.25) mg/dL Estimated GFR 6 L (>60) mL/min BUN/Creatinine Ratio 7.7 (6-22) Glucose 138 H (80-110) mg/dL Lactate (0.7-2.1) mmol/L Calcium 8.7 (8.4-10.2) mg/dL Total Bilirubin 0.8 (0.2-1.3) mg/dL AST 18 (17-59) IU/L ALT 17 (<50) IU/L Alkaline Phosphatase 64 (38-126) U/L C-Reactive Protein (<1.0) mg/dL Total Protein 7.1 (6.3-8.2) g/dL Albumin 3.9 (3.5-5.0) g/dL Globulin 3.2 (1.7-4.1) g/dL Albumin/Globulin Ratio 1.2 (1.0-2.8) Procalcitonin (<0.5) ng/mL Random Vancomycin (10-40) ug/mL SARS-CoV-2 (PCR) (Negative) 03/11/22 03/11/22 03/11/22 Range/Units 07:40 07:40 07:40 WBC 6.1 (4.5-11.0) X10^3/uL RBC 2.72 L (4.5-5.9) X10^6/uL Hgb 8.7 L (13.5-17.5) g/dL Hct 25.9 L (41-53) % MCV 95.4 (80-100) fL MCH 31.9 (26-34) PG MCHC 33.4 (30-36) % RDW 16.0 H (11.6-14.8) % Plt Count 150 (150-400) X10^3/uL Neut % (Auto) 73.8 (50-75) % Lymph % (Auto) 4.5 L (25-40) % Leake % (Auto) 6.5 (3-14) % Eos % (Auto) 14.9 H (2-4) % Baso % (Auto) 0.3 (0-2) % Neut # (Auto) 4500 (4445-9248) /uL Lymph # (Auto) 300 L (1393-1847) /uL Leake # (Auto) 400 (0-900) /uL Eos # (Auto) 900 H (0-450) /uL Baso # (Auto) 0 (0-100) /uL ESR (0-15) MM/HR ABG pH (7.35-7.45) ABG pCO2 (35-45) mmHg ABG pO2 (80-100) mmHg ABG HCO3 (22-26) mmol/L ABG Total CO2 (21-31) mmol/L ABG O2 Saturation (95-100) % ABG Base Excess (-2-2) mmol/L FiO2 Sodium 138 (137-145) mmol/L Potassium 4.6 (3.4-5.1) mmol/L Chloride 99 (98-107) mmol/L Carbon Dioxide 24 (22-32) mmol/L BUN 77 H (9-20) mg/dL Creatinine 8.25 H* (0.66-1.25) mg/dL Estimated GFR 6 L (>60) mL/min BUN/Creatinine Ratio 9.3 (6-22) Glucose 117 H (80-110) mg/dL Lactate (0.7-2.1) mmol/L Calcium 8.6 (8.4-10.2) mg/dL Total Bilirubin 0.7 (0.2-1.3) mg/dL AST 22 (17-59) IU/L ALT 19 (<50) IU/L Alkaline Phosphatase 73 (38-126) U/L C-Reactive Protein (<1.0) mg/dL Total Protein 6.8 (6.3-8.2) g/dL Albumin 3.7 (3.5-5.0) g/dL Globulin 3.1 (1.7-4.1) g/dL Albumin/Globulin Ratio 1.2 (1.0-2.8) Procalcitonin 0.62 H (<0.5) ng/mL Random Vancomycin (10-40) ug/mL SARS-CoV-2 (PCR) (Negative) 03/12/22 03/12/22 03/12/22 Range/Units 04:55 08:44 08:44 WBC 6.5 (4.5-11.0) X10^3/uL RBC 2.54 L (4.5-5.9) X10^6/uL Hgb 8.1 L (13.5-17.5) g/dL Hct 24.3 L (41-53) % MCV 95.5 (80-100) fL MCH 32.0 (26-34) PG MCHC 33.5 (30-36) % RDW 16.3 H (11.6-14.8) % Plt Count 152 (150-400) X10^3/uL Neut % (Auto) 82.0 H (50-75) % Lymph % (Auto) 5.7 L (25-40) % Leake % (Auto) 6.2 (3-14) % Eos % (Auto) 5.5 H (2-4) % Baso % (Auto) 0.6 (0-2) % Neut # (Auto) 5300 (2389-8523) /uL Lymph # (Auto) 400 L (8756-1213) /uL Leake # (Auto) 400 (0-900) /uL Eos # (Auto) 400 (0-450) /uL Baso # (Auto) 0 (0-100) /uL ESR (0-15) MM/HR ABG pH (7.35-7.45) ABG pCO2 (35-45) mmHg ABG pO2 (80-100) mmHg ABG HCO3 (22-26) mmol/L ABG Total CO2 (21-31) mmol/L ABG O2 Saturation (95-100) % ABG Base Excess (-2-2) mmol/L FiO2 Sodium 138 (137-145) mmol/L Potassium 4.6 (3.4-5.1) mmol/L Chloride 98 (98-107) mmol/L Carbon Dioxide 27 (22-32) mmol/L BUN 64 H (9-20) mg/dL Creatinine 7.34 H (0.66-1.25) mg/dL Estimated GFR 7 L (>60) mL/min BUN/Creatinine Ratio 8.7 (6-22) Glucose 166 H (80-110) mg/dL Lactate (0.7-2.1) mmol/L Calcium 8.5 (8.4-10.2) mg/dL Total Bilirubin 0.5 (0.2-1.3) mg/dL AST 23 (17-59) IU/L ALT 19 (<50) IU/L Alkaline Phosphatase 72 (38-126) U/L C-Reactive Protein (<1.0) mg/dL Total Protein 6.4 (6.3-8.2) g/dL Albumin 3.5 (3.5-5.0) g/dL Globulin 2.9 (1.7-4.1) g/dL Albumin/Globulin Ratio 1.2 (1.0-2.8) Procalcitonin 0.90 H (<0.5) ng/mL Random Vancomycin 11.0 (10-40) ug/mL SARS-CoV-2 (PCR) (Negative) 03/13/22 03/13/22 03/14/22 Range/Units 10:38 10:38 10:22 WBC 7.9 (4.5-11.0) X10^3/uL RBC 2.63 L (4.5-5.9) X10^6/uL Hgb 8.4 L (13.5-17.5) g/dL Hct 25.5 L (41-53) % MCV 97.1 (80-100) fL MCH 32.0 (26-34) PG MCHC 33.0 (30-36) % RDW 16.9 H (11.6-14.8) % Plt Count 153 (150-400) X10^3/uL Neut % (Auto) 78.9 H (50-75) % Lymph % (Auto) 5.5 L (25-40) % Leake % (Auto) 4.0 (3-14) % Eos % (Auto) 11.2 H (2-4) % Baso % (Auto) 0.4 (0-2) % Neut # (Auto) 6200 (8352-5976) /uL Lymph # (Auto) 400 L (6875-3357) /uL Leake # (Auto) 300 (0-900) /uL Eos # (Auto) 900 H (0-450) /uL Baso # (Auto) 0 (0-100) /uL ESR (0-15) MM/HR ABG pH (7.35-7.45) ABG pCO2 (35-45) mmHg ABG pO2 (80-100) mmHg ABG HCO3 (22-26) mmol/L ABG Total CO2 (21-31) mmol/L ABG O2 Saturation (95-100) % ABG Base Excess (-2-2) mmol/L FiO2 Sodium 140 (137-145) mmol/L Potassium 4.5 (3.4-5.1) mmol/L Chloride 101 (98-107) mmol/L Carbon Dioxide 21 L (22-32) mmol/L BUN 71 H (9-20) mg/dL Creatinine 8.34 H* (0.66-1.25) mg/dL Estimated GFR 6 L (>60) mL/min BUN/Creatinine Ratio 8.5 (6-22) Glucose 139 H (80-110) mg/dL Lactate (0.7-2.1) mmol/L Calcium 8.3 L (8.4-10.2) mg/dL Total Bilirubin 0.4 (0.2-1.3) mg/dL AST 27 (17-59) IU/L ALT 21 (<50) IU/L Alkaline Phosphatase 94 (38-126) U/L C-Reactive Protein (<1.0) mg/dL Total Protein 6.6 (6.3-8.2) g/dL Albumin 3.6 (3.5-5.0) g/dL Globulin 3.0 (1.7-4.1) g/dL Albumin/Globulin Ratio 1.2 (1.0-2.8) Procalcitonin 0.98 H (<0.5) ng/mL Random Vancomycin 22.2 (10-40) ug/mL SARS-CoV-2 (PCR) (Negative) 03/14/22 03/14/22 Range/Units 10:22 10:22 WBC 11.0 (4.5-11.0) X10^3/uL RBC 2.49 L (4.5-5.9) X10^6/uL Hgb 7.9 L (13.5-17.5) g/dL Hct 23.9 L (41-53) % MCV 96.0 (80-100) fL MCH 31.7 (26-34) PG MCHC 33.0 (30-36) % RDW 16.4 H (11.6-14.8) % Plt Count 165 (150-400) X10^3/uL Neut % (Auto) 81.2 H (50-75) % Lymph % (Auto) 3.3 L (25-40) % Leake % (Auto) 4.0 (3-14) % Eos % (Auto) 10.6 H (2-4) % Baso % (Auto) 0.9 (0-2) % Neut # (Auto) 9000 H (7507-4356) /uL Lymph # (Auto) 400 L (7279-4381) /uL Leake # (Auto) 400 (0-900) /uL Eos # (Auto) 1200 H (0-450) /uL Baso # (Auto) 100 (0-100) /uL ESR (0-15) MM/HR ABG pH (7.35-7.45) ABG pCO2 (35-45) mmHg ABG pO2 (80-100) mmHg ABG HCO3 (22-26) mmol/L ABG Total CO2 (21-31) mmol/L ABG O2 Saturation (95-100) % ABG Base Excess (-2-2) mmol/L FiO2 Sodium 141 (137-145) mmol/L Potassium 4.8 (3.4-5.1) mmol/L Chloride 101 (98-107) mmol/L Carbon Dioxide 20 L (22-32) mmol/L BUN 79 H (9-20) mg/dL Creatinine 8.61 H* (0.66-1.25) mg/dL Estimated GFR 6 L (>60) mL/min BUN/Creatinine Ratio 9.2 (6-22) Glucose 208 H (80-110) mg/dL Lactate (0.7-2.1) mmol/L Calcium 8.2 L (8.4-10.2) mg/dL Total Bilirubin 0.4 (0.2-1.3) mg/dL AST 24 (17-59) IU/L ALT 23 (<50) IU/L Alkaline Phosphatase 106 (38-126) U/L C-Reactive Protein (<1.0) mg/dL Total Protein 6.5 (6.3-8.2) g/dL Albumin 3.5 (3.5-5.0) g/dL Globulin 3.0 (1.7-4.1) g/dL Albumin/Globulin Ratio 1.2 (1.0-2.8) Procalcitonin 0.81 H (<0.5) ng/mL Random Vancomycin (10-40) ug/mL SARS-CoV-2 (PCR) (Negative) Point of Care Testing Glucose POC 115 MDM Narrative Medical decision making narrative: This is a 72-year-old male with history of type 2 diabetes, is not anticoagulated, has CKD and is a Monday, , and Monday dialysis patient, he denies other significant medical conditions and presents to the emergency department with wound on his right hand 5th digit the distal tip which occurred one week ago. Patient states it started as a pus-filled blister on distal fingertips and it has progressed in to a wound covering the distal 1/3 of his 5th digit, it is edematous with erythema, weeping clear fluid, and he has lymphangitis tracking up his forearm without ability to extend his 5th digit and concern for extensor tenosynovitis. Patient was sent to the emergency d epartment by Dr. Pierre from the walk-in clinic at [facility]. He has a right upper arm fistula which is what is currently used for his dialysis, he also has the left upper arm fistula which has not been used in at least one year. A peripheral IV was placed in his lower forearm on the left. Wound culture was obtained prior to antibiotics. X-ray of his right hand and forearm are negative for osseous erosion, fracture, dislocation, it does show right hand soft tissue swelling on the dorsum. Consultation with Orthopedics at [facility] with Dr. Aldirdge for surgical debridement and admission for tenosynovitis with dialysis. Photos of patient's wounds were shared with the physician, he agrees that this is tenosynovitis and patient needs surgical washout and debridement emergently. There are no beds available at [facility], there are no beds available. Consultation with Dr. Kristina Harris about possible OR washout and debridement with boarding in the emergency department after OR to find a bed at another hospital with dialysis capabilities. She agrees to come and evaluate the patient, and of consultation was placed. Patient was given doxycycline initially in the emergency department when there was no IV access and concern for bilateral upper arm fistulas. IV access was later obtained, and lab work was obtained. Patient is not having leukocytosis although he does have mild anemia without any prior lab work to compare to, hemoglobin of 8.9, hematocrit of 26.3, platelet count of 127, no significant electrolyte abnormalities, sodium 140, potassium of 4.5, creatinine of 7.8 or with a BUN of 58, GFR of seven, lactate of 0.9, CRP is elevated at 18.4 and procalcitonin is elevated at 0.7, COVID PCR is negative, no elevation to his liver enzymes. Wound culture is pending, patient was given IV ceftriaxone, Flagyl, and vancomycin order for pharmacy to dose was placed. Dr. Kristina Harris arrived to the bedside to consent the patient for the operating room. 03/10/22 Dr Zabala 1;45 am Patient is doing well postop. Pain is controlled A.m. labs and antibiotics are ordered Will begin calling for bed placement again early this morning. 03/10/22 Miriam 8am Patient is a 72-year-old male seen evaluated by myself. Postop for flexor tenosynovitis the right pinky. Patient states that the streaking and redness has gone down significantly. Hand is in bandage. He is currently shaking and quite chilled but is afebrile. Surgery note reports multiple areas fluid collection which have now been debrided and drained. Patient is supposed to have dialysis today. Director Transportation is . He is actually to be 84% on room air. He has absolutely no respiratory distress speaking full sentences but there is a good wave on the monitor. He is put on 4 L of oxygen. Chest x-ray is ordered. GENERAL: Awake alert 72-year-old male sitting at edge of bed eating breakfast HEENT: Head atraumatic,EOMI, pupils reactive, face symmetric, moist mucous membranes CARDIOVASCULAR: Regular rate and rhythm without murmurs, rubs or gallops. RESPIRATORY: No respiratory distress breath sounds equal no crackles rales or rhonchi EXTREMITIES: Normal range of motion, no clubbing or edema. Neurovascularly intact NEUROLOGICAL: Alert and oriented x4. SKIN: Right hand is in bandage. No streaking above the bandage. No erythema 1. Flexor tenosynovitis: Postop day 1. Continue antibiotics. May need further washout ortho recommendations. Also fracture of right 5th DIP 2. Chronic kidney disease, dialysis Monday need dialysis today, no bed available at any facility continue working on transfer 3. New onset hypoxia check chest x-ray continue to monitor his probably fluid overload from surgery and antibiotics, need dialysis today Multiple hospitals have been called the entire state is on critical bed shortage. CC states that there are at least 7 other dialysis patients or in more critical condition then are patient with are no dialysis beds. Encouraged us to look other ways for him to get dialysis including his outpatient center. Patient goes to [facility]. Patient is able to get dialysis today but must be there before 3:20pm they close they are not able to extend there hours. I have spoken with Dr. Chavira, who states he is happy to help. He can even give a dose of IV vancomycin with dialysis. He states that patient is chronically hypoxic. He is satting in the 80%. Dr. Chavira request ABG, He has been this way for a very long time. Not sure why. After further discussion with patient he says that he has a home concentrator at home but he does not feel like he needs oxygen so he never uses it. Currently on 4-6 L Significant efforts have been made to arrange for outpatient dialysis. Discussion with hospital staff and administration, who agree that patient does need dialysis and may be discharged to dialysis and returned to the emergency department after dialysis. Unfortunately not able to arrange transport in time before the dialysis center closes. However arrangements have been made for tomorrow. Patient can go to dialysis at 3:00 p.m. to 6:00 p.m. and ambulance has already been set up. 1720 Dr. Noe orthopedics at [facility] has been consulted. Pictures have been sent with patient consent. Hand was wrapped slightly at the time all recommends a DIP amputation at bedside in the ED. 8pm [facility] has NO BEDS available tonight. suggested calling tomorrow Will continue with contingency plan of EMS transfer to and from outpatient dialysis tomorrow while awaiting inpatient bed availability 03/11/22 Miriam 9am Patient remains waiting in the emergency department with IV antibiotics. He remains on 5 L nasal cannula without any respiratory symptoms. He has a plan to go to dialysis today. Culture grew staph. Patient is sleeping he really has no complaints. He is offered pain medication but declines at this time. GENERAL: Alert currently cooperative 72-year-old male HEENT: Head atraumatic,EOMI, pupils reactive, face symmetric, moist mucous membranes CARDIOVASCULAR: Regular rate and rhythm without murmurs, rubs or gallops. RESPIRATORY: Breath sounds equal bilaterally, no wheezes rales or rhonchi. EXTREMITIES: Normal range of motion, no clubbing or edema. Neurovascularly intact NEUROLOGICAL: Alert and oriented x4. SKIN: Right hand tip of finger is actually less necrotic looking today. It is not tender to touch. Dressing remains mostly in place. A/P 1. Flexor tenosynovitis postop day number 2. Continue antibiotics ortho recommendations culture grew Staph aureus stop Flagyl continue vancomycin with dialysis and Rocephin. Orthopedics recommend antibiotics for 1 week. Possible re-washed out next 24 hours with pin for fracture Dr. Harris repeorts if still here on 03/12/22 will go back to OR here at [facility], then possible dc with IV vancomycin with dialysis. NPO after midnight 2. Chronic kidney disease-dialysis today. Possibilities include outpatient arranged at [facility] ED a more he normally goes with return to emergency department versus transfer to [facility]. Patient also remains on multiple hospital list but due to critical bed shortage outpatient dialysis seems to be current and best option 3. Hypoxia. Patient remains on 4-5 L oxygen. Patient is not tachypneic he denies any shortness of breath, according to dialysis center he is always hypoxic 80%. Patient states that he has got oxygen concentrator at home he only uses 2 L if needed. he received Lasix yesterday. He did seem to urinate and respond. On Lasix daily anyway. Possible fluid overload from recent operation and multiple IV antibiotics. Patient continues to be hypoxic he had a CT angio today seeing is of is going to dialysis. CT angio showed pleural effusions. And no pulmonary embolism. Despite efforts from yesterday to set up transportation to and from dialysis. Unfortunately transportation was an hour and half. Patient successfully did go to dialysis for about 2 hours and he returned at baseline. signed out to Dr. Zabala 03/12 4am Bed was not availalbe at [facility] due to nephrology provider capacity tonight. Physical bed is being held. Request to call again after 9am to try and facilitate transfer 03/12/22: Patient seen independently evaluated by myself. Patient signed out to myself by Dr. Zabala. Patient has tenosynovitis of his upper extremity he is postop day 3 with reported plan for patient to return to the OR today. Will consult with Dr. Harris with Orthopedic surgery. He did have his dialysis yesterday with a ship and return to our facility due to critical bed shortage th ere was no other option available patient was unable to be transferred. Patient seen he was currently sitting on the commode in the room appears well otherwise. His main complaint was his tailbone hurting and that his bed was uncomfortable. He did fall on his buttocks and asked if we could evaluate his coccyx and x-ray of coccyx sacrum was obtained. Patient's antibiotics were reviewed he is on vancomycin trough was ordered and level was obtained. Did discuss based on his sensitivities he is sensitive for vanco and based on the fact that he is here and boarding and unable to be transferred this was felt to be the best choice and probably the least amount of total fluid compared to other options. Patient has not had any labs today CBC, CMP and procalcitonin were ordered. Outside facilities were re-contacted again to see about availability. Dr Scales: overnight 03/12-03/13 received turned over. Reviewed patient's history and physical exam. Patient has been stable overnight. No issues. Care turned over to Dr. Jennings to follow-up to continue to disposition. Discharge Plan Departure Patient Disposition: Home Clinical Impression: Cellulitis, Tenosynovitis, Anemia due to chronic kidney disease, on chronic dialysis, Thrombocytopenia, Dialysis patient Instructions: Amputation -- General Overview, DI for Finger Flexor Tendon Injury Activity Restrictions/Additional Instructions: You have a flexor tenosynovitis He will receive antibiotics cefazolin with her dialysis as follow-up Monday 2 g, 2 g, Monday 3 g, this will go on for approximately 6 weeks You will need to follow up with Dr. Marie, infectious disease,within 1-2 weeks You will need labs done and Monday including CBC, liver panel, CRP and those results need to be faxed to [phone] You will need dressing changes every other day with home health care for dressing changes You will need to follow up with Dr. Harris THIS WEEK ON WEDNESDAY--CALL OFFICE TODAY Please continue all medications as previously prescribed Please return to emergency department if you should have any increasing pain, fever swelling or new or worsening symptoms Prescriptions: No Action minoxidil 2.5 mg tablet 2 tab PO SEEINSTR Rx Instructions: on dialysis days (, mon) tamsulosin 0.4 mg capsule 1 cap PO DAILY furosemide 80 mg tablet 2 tab PO DAILY Rx Instructions: on dialysis days (, mon) take after dialysis pantoprazole 40 mg tablet,delayed release (DR/EC) 1 tab PO DAILY ergocalciferol (vitamin D2) [Vitamin D2] 1,250 mcg (50,000 unit) capsule 1 cap PO WEEKLY Label Comments: TAKE 1 CAPSULE BY MOUTH ONCE A WEEK timolol maleate 0.5 % drops 1 drp EYE-BOTH DAILY losartan 100 mg tablet 1 tab PO DAILY finasteride 5 mg tablet 1 tab PO DAILY dorzolamide 2 % drops 1 drp EYE-BOTH DAILY Referrals: Blanquita Marie MD [Non-Staff] - Gustavo Teixeira MD [Primary Care Provider] - Kristina Harris MD [Physician] - Visit Report Forms: Patient Portal/API
[2022-03-09] MEDS: TET,DIPH,PERTUSS(ACELL),VAC/PF 0.5 ML SYRINGE IM (16:38)
[2022-03-09] MEDS: DOXYCYCLINE HYCLATE 100 MG TABLET PO (16:38)
[2022-03-09 17:08] LABS: COVID19 -Nasal RAPID Negative (Negative)
[2022-03-09 17:14] LABS: Add Manual Diff / Slide Review NO; Basophils Absolute Auto 0 /uL (0-100); Basophils Percent Auto 0.3 % (0-2); Eosinophils Absolute Auto 800 /uL (0-450); Eosinophils Percent Auto 10.7 % (2-4); Hematocrit 26.3 % (41-53); Hemoglobin 8.9 g/dL (13.5-17.5); Lymphocytes Absolute Auto 500 /uL (1100-4500); Lymphocytes Percent Auto 7.2 % (25-40); Mean Corpuscular HGB Conc 33.8 % (30-36); Mean Corpuscular Hemoglobin 32.1 PG (26-34); Monocytes Absolute Auto 300 /uL (0-900); Monocytes Percent Auto 3.7 % (3-14); Neutrophils Absolute Auto 5700 /uL (1500-7000); Neutrophils Percent Auto 78.1 % (50-75); Platelet Count 127 X10^3/uL (150-400); Red Blood Cell Count 2.77 X10^6/uL (4.5-5.9); Red Cell Distribution Width 16.6 % (11.6-14.8); White Blood Cell Count 7.3 X10^3/uL (4.5-11.0)
[2022-03-09 17:25] LABS: Lactate (Lactic Acid) 0.9 mmol/L (0.7-2.1)
[2022-03-09 17:26] LABS: Alanine Aminotransferase 17 IU/L (<50); Albumin 3.7 g/dL (3.5-5.0); Albumin Globulin Ratio 1.3 (1.0-2.8); Alkaline Phosphatase 72 U/L (38-126); Aspartate Aminotransferase 21 IU/L (17-59); Bilirubin Total 0.7 mg/dL (0.2-1.3); Blood Urea Nitrogen 58 mg/dL (9-20); Calcium 8.6 mg/dL (8.4-10.2); Carbon Dioxide 29 mmol/L (22-32); Chloride 97 mmol/L (98-107); Globulin 2.8 g/dL (1.7-4.1); Glucose 141 mg/dL (80-110); HEMOLYSIS < 15 (0-50); Potassium 4.5 mmol/L (3.4-5.1); Sodium 140 mmol/L (137-145); Total Protein 6.5 g/dL (6.3-8.2)
--- NOTE | 2022-03-09 17:26 | PC.NURSE ---
Patient has low O2 sat. Denies any shortness of breath or history of the same. [employer] DEVELOPMENT ENGINEER aware, patient placed on 2L O2 NC.
[2022-03-09] MEDS: cefTRIAXone 1,000 MG in SODIUM CHLORIDE 0.9% 100 ML 200 MG IV (17:38)
[2022-03-09 17:39] LABS: BUN Creatinine Ratio 7.4 (6-22); Estimated Glomerular Filt Rate 7 mL/min (>60)
[2022-03-09 17:40] LABS: C-Reactive Protein Quant 18.4 mg/dL (<1.0)
[2022-03-09 17:52] LABS: Erythrocyte Sedimentation Rate 88 MM/HR (0-15)
[2022-03-09] MEDS: metroNIDAZOLE 500 MG/100 ML PIGGYBACK 100 MG IV (18:24)
[2022-03-09] MEDS: HYDRALAZINE 20 MG/ML VIAL 10 MG IV (19:07)
[2022-03-09] MEDS: HYDROCODONE/ACET 5/325 TABLET 1 TAB PO (19:09)
[2022-03-09] MEDS: ACETAMINOPHEN 325 MG TABLET 650 MG PO (19:09)
--- NOTE | 2022-03-09 20:10 | P.HP_ITS ---
History of Present Illness History of Present Illness Date Patient Seen: 03/09/22 Time Patient Seen: 20:11 Date of Onset of Symptoms: 02/28/22 Chief complaint: Infection on right hand Narrative: 72-year-old gentleman with a 6 year history of dialysis for renal failure who injured his right hand a little more than a week ago. He started to slip and fall and he reached out his right hand to catch himself. He said that he jammed his right finger. He noted that he can Uphold the nail off on the right finger in her the tip of it. He lives in an assisted living situation and the nurse there helped him bandage it up. He then had it seen by several other practitioners and we bandaged. He noted that it was getting progressively a little bit worse. He notes that it is markedly worse over the last couple of days. He has been getting his regular dialysis. He went to an urgent care and they referred him to the emergency room. He was seen at [facility] where they recommended that he come to [facility] for evaluation. He is scheduled for his regular dialysis tomorrow. He has noted some fevers and chills and progressive worsening pain of his right finger. Patient History Family & Social History Safety & Behavioral: Feels Safe in Current Yes Environment Been Physically Hurt or No Threatened By a Person Tobacco & Substance use: Smoking Status Former smoker Substance Use Type does not use Meds Home Medications and Allergies Home Medications Medication Instructions Recorded Confirmed Type dorzolamide 2 % eye drops 1 drp EYE-BOTH DAILY 03/09/22 03/09/22 History ergocalciferol (vitamin D2) 1,250 1 cap PO WEEKLY 03/09/22 03/09/22 History mcg (50,000 unit) capsule (Vitamin D2) finasteride 5 mg tablet 1 tab PO DAILY 03/09/22 03/09/22 History furosemide 80 mg tablet 2 tab PO DAILY 03/09/22 03/09/22 History losartan 100 mg tablet 1 tab PO DAILY 03/09/22 03/09/22 History minoxidil 2.5 mg tablet 2 tab PO SEEINSTR 03/09/22 03/09/22 History pantoprazole 40 mg tablet,delayed 1 tab PO DAILY 03/09/22 03/09/22 History release tamsulosin 0.4 mg capsule 1 cap PO DAILY 03/09/22 03/09/22 History timolol maleate 0.5 % eye drops 1 drp EYE-BOTH DAILY 03/09/22 03/09/22 History Allergies Allergy/AdvReac Type Severity Reaction Status Date / Time No Known Drug Allergies Allergy Verified 03/09/22 16:32 Review of Systems Review of Systems Narrative: Has noted he has a 6 year history of dialysis. He does note some numbness in bilateral in upper and lower extremities, he is right-hand dominant. Had some mild fevers and chills, he does not note significant recent problems with his heart or lungs, he has a shunt in his right arm. He notes that he has noticed some erythema which is extending up his right arm and some increased swelling in his right arm. He denies any medication allergies. He does take an oral hypoglycemic. He notes that his sugars usually run in the 130s but he rarely checks them. Exam Vital Signs (past 8 hours): - 03/09/22 13:22 03/09/22 17:04 03/09/22 17:16 Temperature 98.4 F Pulse Rate 71 85 Respiratory Rate 16 Blood Pressure 161/69 H 205/86 H Pulse Oximetry 93 86 L Oxygen Delivery Method Room Air Oxygen Flow Rate 03/09/22 17:16 03/09/22 17:30 03/09/22 17:30 Temperature Pulse Rate 78 79 Respiratory Rate Blood Pressure 207/93 H Pulse Oximetry 86 L 96 Oxygen Delivery Method Nasal Cannula Oxygen Flow Rate 2 03/09/22 19:07 03/09/22 19:36 Temperature Pulse Rate 86 89 Respiratory Rate Blood Pressure 211/94 H 151/93 H Pulse Oximetry Oxygen Delivery Method Oxygen Flow Rate Oxygen Delivery Method Nasal Cannula Oxygen Flow Rate 2 Narrative Exam Narrative: He is alert he is oriented is neck is supple his lungs are clear cor shows a slightly irregular rhythm he has least a 2/6 systolic ejection murmur abdomen is slightly obese but he does have bowel sounds, his right upper extremity has a shunt in his right arm, he has moderate swelling in the right forearm there is no crepitus consistent with gas formation, there is some slight epitrochlear nodes, he has marked swelling of the right small finger there is an open wound on the dorsum of his finger with some purulence finger tip is slightly purple is but there is some capillary refill stick crease sensation into the right small finger there is significant moderate swelling along the flexor surface, there is pain with attempted range of motion of his right finger small finger, there is no soft moderate which there is more superficial, he can move his index middle and ring finger with with a some generalized stiffness of the right hand, there is some skin loss on the dorsum of the right small finger and slight deformity distal to the DIP joint Objective Labs Result Diagrams: 03/09/22 16:29 03/09/22 16:29 Labs: Laboratory Results - last 24 hr 03/09/22 03/09/22 03/09/22 14:13 16:29 16:29 WBC 7.3 RBC 2.77 L Hgb 8.9 L Hct 26.3 L MCV 95.0 MCH 32.1 MCHC 33.8 RDW 16.6 H Plt Count 127 L Neut % (Auto) 78.1 H Lymph % (Auto) 7.2 L Borden % (Auto) 3.7 Eos % (Auto) 10.7 H Baso % (Auto) 0.3 Neut # (Auto) 5700 Lymph # (Auto) 500 L Borden # (Auto) 300 Eos # (Auto) 800 H Baso # (Auto) 0 ESR Sodium 140 Potassium 4.5 Chloride 97 L Carbon Dioxide 29 BUN 58 H Creatinine 7.84 H* Estimated GFR 7 L BUN/Creatinine Ratio 7.4 Glucose 141 H Lactate Calcium 8.6 Total Bilirubin 0.7 AST 21 ALT 17 Alkaline Phosphatase 72 C-Reactive Protein Total Protein 6.5 Albumin 3.7 Globulin 2.8 Albumin/Globulin Ratio 1.3 Procalcitonin 0.70 H SARS-CoV-2 (PCR) Negative 03/09/22 03/09/22 03/09/22 16:29 16:29 16:29 WBC RBC Hgb Hct MCV MCH MCHC RDW Plt Count Neut % (Auto) Lymph % (Auto) Borden % (Auto) Eos % (Auto) Baso % (Auto) Neut # (Auto) Lymph # (Auto) Borden # (Auto) Eos # (Auto) Baso # (Auto) ESR 88 H Sodium Potassium Chloride Carbon Dioxide BUN Creatinine Estimated GFR BUN/Creatinine Ratio Glucose Lactate 0.9 Calcium Total Bilirubin AST ALT Alkaline Phosphatase C-Reactive Protein 18.4 H Total Protein Albumin Globulin Albumin/Globulin Ratio Procalcitonin SARS-CoV-2 (PCR) Assessment & Plan Assessment and plan (1) Cellulitis: Status: Acute (2) Tenosynovitis: Status: Acute (3) Chronic kidney disease with end stage renal failure on dialysis: Status: Acute (4) Abscess of hand including fingers: Status: Acute (5) Diabetes 1.5, managed as type 2: Status: Acute Plan Norris has a severe right hand infection. He has some ischemia of his right small finger. There is obvious purulence drainage from the right finger and some evidence of fusiform swelling. He also has evidence of cellulitis with lymphangitis and some proximal streaking. He has some evidence of infection also at the base of his index and middle finger. He is chronically on renal d ialysis. I was asked to consult on this patient recognizing that [facility] does not have the capacity for inpatient dialysis. The emergency room had contacted multiple tertiary care centers who have the possibility of providing the surgical hand care for the patient as well as inpatient IV a ntibiotics and dialysis. Unfortunately there were no beds available at any of the facilities contacted. The patient was held in the emergency room awaiting potential bed opening and transfer. The emergency room called me and asked me if I could do irrigation and debridement and surgical treatment to drain his active infection while they continued to search for a facility that has the capacity for inpatient IV antibiotics, inpatient dialysis, and Surgical Services. The patient has a severe infection of his right hand. I have recommended irrigation and debridement. I told him that we will specifically work to drain the infection from his small finger and make sure he has adequate drainage of his hand. He has already been given an IV dose of vancomycin. The extremely serious nature of the problem with him having diabetes, a hand infection, and chronic renal failure with dialysis was discussed in detail with him today. Nature of the procedure options risks benefits and complications were discussed in detail. I told him that I think it is unlikely that I will need to do a small finger amputation. I think I likely can improve his condition with isolated irrigation and debridement. I did explain to him that he may need secondary procedures for additional irrigation and debridement depending upon his response to the surgical treatment antibiotics and medical support. Options risks benefits and complications were discussed in detail. He is going to be taken to the operating room on an emergent basis. The emergency room is going to continue to search for a facility that has the options of inpatient dialysis, IV antibiotics and surgical care for transfer when a bed is available. Time Spent With Patient Critical Care time: I spent a total of [] minutes of critical care time on this patient's care today; this time is exclusive of procedural time.
--- NOTE | 2022-03-09 20:26 | PC.NURSE ---
Patient to surgery at this time in wheelchair with OR nurse. Report given.
--- NOTE | 2022-03-09 20:32 | P.OP_ITS ---
Operative Date/Time/Diagnoses Date of procedure: 03/09/22 Time of procedure: 20:45 Pre-op diagnosis: Right hand infection Post-op diagnosis: same Procedure & Clinicians Procedure: Irrigation and excisional debridement of her right hand removing some skin and subcutaneous tissues with opening on the right small finger dorsum volar and right palm index and middle finger volar surface, irrigation and debridement 5th finger flexor tendon sheath Same procedure as scheduled: Yes Indications: This is a 72-year-old gentleman with a severe right hand infection is brought to the operating room for as severe right hand diabetic infection pretty dominantly being in the small finger Surgeon: Kristina Harris Anesthesia Type: General Operative Notes Findings: Purulent material on the dorsum of the hand, slight necrotic tissue, intact extensor tendon, open fracture into the distal phalanx with purulent material, purulent material in the 5th finger flexor tendon sheath, superficial infection at the base of the index and middle finger no deep pus. Slightly in purplish discoloration of the 5th finger but some capillary refill. Closure Type: not applicable Specimen(s): other (Multiple cultures) Estimated Blood Loss (mL): 50 Blood products transfused: none Procedure in detail: Patient was brought to the operating room. He underwent induction of a general anesthesia. His finger was checked with fluoroscopy. It was noted that he had a fracture of his distal phalanx of his 5th finger. His right upper extremity was prepped and draped in standard sterile fashion. Tourniquet was placed but not used. An incision was made on the dorsum of his right small finger. Dissec tion was carried out through skin and subcutaneous tissues. Some necrotic skin and subcutaneous tissues were carefully debrided. There was gross purulence material on the dorsum of the finger. It was meticulously irrigated and a small amount of necrotic tissue was debrided. Deep cultures were sent. The 5th finger did appear to be slightly necrotic appearing at the tip. Had decreased capillary refill but it was felt to be viable. Next incision was also made on the volar surface. Dissection was carried out down to the skin and subcutaneous tissues. I specifically mated incision distally at about the 8th 4 luther. Dissection was carried out down to the flexor tendon sheath. There was purulent material in the flexor tendon sheath distally at the A4 luther. Next an incision was made proximal to the A1 luther. Angio casts were then placed along the flexor tendon sheath of the 5th finger both proximal to the A1 luther and distal Maria De Jesus along the A4 luther. I then meticulously irrigated through the flexor tendon sheath both antegrade and retrograde. Deep cultures were taken from the flexor tendon sheath. There was moderate purulent material. An incision was also made at the base of the index and middle finger in the region the A1 luther. There was moderate swelling in that region with a bull bullae Dissection was carried out to its down through skin and subcutaneous tissues. Cultures were sent from the dorsum of the finger, palmar aspect of the small finger, and base of the index and middle finger. All the wounds were meticulously irrigated with normal saline. They were packed with a small Nu Gauze. Marcaine was carefully injected. The wound was dressed sterilely with 4x4s sterile cast padding and the patient was placed in a splint which was wrapped with a bias cut stockinette. Patient tolerated the procedure well. He was transferred to recovery room in satisfactory condition. Complications none. Complications: none Post-operative Condition: stable Disposition: Acute Care Plan for aftercare: IV antibiotics. Transfer to a hospital that has inpatient dialysis, inpatient IV antibiotics, and Surgical Services. Dressing change as needed right hand. Possible serial debridement.
--- NOTE | 2022-03-09 21:26 | PC.NURSE ---
pt still in OR
[2022-03-09] MEDS: BUPIVACAINE 0.5% (PF) VIAL 30 ML INJ (21:42)
[2022-03-09] MEDS: SODIUM CHLORIDE 0.9% 1,000 ML, GENTAMICIN 80 MG IRR (21:43)
[2022-03-09] MEDS: VANCOMYCIN 2,000 MG/400 ML PIGGYBACK 200 MG IV (21:45)
--- NOTE | 2022-03-09 21:56 | SUR.OPER ---
Supine on padded OR bed, head on pillow, left arm secured on padded arm boards at <90 degrees abduction, right arm on padded arm board extention and in control of the Surgeon. legs uncrossed, safety belt at thigh, tape over blanket over lower legs.
--- NOTE | 2022-03-09 23:07 | SUR.PHASEI ---
Dr Harris called and confirmed that pinkie finger was dusky pre-op and remained dusky post-op which was expected. Finger warm with good cap refill at this time. No new orders at this time.
--- NOTE | 2022-03-09 23:44 | SUR.PHASEI ---
Pt transferred to ED room 10 in bed on 3L NC oxygen with Joanne DEVINE. Pt awake, alert, taking ice chips and talking about surgery. Denies pain. SBAR repot at bedside to Christine Devine including dressing and finger assessment, capillary refill and update from Dr Harris. Pt returned with belongings. Lidya care done prior to transfer due to small accident in OR.
--- NOTE | 2022-03-09 23:48 | PC.NURSE ---
pt received drowsy but rouses with minimal stimuli, oriented, dressing to right hand dry and intact, with circulation checks good, hand elevated on pillow, IV to left wrist intact with vancomycin infusing, no redness or swelling noted at site.
[2022-03-09] MEDS: LACTATED RINGERS 1,000 ML 42 ML IV (23:49)
--- NOTE | 2022-03-09 23:55 | SUR.PHASEI ---
Dr Mancia's PACU order discontinued per MD request, policy and due to orders entered after Surgeon and not automatically stopped per routine.
[2022-03-10] VITALS (54 sets, daily range): BP systolic 119–195; BP diastolic 63–93; PULSE 49–112; RESP 17; O2SAT 76–99
[2022-03-10 08:32] LABS: Add Manual Diff / Slide Review NO; Basophils Absolute Auto 0 /uL (0-100); Basophils Percent Auto 0.2 % (0-2); Eosinophils Absolute Auto 800 /uL (0-450); Eosinophils Percent Auto 11.3 % (2-4); Hematocrit 27.5 % (41-53); Hemoglobin 9.2 g/dL (13.5-17.5); Lymphocytes Absolute Auto 200 /uL (1100-4500); Lymphocytes Percent Auto 2.3 % (25-40); Mean Corpuscular HGB Conc 33.3 % (30-36); Mean Corpuscular Hemoglobin 31.9 PG (26-34); Mean Corpuscular Volume 95.6 fL (80-100); Monocytes Absolute Auto 500 /uL (0-900); Monocytes Percent Auto 6.3 % (3-14); Neutrophils Absolute Auto 5800 /uL (1500-7000); Neutrophils Percent Auto 79.9 % (50-75); Platelet Count 130 X10^3/uL (150-400); Red Blood Cell Count 2.87 X10^6/uL (4.5-5.9); Red Cell Distribution Width 16.4 % (11.6-14.8); White Blood Cell Count 7.2 X10^3/uL (4.5-11.0)
--- NOTE | 2022-03-10 08:39 | DI.RAD.S_ITS ---
PROCEDURE: XR CHEST 1V INDICATIONS: short of breath TECHNIQUE: One view of the chest was acquired. COMPARISON: [facility], CR, XR CHEST 1 VIEW, 03/04/2021, 17:11. [facility], CT, CT CHEST WITHOUT CONTRAST, 03/10/2021, 6:55. FINDINGS: Surgical changes and devices: Right IJ dual lumen central venous catheter with the tip projecting at the lower 3rd of the SVC, new. Lungs and pleura: Mild opacity in the left mid lung field. Mildly prominent pulmonary markings. Blunting of the left costophrenic angle. No pneumothorax. Mediastinum: Mediastinal contours appear normal. Heart size appears prominent. Bones and chest wall: No suspicious bony lesions. Overlying soft tissues appear unremarkable. IMPRESSION: Right IJ central venous catheter with the tip projecting at the lower 3rd of the SVC. Suspect pulmonary vasculature engorgement and right pleural effusion. Opacity in the left mid lung field. This could represent atelectasis, pleural fluid at the fissure, or pneumonia. Dictated by: Javi Ybarra M.D. on 03/10/2022 at 9:01 Approved by: Javi Ybarra M.D. on 03/10/2022 at 9:04
[2022-03-10 08:46] LABS: Alanine Aminotransferase 17 IU/L (<50); Albumin 3.9 g/dL (3.5-5.0); Albumin Globulin Ratio 1.2 (1.0-2.8); Alkaline Phosphatase 64 U/L (38-126); Aspartate Aminotransferase 18 IU/L (17-59); BUN Creatinine Ratio 7.7 (6-22); Bilirubin Total 0.8 mg/dL (0.2-1.3); Blood Urea Nitrogen 65 mg/dL (9-20); Calcium 8.7 mg/dL (8.4-10.2); Carbon Dioxide 22 mmol/L (22-32); Chloride 98 mmol/L (98-107); Estimated Glomerular Filt Rate 6 mL/min (>60); Globulin 3.2 g/dL (1.7-4.1); Glucose 138 mg/dL (80-110); HEMOLYSIS < 15 (0-50); Potassium 4.6 mmol/L (3.4-5.1); Sodium 138 mmol/L (137-145); Total Protein 7.1 g/dL (6.3-8.2)
--- NOTE | 2022-03-10 08:58 | PC.NURSE ---
Critical lab reported to DR Pineda Creatinine 8.39
--- NOTE | 2022-03-10 09:08 | PC.NURSE ---
Patient went to the bathroom salvador wheelchair and when back in bed O2 was 84% room air. Patient was put on 4L NC and is now up to 93% O2.
[2022-03-10] MEDS: metroNIDAZOLE 500 MG/100 ML PIGGYBACK 100 MG IV ×2 (09:39→19:34)
[2022-03-10] MEDS: FUROSEMIDE 40 MG/4 ML VIAL IV (09:47)
[2022-03-10] MEDS: cefTRIAXone 2,000 MG in SODIUM CHLORIDE 0.9% 100 ML 200 MG IV (10:55)
--- NOTE | 2022-03-10 11:21 | P.PN_ITS ---
Subjective Subjective Date Patient Seen: 03/10/22 Time Patient Seen: 11:22 Interval history: He notes that he is having some left hand pain in comparison to yesterday. He is having some difficulty with shortness of breath. There is still working on finding a bet that has a possibility for inpatient dialysis IV antibiotics and surgical support. He is currently boarding in the emergency room pending placement. Exam Vital Signs (past 8 hours): - 03/10/22 03:30 03/10/22 03:30 03/10/22 04:00 Pulse Rate 68 72 Blood Pressure 146/65 H Pulse Oximetry 76 L 95 Oxygen Delivery Method Oxygen Flow Rate 03/10/22 04:01 03/10/22 04:01 03/10/22 04:30 Pulse Rate 72 Blood Pressure 172/82 H 195/80 H Pulse Oximetry 95 Oxygen Delivery Method Oxygen Flow Rate 03/10/22 04:30 03/10/22 05:00 03/10/22 05:30 Pulse Rate 70 71 73 Blood Pressure Pulse Oximetry 95 98 95 Oxygen Delivery Method Oxygen Flow Rate 03/10/22 06:00 03/10/22 06:01 03/10/22 06:01 Pulse Rate 70 77 Blood Pressure 167/73 H Pulse Oximetry 90 L 90 L Oxygen Delivery Method Oxygen Flow Rate 03/10/22 06:30 03/10/22 06:31 03/10/22 06:31 Pulse Rate 52 L 49 L Blood Pressure 189/68 H Pulse Oximetry 89 L 84 L Oxygen Delivery Method Oxygen Flow Rate 03/10/22 07:00 03/10/22 07:00 03/10/22 07:56 Pulse Rate 81 65 Blood Pressure 189/93 H Pulse Oximetry 95 Oxygen Delivery Method Oxygen Flow Rate 3 03/10/22 07:58 03/10/22 07:58 03/10/22 08:00 Pulse Rate 81 Blood Pressure 119/85 130/63 Pulse Oximetry Oxygen Delivery Method Oxygen Flow Rate 03/10/22 08:00 03/10/22 08:30 Pulse Rate 79 Blood Pressure Pulse Oximetry 93 Oxygen Delivery Method Nasal Cannula Oxygen Flow Rate 4 Oxygen Delivery Method Nasal Cannula Oxygen Flow Rate 4 Narrative Exam Narrative: He is alert he is oriented is pleasant conversant does not appear to be in acute distress, decreased erythema in his right forearm, decreased cellulitis in the right upper extremity, he has a splint in place he has good range of motion in his index middle finger and thumb, his small finger the tip has capillary refill and it does appear to be viable, there is some decreased sensation Objective Labs Result Diagrams: 03/10/22 08:15 03/10/22 08:15 Labs: Laboratory Results - last 24 hr 03/09/22 03/09/22 03/09/22 14:13 16:29 16:29 WBC 7.3 RBC 2.77 L Hgb 8.9 L Hct 26.3 L MCV 95.0 MCH 32.1 MCHC 33.8 RDW 16.6 H Plt Count 127 L Neut % (Auto) 78.1 H Lymph % (Auto) 7.2 L Donley % (Auto) 3.7 Eos % (Auto) 10.7 H Baso % (Auto) 0.3 Neut # (Auto) 5700 Lymph # (Auto) 500 L Donley # (Auto) 300 Eos # (Auto) 800 H Baso # (Auto) 0 ESR Sodium 140 Potassium 4.5 Chloride 97 L Carbon Dioxide 29 BUN 58 H Creatinine 7.84 H* Estimated GFR 7 L BUN/Creatinine Ratio 7.4 Glucose 141 H Lactate Calcium 8.6 Total Bilirubin 0.7 AST 21 ALT 17 Alkaline Phosphatase 72 C-Reactive Protein Total Protein 6.5 Albumin 3.7 Globulin 2.8 Albumin/Globulin Ratio 1.3 Procalcitonin 0.70 H SARS-CoV-2 (PCR) Negative 03/09/22 03/09/22 03/09/22 16:29 16:29 16:29 WBC RBC Hgb Hct MCV MCH MCHC RDW Plt Count Neut % (Auto) Lymph % (Auto) Donley % (Auto) Eos % (Auto) Baso % (Auto) Neut # (Auto) Lymph # (Auto) Donley # (Auto) Eos # (Auto) Baso # (Auto) ESR 88 H Sodium Potassium Chloride Carbon Dioxide BUN Creatinine Estimated GFR BUN/Creatinine Ratio Glucose Lactate 0.9 Calcium Total Bilirubin AST ALT Alkaline Phosphatase C-Reactive Protein 18.4 H Total Protein Albumin Globulin Albumin/Globulin Ratio Procalcitonin SARS-CoV-2 (PCR) 03/10/22 03/10/22 08:15 08:15 WBC 7.2 RBC 2.87 L Hgb 9.2 L Hct 27.5 L MCV 95.6 MCH 31.9 MCHC 33.3 RDW 16.4 H Plt Count 130 L Neut % (Auto) 79.9 H Lymph % (Auto) 2.3 L Donley % (Auto) 6.3 Eos % (Auto) 11.3 H Baso % (Auto) 0.2 Neut # (Auto) 5800 Lymph # (Auto) 200 L Donley # (Auto) 500 Eos # (Auto) 800 H Baso # (Auto) 0 ESR Sodium 138 Potassium 4.6 Chloride 98 Carbon Dioxide 22 BUN 65 H Creatinine 8.39 H* Estimated GFR 6 L BUN/Creatinine Ratio 7.7 Glucose 138 H Lactate Calcium 8.7 Total Bilirubin 0.8 AST 18 ALT 17 Alkaline Phosphatase 64 C-Reactive Protein Total Protein 7.1 Albumin 3.9 Globulin 3.2 Albumin/Globulin Ratio 1.2 Procalcitonin SARS-CoV-2 (PCR) [facility] Social History household members: other Smoking Status: Former smoker alcohol intake: former Assessment & Plan Post-op Postoperative Procedures: Procedures Operation Date: 03/09/22 19:45 Actual Procedure Side Surgeon p Incision and Debridement of right fifth finger flexor tendon sheath, right small finger dorsum volar, right palm index and middle finger Right Kristina Harris MD Postoperative day: 1 Postoperative status narrative: Clinically he is improving Postoperative plan narrative: He needs to continue IV antibiotics. We will check his cultures. He needs to find a place for dialysis and continued IV antibiotics.
[2022-03-10 12:36] LABS: HCO3 ABG 26 mmol/L (22-26); PCO2 ABG 38.3 mmHg (35-45); PO2 ABG 77 mmHg (80-100); TCO2 ABG 27 mmol/L (21-31); pH ABG 7.44 (7.35-7.45)
[2022-03-10 12:37] LABS: Fractionated Inspired Oxygen 40; Oxygen Saturation ABG 96 % (95-100)
--- NOTE | 2022-03-10 13:31 | PC.NURSE ---
We could not arrange ambulance transport for the patient to [facility] in [place] today, so we are working on arranging transport for patient to arrive at an appointment tomorrow (03/11/22) at 1445. His treatment would be from 1445 to 1800 and would be transported back by ambulance company at 1800. The ambulance transportation has not been confirmed yet.
--- NOTE | 2022-03-10 14:34 | PC.NURSE ---
[facility] eta 1330-45 on 03/11/22 for transport to [facility] in [place] for appt at 1445. Pickup arranged at 1800 to transport from dialysis back here to ER. Leyda CHASE from [facility] is aware and gave us the appointment info. Sae at [facility] helped arrange transport.
[2022-03-11] VITALS (28 sets, daily range): BP systolic 149–224; BP diastolic 77–103; PULSE 48–110; RESP 14–20; TEMP 36.8; O2SAT 88–100
[2022-03-11] MEDS: metroNIDAZOLE 500 MG/100 ML PIGGYBACK 100 MG IV (02:28)
--- NOTE | 2022-03-11 05:31 | PC.NURSE ---
Pt accidentally removed IV during his sleep. Pt a difficult IV start, line unobtainable at this time.
[2022-03-11 07:47] LABS: Add Manual Diff / Slide Review NO; Basophils Absolute Auto 0 /uL (0-100); Basophils Percent Auto 0.3 % (0-2); Eosinophils Absolute Auto 900 /uL (0-450); Eosinophils Percent Auto 14.9 % (2-4); Hematocrit 25.9 % (41-53); Hemoglobin 8.7 g/dL (13.5-17.5); Lymphocytes Absolute Auto 300 /uL (1100-4500); Lymphocytes Percent Auto 4.5 % (25-40); Mean Corpuscular HGB Conc 33.4 % (30-36); Mean Corpuscular Hemoglobin 31.9 PG (26-34); Mean Corpuscular Volume 95.4 fL (80-100); Monocytes Absolute Auto 400 /uL (0-900); Monocytes Percent Auto 6.5 % (3-14); Neutrophils Absolute Auto 4500 /uL (1500-7000); Neutrophils Percent Auto 73.8 % (50-75); Platelet Count 150 X10^3/uL (150-400); Red Blood Cell Count 2.72 X10^6/uL (4.5-5.9); White Blood Cell Count 6.1 X10^3/uL (4.5-11.0)
[2022-03-11 08:00] LABS: Alanine Aminotransferase 19 IU/L (<50); Albumin 3.7 g/dL (3.5-5.0); Albumin Globulin Ratio 1.2 (1.0-2.8); Alkaline Phosphatase 73 U/L (38-126); Aspartate Aminotransferase 22 IU/L (17-59); BUN Creatinine Ratio 9.3 (6-22); Bilirubin Total 0.7 mg/dL (0.2-1.3); Blood Urea Nitrogen 77 mg/dL (9-20); Calcium 8.6 mg/dL (8.4-10.2); Carbon Dioxide 24 mmol/L (22-32); Chloride 99 mmol/L (98-107); Estimated Glomerular Filt Rate 6 mL/min (>60); Globulin 3.1 g/dL (1.7-4.1); Glucose 117 mg/dL (80-110); HEMOLYSIS < 15 (0-50); Potassium 4.6 mmol/L (3.4-5.1); Sodium 138 mmol/L (137-145); Total Protein 6.8 g/dL (6.3-8.2)
[2022-03-11 08:16] LABS: Procalcitonin 0.62 ng/mL (<0.5)
--- NOTE | 2022-03-11 09:50 | PM.PNPO.1 ---
Subjective Subjective Date Patient Seen: 03/11/22 Time Patient Seen: 09:50 Interval history: Pt resting comfortably in bed, pain well-controlled. ED team looking for transfer for inpatient care - needs IV antibiotics, monitoring of hand for possible repeat surgery, and dialysis. Exam Vital Signs (past 8 hours): - 03/11/22 04:15 03/11/22 02:00 03/11/22 02:30 Temperature Pulse Rate 73 73 Respiratory Rate Blood Pressure 149/90 H Pulse Oximetry 94 98 Oxygen Delivery Method 03/11/22 03:00 03/11/22 03:30 03/11/22 04:00 Temperature Pulse Rate 72 76 72 Respiratory Rate Blood Pressure Pulse Oximetry 89 L 99 100 Oxygen Delivery Method 03/11/22 04:30 03/11/22 05:00 03/11/22 05:30 Temperature Pulse Rate 72 48 L 72 Respiratory Rate Blood Pressure Pulse Oximetry 100 89 L 99 Oxygen Delivery Method 03/11/22 06:00 03/11/22 06:30 03/11/22 07:00 Temperature Pulse Rate 77 74 89 Respiratory Rate Blood Pressure Pulse Oximetry 97 98 95 Oxygen Delivery Method 03/11/22 07:30 03/11/22 08:00 03/11/22 08:10 Temperature 98.3 F Pulse Rate 77 77 Respiratory Rate Blood Pressure Pulse Oximetry 98 96 Oxygen Delivery Method 03/11/22 08:30 03/11/22 09:00 03/11/22 09:30 Temperature Pulse Rate 75 72 84 Respiratory Rate 14 Blood Pressure Pulse Oximetry 100 100 100 Oxygen Delivery Method Room Air Oxygen Delivery Method Room Air Oxygen Flow Rate 5 Narrative Exam Narrative: AA&O x 3. Dressing and splint removed; pictures of wounds taken by myself to send to Dr Harris and by ED physician to send to accepting facility. Cultures sent during surgery still pending. Distal tip of 5th digit is dusky, but does appear to be viable, there is capillary return and decreased but intact sensation. Incisions were repacked with sterile gauze, and hand was rewrapped with soft dressings. Will leave out of splint at this time. Other fingers and palm of hand are minimally swollen and erythematous; per ED physician and patient, hand and fingers appear to be overall better in appearance. Objective Labs Result Diagrams: 03/11/22 07:40 03/11/22 07:40 Labs: Laboratory Results - last 24 hr 03/10/22 03/11/22 03/11/22 12:26 07:40 07:40 WBC 6.1 RBC 2.72 L Hgb 8.7 L Hct 25.9 L MCV 95.4 MCH 31.9 MCHC 33.4 RDW 16.0 H Plt Count 150 Neut % (Auto) 73.8 Lymph % (Auto) 4.5 L Valley % (Auto) 6.5 Eos % (Auto) 14.9 H Baso % (Auto) 0.3 Neut # (Auto) 4500 Lymph # (Auto) 300 L Valley # (Auto) 400 Eos # (Auto) 900 H Baso # (Auto) 0 ABG pH 7.44 ABG pCO2 38.3 ABG pO2 77 L ABG HCO3 26 ABG Total CO2 27 ABG O2 Saturation 96 ABG Base Excess 2.0 FiO2 40 Sodium 138 Potassium 4.6 Chloride 99 Carbon Dioxide 24 BUN 77 H Creatinine 8.25 H* Estimated GFR 6 L BUN/Creatinine Ratio 9.3 Glucose 117 H Calcium 8.6 Total Bilirubin 0.7 AST 22 ALT 19 Alkaline Phosphatase 73 Total Protein 6.8 Albumin 3.7 Globulin 3.1 Albumin/Globulin Ratio 1.2 Procalcitonin 03/11/22 07:40 WBC RBC Hgb Hct MCV MCH MCHC RDW Plt Count Neut % (Auto) Lymph % (Auto) Valley % (Auto) Eos % (Auto) Baso % (Auto) Neut # (Auto) Lymph # (Auto) Valley # (Auto) Eos # (Auto) Baso # (Auto) ABG pH ABG pCO2 ABG pO2 ABG HCO3 ABG Total CO2 ABG O2 Saturation ABG Base Excess FiO2 Sodium Potassium Chloride Carbon Dioxide BUN Creatinine Estimated GFR BUN/Creatinine Ratio Glucose Calcium Total Bilirubin AST ALT Alkaline Phosphatase Total Protein Albumin Globulin Albumin/Globulin Ratio Procalcitonin 0.62 H [facility] Social History household members: other Smoking Status: Former smoker alcohol intake: former Assessment & Plan Post-op Assessment and plan (1) Abscess of hand including fingers: Assessment and Plan narrative: Will discuss with Dr Harris. Hope to transfer to inpatient facility with dialysis capabilities today. Postoperative Procedures: Procedures Operation Date: 03/09/22 19:45 Actual Procedure Side Surgeon p Incision and Debridement of right fifth finger flexor tendon sheath, right small finger dorsum volar, right palm index and middle finger Right Kristina Harris MD Postoperative day: 2
[2022-03-11] MEDS: cefTRIAXone 2,000 MG in SODIUM CHLORIDE 0.9% 100 ML 200 MG IV (09:56)
[2022-03-11] MEDS: TAMSULOSIN 0.4 MG CAPSULE PO (09:59)
[2022-03-11] MEDS: FUROSEMIDE 100 MG/10 ML VIAL 60 MG IV (09:59)
--- NOTE | 2022-03-11 10:14 | DI.CT.S_ITS ---
PROCEDURE: CT ANGIO CHEST PE PROTOCOL INDICATIONS: hypoxic going to dialysis today TECHNIQUE: After the administration of intravenous contrast, 2 mm thick sections acquired from the pulmonary apices to the posterior costophrenic angles. 3-dimensional maximum intensity projection (MIP) coronal and sagittal reformats were then acquired through the thorax. For radiation dose reduction, the following was used: automated exposure control, adjustment of mA and/or kV according to patient size. COMPARISON: [facility], CT, CT CHEST WITHOUT CONTRAST, 03/10/2021, 6:55. FINDINGS: Image quality: Excellent. Pulmonary arteries: Pulmonary arteries are normal in size, and demonstrate no intraluminal filling defects to suggest central pulmonary embolism. Lungs and pleura: There is diffuse interlobular septal thickening throughout both lungs. Patchy pulmonary opacities are present within the bilateral mid lungs. Geographic ground-glass opacities are present throughout the lungs. There are small low-density pleural effusions bilaterally. Mediastinum: The heart is enlarged. No pericardial effusion. There are multiple shotty mediastinal and hilar lymph nodes, some of which are pathologically enlarged. Tunneled hemodialysis catheter is noted with the tip at the cavoatrial junction. Bones and chest wall: No suspicious bony lesions. Ribs and thoracic spine appear intact throughout. Thyroid gland is unremarkable. No axillary or supraclavicular adenopathy. Abdomen: Visualized upper abdominal solid organs appear normal in the early arterial phase of enhancement. IMPRESSION: 1. No acute pulmonary embolus. 2. Marked pulmonary edema and small pleural effusions consistent with fluid overload. 3. Diffuse patchy pulmonary opacities and hilar and mediastinal adenopathy suggesting multifocal pneumonia. Short interval follow-up is recommended to ensure resolution of the airspace opacities and adenopathy and exclude underlying pulmonary neoplasm. Dictated by: Ivy Salinas M.D. on 03/11/2022 at 10:49 Approved by: Ivy Salinas M.D. on 03/11/2022 at 10:53
[2022-03-11] MEDS: LOSARTAN 50 MG TABLET 100 MG PO (10:37)
[2022-03-11] MEDS: FINASTERIDE 5 MG TABLET PO (11:42)
[2022-03-11] MEDS: minoxidiL 2.5 MG TABLET 5 MG PO (11:42)
--- NOTE | 2022-03-11 14:57 | PC.NURSE ---
Pt left for dialysis with [facility]
--- NOTE | 2022-03-11 15:29 | PC.NURSE ---
Pt left with [facility] for dialysis appt.
--- NOTE | 2022-03-11 18:52 | PC.NURSE ---
Pt returns from dialysis. Given a meal tray. VSS.
[2022-03-11] MEDS: DORZOLAMIDE 2% OPHTH 10 ML 1 DROPS EYE-BOTH (19:00)
[2022-03-11] MEDS: TIMOLOL 0.5% OPHTH 1 DROPS EYE-BOTH (19:04)
[2022-03-11] MEDS: FUROSEMIDE 40 MG TABLET 160 MG PO (19:04)
[2022-03-12] VITALS (45 sets, daily range): BP systolic 74–149; BP diastolic 37–73; PULSE 58–79; RESP 15–30; TEMP 36.7–36.9; O2SAT 91–100
--- NOTE | 2022-03-12 07:43 | DI.RAD.S_ITS ---
PROCEDURE: XR SACRUM COCCYX MIN 2V INDICATIONS: tailbone pain, fall TECHNIQUE: 3 views of the sacrum and coccyx acquired. COMPARISON: [facility], CT, [facility] ([facility]), 05/30/2012, 3:26. FINDINGS: Bones: There is 8 mm posterior displacement of the 3rd coccyx bone relative to the 2nd, however this is unchanged compared to a CT on 05/30/2012. Soft tissues: Visualized bowel gas pattern is normal. No suspicious soft tissue densities. The aorta has atherosclerotic calcifications. IMPRESSION: No acute abnormality of the sacrum and coccyx bone. Dictated by: Jesus Kirkland M.D. on 03/12/2022 at 8:20 Approved by: Jesus Kirkland M.D. on 03/12/2022 at 8:24
[2022-03-12] MEDS: VANCOMYCIN 2,000 MG/400 ML PIGGYBACK 200 MG IV (08:13)
[2022-03-12 08:53] LABS: Add Manual Diff / Slide Review NO; Basophils Absolute Auto 0 /uL (0-100); Basophils Percent Auto 0.6 % (0-2); Eosinophils Absolute Auto 400 /uL (0-450); Eosinophils Percent Auto 5.5 % (2-4); Hematocrit 24.3 % (41-53); Hemoglobin 8.1 g/dL (13.5-17.5); Lymphocytes Absolute Auto 400 /uL (1100-4500); Lymphocytes Percent Auto 5.7 % (25-40); Mean Corpuscular HGB Conc 33.5 % (30-36); Mean Corpuscular Volume 95.5 fL (80-100); Monocytes Absolute Auto 400 /uL (0-900); Monocytes Percent Auto 6.2 % (3-14); Neutrophils Absolute Auto 5300 /uL (1500-7000); Platelet Count 152 X10^3/uL (150-400); Red Blood Cell Count 2.54 X10^6/uL (4.5-5.9); Red Cell Distribution Width 16.3 % (11.6-14.8); White Blood Cell Count 6.5 X10^3/uL (4.5-11.0)
[2022-03-12 09:05] LABS: Alanine Aminotransferase 19 IU/L (<50); Albumin 3.5 g/dL (3.5-5.0); Albumin Globulin Ratio 1.2 (1.0-2.8); Alkaline Phosphatase 72 U/L (38-126); Aspartate Aminotransferase 23 IU/L (17-59); BUN Creatinine Ratio 8.7 (6-22); Bilirubin Total 0.5 mg/dL (0.2-1.3); Blood Urea Nitrogen 64 mg/dL (9-20); Calcium 8.5 mg/dL (8.4-10.2); Carbon Dioxide 27 mmol/L (22-32); Chloride 98 mmol/L (98-107); Estimated Glomerular Filt Rate 7 mL/min (>60); Globulin 2.9 g/dL (1.7-4.1); Glucose 166 mg/dL (80-110); HEMOLYSIS < 15 (0-50); Potassium 4.6 mmol/L (3.4-5.1); Sodium 138 mmol/L (137-145); Total Protein 6.4 g/dL (6.3-8.2)
[2022-03-12] MEDS: TIMOLOL 0.5% OPHTH 1 DROPS EYE-BOTH (09:30)
[2022-03-12] MEDS: LOSARTAN 50 MG TABLET 100 MG PO (09:31)
[2022-03-12] MEDS: TAMSULOSIN 0.4 MG CAPSULE PO (09:31)
[2022-03-12] MEDS: PANTOPRAZOLE DR 40 MG TABLET PO (09:31)
[2022-03-12] MEDS: FINASTERIDE 5 MG TABLET PO (09:32)
[2022-03-12] MEDS: DORZOLAMIDE 2% OPHTH 10 ML 1 DROPS EYE-BOTH (09:33)
[2022-03-12] MEDS: minoxidiL 2.5 MG TABLET 5 MG PO (09:33)
--- NOTE | 2022-03-12 10:33 | PC.NURSE ---
dressing removed by surgeon dr vamshi zelaya, reapplied danelle flores in anticipation of pt going to or.
[2022-03-12] MEDS: cefTRIAXone 2,000 MG in SODIUM CHLORIDE 0.9% 100 ML 200 MG IV (10:38)
--- NOTE | 2022-03-12 10:56 | PM.PNPO.1 ---
Subjective Subjective Date Patient Seen: 03/12/22 Time Patient Seen: 10:58 Interval history: He is currently boarding in the emergency room. He was transported via ambulance to an outpatient dialysis center yesterday and did get at dialysis. He was then returned to the emergency room for additional care. We have contacted multiple hospitals throughout [facility]. Every hospital that was contacted is over censes by a substantial amount and boarding patients in their emergency rooms. He notes adequate pain control for his finger. Exam Vital Signs (past 8 hours): - 03/12/22 08:17 03/12/22 08:17 03/12/22 08:18 Pulse Rate 77 Blood Pressure 74/37 L 77/43 L Pulse Oximetry Oxygen Flow Rate 03/12/22 08:18 03/12/22 08:19 03/12/22 08:19 Pulse Rate 76 72 Blood Pressure 94/55 L Pulse Oximetry Oxygen Flow Rate 03/12/22 08:30 03/12/22 08:47 03/12/22 08:47 Pulse Rate 68 73 Blood Pressure 92/46 L Pulse Oximetry 93 Oxygen Flow Rate 4 03/12/22 09:31 03/12/22 09:00 03/12/22 09:00 Pulse Rate 70 72 Blood Pressure 149/66 H 149/66 H Pulse Oximetry 100 Oxygen Flow Rate 5 03/12/22 09:30 03/12/22 10:00 03/12/22 10:00 Pulse Rate 70 79 Blood Pressure 133/58 L Pulse Oximetry 98 Oxygen Flow Rate 03/12/22 10:30 Pulse Rate 74 Blood Pressure Pulse Oximetry 96 Oxygen Flow Rate Oxygen Delivery Method Nasal Cannula Oxygen Flow Rate 5 Narrative Exam Narrative: HEENT is benign, he was somewhat somnolent initially but then I was able to arouse him and have an extensive discussion. His right upper extremity shows slight decreased erythema in his forearm, the base of his index and middle finger wound is healing there is no active drainage he has excellent range of motion in to his index middle and ring finger. His small finger still has substantial swelling in the small finger. There is erythema but no severe pain or gross fluctuance along the flexor surface, the distal tip of his finger is clearly necrotic and is demarcating. There is some obvious purulent drainage on the dorsum of the finger. There is limited to no capillary refill at the tip of his finger. Objective Labs Result Diagrams: 03/12/22 08:44 03/12/22 08:44 Labs: Laboratory Results - last 24 hr 03/12/22 03/12/22 03/12/22 04:55 08:44 08:44 WBC 6.5 RBC 2.54 L Hgb 8.1 L Hct 24.3 L MCV 95.5 MCH 32.0 MCHC 33.5 RDW 16.3 H Plt Count 152 Neut % (Auto) 82.0 H Lymph % (Auto) 5.7 L [place] % (Auto) 6.2 Eos % (Auto) 5.5 H Baso % (Auto) 0.6 Neut # (Auto) 5300 Lymph # (Auto) 400 L [place] # (Auto) 400 Eos # (Auto) 400 Baso # (Auto) 0 Sodium 138 Potassium 4.6 Chloride 98 Carbon Dioxide 27 BUN 64 H Creatinine 7.34 H Estimated GFR 7 L BUN/Creatinine Ratio 8.7 Glucose 166 H Calcium 8.5 Total Bilirubin 0.5 AST 23 ALT 19 Alkaline Phosphatase 72 Total Protein 6.4 Albumin 3.5 Globulin 2.9 Albumin/Globulin Ratio 1.2 Procalcitonin 0.90 H Random Vancomycin 11.0 PFSH Social History household members: other Smoking Status: Former smoker alcohol intake: former Assessment & Plan Post-op Postoperative Procedures: Procedures Operation Date: 03/09/22 19:45 Actual Procedure Side Surgeon p Incision and Debridement of right fifth finger flexor tendon sheath, right small finger dorsum volar, right palm index and middle finger Right Kristina Harris MD Postoperative day: 3 Postoperative status narrative: The distal tip of his finger is more necrotic than it was previously. The palmar aspect of his hand is improved. I explained to him in detail that I do not think that the distal tip of his finger is not viable. Finger tip appears nonviable from the D IP distally. Postoperative plan narrative: I recommended partial amputation of the 5th or small right finger. The procedure alternatives risks benefits and complications were discussed in detail. We have contacted multiple other facilities. [facility] advised amputation and stated that it would be impossible for them to assume care for the patient at this point. The patient and I had an extensive discussion and he understands that we will attempt to salvage as much of his finger as possible. I also explained to him with his renal dialysis and a staph infection that he did need surgical intervention. We discussed the serious nature of severe infections and the risk for loss of additional length of his finger, finger or hand. We also discussed that infections can be life-threatening. The procedure alternatives risks benefits and complications were discussed in detail. He consents to amputation of the 5th finger as needed. Time Spent With Patient Time with patient: 15-24 minutes
--- NOTE | 2022-03-12 11:10 | PC.NURSE ---
1110 pt going to [facility] with curb worker, for operation on right hand wound, 5th digit pt to return here postop because of need for dialysis outpatient and unable to admit inpatient for that need.
--- NOTE | 2022-03-12 11:16 | PM.OP.1 ---
Operative Date/Time/Diagnoses Date of procedure: 03/12/22 Time of procedure: 11:30 Pre-op diagnosis: Right small finger staph infection with a necrotic distal tip and and open distal phalanx fracture, flexor tenosynovitis right 5th finger Post-op diagnosis: same Procedure & Clinicians Procedure: Amputation right 5th finger at the PIP joint, irrigation and debridement with debridement of necrotic skin, subcutaneous tissue and tendons Same procedure as scheduled: Yes Indications: This is a 72-year-old gentleman on dialysis who fell and sustained an open fracture of his right 5th finger. He lives in the adult family home and was initially treated conservatively with dressings. Ultimately he developed an infection and came to the emergency room for evaluation. He has previously undergone an irrigation and debridement of his finger. He is on IV antibiotics. He has received outpatient dialysis. His finger tip is getting progressively more necrotic. He is now return to the operating room for irrigation and debridement and amputation as needed of the 5th finger Surgeon: Kristina Harris Click Yes if Unassisted: Yes Anesthesia Type: General Operative Notes Findings: Necrotic distal fingertips, purulent material on the dorsum of the finger Closure Type: not applicable Specimen(s): other (Right small finger amputation piece) Applied: drain(s) (Packed with Nu Gauze) Estimated Blood Loss (mL): 50 Blood products transfused: none Procedure in detail: Patient is brought to the operating room. A time-out was performed. His right upper extremities prepped draped standard sterile fashion. He was given IV antibiotics in the emergency room. A tourniquet was applied but not elevated. The distal tip of his right small finger was clearly nonviable. An incision was made along the demarcated line of his skin. An incision was made where there was adequate bleeding. An amputation of the finger tip was performed at the level of the D IP joint. There was purulence material on the dorsum of his small finger. Portion of the extensor tendon and also the distal end of the flexor tendon was debrided pulled distally and shortened. I also placed Angiocath both in the distal wound as well as in the proximal wound at the base of the A1 luther and meticulously irrigated through the flexor tendon sheath. There was no gross purulence proximally. There was some clearly necrotic and infected skin distally. An high resected grossly necrotic tissue back to a bleeding viable edge. Portion of the middle phalanx was shortened. All of the residual soft tissue appeared viable. The wound was meticulously irrigated with normal saline. Some additional necrotic tissue was debrided. The nerves were carefully shortening. The wound was packed open with Nu Gauze. A digital block was performed. The wound was dressed sterilely. Patient tolerated the procedure well and was transferred recovery room in satisfactory condition. Complications: none Post-operative Condition: stable Disposition: other (Return to the emergency room where he is currently reporting awaiting access to dialysis.) Plan for aftercare: Continue IV antibiotics. Continue to work to arrange for adequate dialysis. Dressing changes as needed. Re-evaluation for potential additional surgery as needed.
--- NOTE | 2022-03-12 11:34 | SUR.HOLD ---
After assisting pt to dress in ED room, pt brought via wheelchair to [facility], pt incontinent of stool, cleaned, asked to use BR to finish BM. Pt unsteady when up assisted to BR.
[2022-03-12] MEDS: SODIUM CHLORIDE 0.9% 1,000 ML 21 ML IV (11:55)
--- NOTE | 2022-03-12 12:05 | PC.NURSE ---
Pt away from dept for OR procedure. Rm held during surgery time.
--- NOTE | 2022-03-12 12:32 | SUR.OPER ---
Supine on padded OR bed, head on pillow, left arm secured on padded arm boards at <90 degrees abduction, right arm on padded arm board extention and in control of the Surgeon, legs uncrossed, safety belt at thigh, tape over blanket over lower legs. Gel pad under bilateral heels.
[2022-03-12] MEDS: BUPIVACAINE 0.5% (PF) VIAL 30 ML INJ (12:37)
[2022-03-12] MEDS: SODIUM CHLORIDE 0.9% 1,000 ML, GENTAMICIN 80 MG IRR (12:38)
--- NOTE | 2022-03-12 12:45 | PATH_ITS ---
[facility] Accession Number: [id number] . 01 Material submitted: . finger - PARTIAL RIGHT FIFTH FINGER (SMALL FINGER) . 01 Clinical history: . INFECTION ON RIGHT HAND . 01 Diagnosis: Right Fifth Finger, Partial Amputation: Hemorrhagic necrosis of epidermis and soft tissue with associated acute inflammation, focally extending to soft tissue margin of resection. Bone with changes consistent with acute osteomyelitis, present at bony margin of resection. MRV 03/16/2022 1344 Local . 01 Electronically signed: . Shelby Kaur MD, Pathologist NPI- [id number] . 01 Gross description: . Received in formalin in a specimen container labeled with the patient's name, medical record number, and right small finger - partial, is a finger specimen with attached nail amputated through distal phalanx bone that measures 2.0 x 1.5 x 1.5 cm. The ornelas nail measures 1.5 x 0.7 cm. The resection margin is pink-hernandez and grossly nonviable. With the ventral surface, there is a nonviable, possibly ulcerated area that measures 1.5 x 1.5 cm. The area grossly abuts the resection margin. The resection margin is inked in blue, and specimen is decalcified and serially sectioned perpendicularly to resection margin to reveal centrally located bone surrounded by ornelas-pink soft tissue. Also in the same container is a pink soft tissue fragment that measures 1.0 x 0.5 x 0.4 cm. The specimen licensing representative sections are submitted following decalcification in cassette A1. ([id number]) /MRV 03/15/2022 1215 Local . 01 Pathologist provided ICD-10: L03.90 . 01 CPT . 288734, [id number] Specimen Comment: A courtesy copy of this report has been sent to [phone] Performed at: 01 [facility] [address] [place] [address], [place], [place] [id number] MD Ponce Singh MD Phone: [phone]
--- NOTE | 2022-03-12 13:39 | SUR.PHASEI ---
Pt stable, RN s in code stroke so not available for report, will call when able. Pt's R pupil large and nonreactive, pt states this is normal and from a previous injury, Upper and lower extremities all equal in movement and strength except for R hand due to surgical procedure.
--- NOTE | 2022-03-12 13:53 | PC.NURSE ---
report given from OR. pt ready for transfer. Amputated finger from cuticle and irrigated with Gentamycin. packing being sent with patient and currently has with gauze and acewrap. RN states the bandages are sturdy. VS WNL 94-96 on 4L O2, given Propofol, 100mcg Fent, ephedrine and 150ml NS during procedure. no N/V after 100cc PO ice chips. pt returning to OR 1353
--- NOTE | 2022-03-12 14:08 | SUR.PHASEI ---
RENA Gasca called for report, report given, pt transported to ER room 10 via stretcher on . Use of bed alarm discussed.
--- NOTE | 2022-03-12 16:53 | P.CONS_ITS ---
History of Present Illness Consult details Date Patient Seen: 03/12/22 Time Patient Seen: 16:00 Chief complaint: Infection on right hand Narrative: This is a 72-year-old male with a past medical history of end-stage renal disease on hemodialysis, presumably secondary to diabetes, chronic hypoxemic respiratory failure of uncertain etiology on 4 L at home, hypertension, and BPH who initially presented 3 days ago to the emergency room after a slip and fall that resulted in a part of the nail coming off. The swelling and redness continued to get worse and the patient came to the emergency room. Initially he was attempted to be transferred to a tertiary care center given his need for hemodialysis which is not available at this facility, and orthopedic care. Despite multiple attempts at transfer, including with this state transfer center no facility was able to be found. Orthopedic surgery initially took him for a washout, with continued worse being of infection yesterday they performed an amputation of his 5th finger on the right. He is still pending transfer to a tertiary care center at this time. He has received outpatient dialysis with coordination from the ER providers, most recently yesterday where he received approximately a half session, though specifics are not available from the patient or ER providers and the outpatient center is currently closed. After his amputation today, the anesthesiologist asked the hospitalist to assist with the management of this patient given the hypoxia and medical issues while the patient is in the emergency room awaiting transfer. PSH: AV fistula formation, hand washout and now amputation yesterday. Meds Home Medications and Allergies Home Medications Medication Instructions Recorded Confirmed Type dorzolamide 2 % eye drops 1 drp EYE-BOTH DAILY 03/09/22 03/09/22 History ergocalciferol (vitamin D2) 1,250 1 cap PO WEEKLY 03/09/22 03/09/22 History mcg (50,000 unit) capsule (Vitamin D2) finasteride 5 mg tablet 1 tab PO DAILY 03/09/22 03/09/22 History furosemide 80 mg tablet 2 tab PO DAILY 03/09/22 03/09/22 History losartan 100 mg tablet 1 tab PO DAILY 03/09/22 03/09/22 History minoxidil 2.5 mg tablet 2 tab PO SEEINSTR 03/09/22 03/09/22 History pantoprazole 40 mg tablet,delayed 1 tab PO DAILY 03/09/22 03/09/22 History release tamsulosin 0.4 mg capsule 1 cap PO DAILY 03/09/22 03/09/22 History timolol maleate 0.5 % eye drops 1 drp EYE-BOTH DAILY 03/09/22 03/09/22 History Allergies Allergy/AdvReac Type Severity Reaction Status Date / Time No Known Drug Allergies Allergy Verified 03/09/22 20:39 Review of Systems Review of Systems Narrative: All other systems reviewed with the patient and are negative unless otherwise stated. Exam Vital Signs (past 8 hours): - 03/12/22 09:31 03/12/22 09:00 03/12/22 09:00 Temperature Pulse Rate 70 72 Respiratory Rate Blood Pressure 149/66 H 149/66 H Pulse Oximetry 100 Oxygen Delivery Method Oxygen Flow Rate 5 03/12/22 09:30 03/12/22 10:00 03/12/22 10:00 Temperature Pulse Rate 70 79 Respiratory Rate Blood Pressure 133/58 L Pulse Oximetry 98 Oxygen Delivery Method Oxygen Flow Rate 03/12/22 10:30 03/12/22 10:42 03/12/22 11:00 Temperature Pulse Rate 74 70 Respiratory Rate 18 Blood Pressure 134/60 Pulse Oximetry 96 92 Oxygen Delivery Method Oxygen Flow Rate 03/12/22 11:45 03/12/22 13:03 03/12/22 13:12 Temperature 98.1 F 98.5 F Pulse Rate 68 72 75 Respiratory Rate 22 29 H 15 Blood Pressure 131/69 113/53 L 108/50 L Pulse Oximetry 97 95 91 Oxygen Delivery Method Nasal Cannula Nasal Cannula Nasal Cannula Oxygen Flow Rate 4 5 4 03/12/22 13:17 03/12/22 13:31 03/12/22 13:07 Temperature 98.2 F Pulse Rate 76 76 74 Respiratory Rate 18 18 30 H Blood Pressure 123/56 L 143/57 H 110/53 L Pulse Oximetry 91 94 94 Oxygen Delivery Method Nasal Cannula Nasal Cannula Nasal Cannula Oxygen Flow Rate 4 4 4 03/12/22 13:42 03/12/22 13:53 03/12/22 14:06 Temperature 98.1 F Pulse Rate 75 76 77 Respiratory Rate 16 21 Blood Pressure 141/73 H Pulse Oximetry 96 95 92 Oxygen Delivery Method Nasal Cannula Room Air Oxygen Flow Rate 4 4 03/12/22 14:26 03/12/22 14:26 03/12/22 14:30 Temperature Pulse Rate 73 73 Respiratory Rate Blood Pressure 107/53 L Pulse Oximetry 91 92 Oxygen Delivery Method Oxygen Flow Rate 03/12/22 15:00 03/12/22 15:30 03/12/22 16:00 Temperature Pulse Rate 74 75 73 Respiratory Rate Blood Pressure Pulse Oximetry 98 94 92 Oxygen Delivery Method Oxygen Flow Rate 03/12/22 16:24 03/12/22 16:26 03/12/22 16:26 Temperature Pulse Rate 73 74 Respiratory Rate Blood Pressure 107/46 L Pulse Oximetry 94 93 Oxygen Delivery Method Oxygen Flow Rate Oxygen Delivery Method Room Air Oxygen Flow Rate 4 Narrative Exam Narrative: General:? Patient is well developed and well nourished, in no distress at this time. HEENT:? Normocephalic, atraumatic, extraocular muscles intact, oral pharynx is clear and mucous membranes are moist. Neck: supple and symmetric, trachea is midline, no cervical adenopathy. Negative for JVD Chest:? Normal AP diameter and contour without kyphoscoliosis, no tachypnea, equal chest rise bilaterally. Lungs:? CTA b/l no wheezing rhonchi or rales. Cardio:?RRR no m/r/g. Abdomen: S NT ND. No CVA tenderness. Musculoskeletal:? Muscle strength and tone are equal within normal limits, no deformity. Extremities: No edema or joint effusions. No cyanosis or clubbing. R hand dressing in place. Bilateral UE AV fistulae, L not functional and not used on the R. Central catheter currently in use for HD. Skin:? Pale,? Warm to touch,dry. Neuro:? Alert and orientated x3,? sensation to touch intact in all extremities, no gross deficits noted of cranial nerves. Psych:? Patient has a well-kept appearance, appropriate affect, mental status a ttitude thought context and judgment are appropriate for age. Objective Labs Result Diagrams: 03/12/22 08:44 03/12/22 08:44 Labs: Laboratory Results - last 24 hr 03/12/22 03/12/22 03/12/22 04:55 08:44 08:44 WBC 6.5 RBC 2.54 L Hgb 8.1 L Hct 24.3 L MCV 95.5 MCH 32.0 MCHC 33.5 RDW 16.3 H Plt Count 152 Neut % (Auto) 82.0 H Lymph % (Auto) 5.7 L [place] % (Auto) 6.2 Eos % (Auto) 5.5 H Baso % (Auto) 0.6 Neut # (Auto) 5300 Lymph # (Auto) 400 L [place] # (Auto) 400 Eos # (Auto) 400 Baso # (Auto) 0 Sodium 138 Potassium 4.6 Chloride 98 Carbon Dioxide 27 BUN 64 H Creatinine 7.34 H Estimated GFR 7 L BUN/Creatinine Ratio 8.7 Glucose 166 H Calcium 8.5 Total Bilirubin 0.5 AST 23 ALT 19 Alkaline Phosphatase 72 Total Protein 6.4 Albumin 3.5 Globulin 2.9 Albumin/Globulin Ratio 1.2 Procalcitonin 0.90 H Random Vancomycin 11.0 [facility] Medical History (Updated 03/12/22 @ 16:56 by Gustavo Martinez DO) AVF (arteriovenous fistula) Chronic kidney disease with end stage renal failure on dialysis Diabetes 1.5, managed as type 2 Family History Mother No pertinent past medical history Father No pertinent past medical history Social History household members: other Tobacco & Substance Use Smoking Status: Former smoker alcohol intake: former substance use type: does not use Assessment & Plan Assessment & Plan narrative: 1. Chronic respiratory failure with hypoxia - likely secondary to chronic volume overload in setting of ESRD. No patient history consistent with pneumonia. - patient is on baseline levels of supplemental oxygen, respiratory distress would need to be treated with hemodialysis. - patient's ceftriaxone would more than likely be adequate for pneumonia coverage, though it does miss atypicals but would not add additional coverage at this time. 2. Type 2 diabetes not on medication - Glucose levels appear controlled 3. ESRD on HD - patient received half length dialysis session on 03/11. He is currently asymptomatic. He continues to require transfer to facility with dialysis cap ability which has been extensively searched for by ER. 4. Right small finger MSSA infection with a necrotic distal tip and and open distal phalanx fracture, flexor tenosynovitis right 5th finge - management per orthopedic surgery, still awaiting possible transfer. - continues on ceftriaxone. Given dose of vancomycin. No need for MRSA coverage at this time. 5. Chronic anemia unknown baseline, recommend outpatient follow up with director export. Code: Full, surrogate decision maker he states is his cousin I have utilized all available immediate resources to obtain, update, or review the patient's current medications. Medicine service will be available for additional questions as needed, but management at this time appears sufficient and there are no additional recommendations at this time. Will sign off. Time Spent With Patient Critical Care time: I spent a total of [] minutes of critical care time on this patient's care today; this time is exclusive of procedural time.
[2022-03-12] MEDS: FUROSEMIDE 40 MG TABLET 160 MG PO (20:14)
[2022-03-13] VITALS (9 sets, daily range): BP systolic 101–182; BP diastolic 45–90; PULSE 72–80; RESP 16; TEMP 36.5; O2SAT 94–99
[2022-03-13] MEDS: TIMOLOL 0.5% OPHTH 1 DROPS EYE-BOTH (09:20)
[2022-03-13] MEDS: DORZOLAMIDE 2% OPHTH 10 ML 1 DROPS EYE-BOTH (09:20)
[2022-03-13] MEDS: LOSARTAN 50 MG TABLET 100 MG PO (09:21)
[2022-03-13] MEDS: TAMSULOSIN 0.4 MG CAPSULE PO (09:21)
[2022-03-13] MEDS: PANTOPRAZOLE DR 40 MG TABLET PO (09:21)
[2022-03-13] MEDS: cefTRIAXone 2,000 MG in SODIUM CHLORIDE 0.9% 100 ML 200 MG IV (09:21)
[2022-03-13] MEDS: FINASTERIDE 5 MG TABLET PO (09:22)
[2022-03-13 10:59] LABS: Add Manual Diff / Slide Review NO; Basophils Absolute Auto 0 /uL (0-100); Basophils Percent Auto 0.4 % (0-2); Eosinophils Absolute Auto 900 /uL (0-450); Eosinophils Percent Auto 11.2 % (2-4); Hematocrit 25.5 % (41-53); Hemoglobin 8.4 g/dL (13.5-17.5); Lymphocytes Absolute Auto 400 /uL (1100-4500); Lymphocytes Percent Auto 5.5 % (25-40); Mean Corpuscular Volume 97.1 fL (80-100); Monocytes Absolute Auto 300 /uL (0-900); Neutrophils Absolute Auto 6200 /uL (1500-7000); Neutrophils Percent Auto 78.9 % (50-75); Platelet Count 153 X10^3/uL (150-400); Red Blood Cell Count 2.63 X10^6/uL (4.5-5.9); Red Cell Distribution Width 16.9 % (11.6-14.8); White Blood Cell Count 7.9 X10^3/uL (4.5-11.0)
[2022-03-13 11:05] LABS: Alanine Aminotransferase 21 IU/L (<50); Albumin 3.6 g/dL (3.5-5.0); Albumin Globulin Ratio 1.2 (1.0-2.8); Alkaline Phosphatase 94 U/L (38-126); Aspartate Aminotransferase 27 IU/L (17-59); BUN Creatinine Ratio 8.5 (6-22); Bilirubin Total 0.4 mg/dL (0.2-1.3); Blood Urea Nitrogen 71 mg/dL (9-20); Calcium 8.3 mg/dL (8.4-10.2); Carbon Dioxide 21 mmol/L (22-32); Chloride 101 mmol/L (98-107); Estimated Glomerular Filt Rate 6 mL/min (>60); Glucose 139 mg/dL (80-110); HEMOLYSIS < 15 (0-50); Potassium 4.5 mmol/L (3.4-5.1); Sodium 140 mmol/L (137-145); Total Protein 6.6 g/dL (6.3-8.2)
[2022-03-13 11:21] LABS: Procalcitonin 0.98 ng/mL (<0.5)
--- NOTE | 2022-03-13 11:23 | PM.PNPO.1 ---
Subjective Subjective Interval history: Stable overnight in the emergency room. Adequate pain control. Exam Vital Signs (past 8 hours): - 03/13/22 03:50 03/13/22 03:50 03/13/22 08:23 Temperature Pulse Rate 72 74 Blood Pressure 119/58 L Pulse Oximetry 99 Oxygen Delivery Method Room Air Oxygen Flow Rate 03/13/22 08:24 03/13/22 08:25 03/13/22 08:25 Temperature 97.7 F Pulse Rate 72 72 Blood Pressure 101/45 L Pulse Oximetry 94 94 Oxygen Delivery Method Oxygen Flow Rate 4 03/13/22 09:21 Temperature Pulse Rate 80 Blood Pressure 182/81 H Pulse Oximetry Oxygen Delivery Method Oxygen Flow Rate Oxygen Delivery Method Room Air Oxygen Flow Rate 4 Narrative Exam Narrative: Arousable, good range of motion into the index middle and ring finger, dressing intact, minimal tenderness along the right forearm, excellent range of motion into the index middle and ring finger, Objective Labs Result Diagrams: 03/13/22 10:38 03/13/22 10:38 Labs: Laboratory Results - last 24 hr 03/13/22 03/13/22 10:38 10:38 WBC 7.9 RBC 2.63 L Hgb 8.4 L Hct 25.5 L MCV 97.1 MCH 32.0 MCHC 33.0 RDW 16.9 H Plt Count 153 Neut % (Auto) 78.9 H Lymph % (Auto) 5.5 L [place] % (Auto) 4.0 Eos % (Auto) 11.2 H Baso % (Auto) 0.4 Neut # (Auto) 6200 Lymph # (Auto) 400 L [place] # (Auto) 300 Eos # (Auto) 900 H Baso # (Auto) 0 Sodium 140 Potassium 4.5 Chloride 101 Carbon Dioxide 21 L BUN 71 H Creatinine 8.34 H* Estimated GFR 6 L BUN/Creatinine Ratio 8.5 Glucose 139 H Calcium 8.3 L Total Bilirubin 0.4 AST 27 ALT 21 Alkaline Phosphatase 94 Total Protein 6.6 Albumin 3.6 Globulin 3.0 Albumin/Globulin Ratio 1.2 Procalcitonin 0.98 H [facility] Medical History (Updated 03/12/22 @ 16:56 by Gustavo Martinez DO) AVF (arteriovenous fistula) Chronic kidney disease with end stage renal failure on dialysis Diabetes 1.5, managed as type 2 Family History Mother No pertinent past medical history Father No pertinent past medical history Social History household members: other Smoking Status: Former smoker alcohol intake: former substance use type: does not use Assessment & Plan Post-op Postoperative Procedures: Procedures Operation Date: 03/09/22 19:45 Actual Procedure Side Surgeon p Incision and Debridement of right fifth finger flexor tendon sheath, right small finger dorsum volar, right palm index and middle finger Right Kristina Harris MD Operation Date: 03/12/22 12:00 Actual Procedure Side Surgeon p Partial Amputation of right small finger and irrigation and debridement Right Kristina Harris MD Postoperative day: 1 Postoperative status narrative: Stable postoperatively. He needs continued IV antibiotics. He needs dialysis. Postoperative plan narrative: Continue IV antibiotics. Arrange for dialysis. Dressing change and wound check tomorrow.
[2022-03-13] MEDS: FUROSEMIDE 40 MG TABLET 160 MG PO (22:00)
[2022-03-14] VITALS (9 sets, daily range): BP systolic 140–169; BP diastolic 59–76; PULSE 71–83; RESP 18–20; TEMP 36.6–36.8; O2SAT 92–97
--- NOTE | 2022-03-14 02:00 | PC.NURSE ---
pt resting quietly eyes closed resp even and unlabored
--- NOTE | 2022-03-14 04:00 | PC.NURSE ---
no change in condition
--- NOTE | 2022-03-14 06:00 | PC.NURSE ---
pt continues without any change
--- NOTE | 2022-03-14 06:17 | PC.NURSE ---
[id number] Several calls to [facility] [phone] To Schedule dialyses appt, No answer left VM
--- NOTE | 2022-03-14 07:55 | PC.NURSE ---
multiple attempts to call [facility] to set up dialysis appointment for patient. message left.
--- NOTE | 2022-03-14 08:01 | PC.NURSE ---
pt sitting up in chair eating breakfast. pulse ox on finger and oxygen by nc weaned to 2LPM.
--- NOTE | 2022-03-14 08:03 | DI.RAD.S_ITS ---
PROCEDURE: XR CHEST 1V INDICATIONS: hypoxia TECHNIQUE: One view of the chest was acquired. COMPARISON: [facility], CT, CT ANGIO CHEST PE PROTOCOL, 03/11/2022, 10:28. [facility], CR, XR CHEST 1V, 03/10/2022, 8:46. FINDINGS: Surgical changes and devices: Right-sided central venous catheter is again seen with tip projecting over the superior vena cava. Lungs and pleura: Left mid lung zone opacity mildly abnormal contour of the left hemidiaphragm do not appear significantly changed when compared to the exam from 03/10/2022. There is mildly decreased bilateral interstitial prominence. Mediastinum: Mediastinal contours appear normal. Heart size is stable and mildly enlarged. Bones and chest wall: No suspicious bony lesions. Overlying soft tissues appear unremarkable. IMPRESSION: Left-sided pulmonary opacities are stable and there is mildly decreased bilaterally interstitial prominence. Findings again may represent stable to mildly improved pulmonary edema and/or multifocal pneumonia. Suspected small residual left pleural effusion. Mild cardiomegaly. Dictated by: Erik Dutton M.D. on 03/14/2022 at 8:48 Approved by: Erik Dutton M.D. on 03/14/2022 at 8:52
[2022-03-14] MEDS: DORZOLAMIDE 2% OPHTH 10 ML 1 DROPS EYE-BOTH (08:45)
[2022-03-14] MEDS: TIMOLOL 0.5% OPHTH 1 DROPS EYE-BOTH (08:45)
[2022-03-14] MEDS: LOSARTAN 50 MG TABLET 100 MG PO (08:46)
[2022-03-14] MEDS: TAMSULOSIN 0.4 MG CAPSULE PO (08:46)
[2022-03-14] MEDS: PANTOPRAZOLE DR 40 MG TABLET PO (08:46)
[2022-03-14] MEDS: FINASTERIDE 5 MG TABLET PO (08:46)
[2022-03-14] MEDS: cefTRIAXone 2,000 MG in SODIUM CHLORIDE 0.9% 100 ML 200 MG IV (09:00)
--- NOTE | 2022-03-14 10:04 | PC.NURSE ---
[id number] [facility] dialysis front maker reached [phone] attempting to get dialysis appt set up for today or find out if not today if tomorrow possible. [facility] staff to call back
[2022-03-14 10:39] LABS: Add Manual Diff / Slide Review NO; Basophils Absolute Auto 100 /uL (0-100); Basophils Percent Auto 0.9 % (0-2); Eosinophils Absolute Auto 1200 /uL (0-450); Eosinophils Percent Auto 10.6 % (2-4); Hematocrit 23.9 % (41-53); Hemoglobin 7.9 g/dL (13.5-17.5); Lymphocytes Absolute Auto 400 /uL (1100-4500); Lymphocytes Percent Auto 3.3 % (25-40); Mean Corpuscular Hemoglobin 31.7 PG (26-34); Monocytes Absolute Auto 400 /uL (0-900); Neutrophils Absolute Auto 9000 /uL (1500-7000); Neutrophils Percent Auto 81.2 % (50-75); Platelet Count 165 X10^3/uL (150-400); Red Blood Cell Count 2.49 X10^6/uL (4.5-5.9); Red Cell Distribution Width 16.4 % (11.6-14.8)
[2022-03-14 10:50] LABS: Alanine Aminotransferase 23 IU/L (<50); Albumin 3.5 g/dL (3.5-5.0); Albumin Globulin Ratio 1.2 (1.0-2.8); Alkaline Phosphatase 106 U/L (38-126); Aspartate Aminotransferase 24 IU/L (17-59); BUN Creatinine Ratio 9.2 (6-22); Bilirubin Total 0.4 mg/dL (0.2-1.3); Blood Urea Nitrogen 79 mg/dL (9-20); Calcium 8.2 mg/dL (8.4-10.2); Carbon Dioxide 20 mmol/L (22-32); Chloride 101 mmol/L (98-107); Estimated Glomerular Filt Rate 6 mL/min (>60); Glucose 208 mg/dL (80-110); HEMOLYSIS < 15 (0-50); Potassium 4.8 mmol/L (3.4-5.1); Sodium 141 mmol/L (137-145); Total Protein 6.5 g/dL (6.3-8.2)
[2022-03-14 11:07] LABS: Procalcitonin 0.81 ng/mL (<0.5)
--- NOTE | 2022-03-14 11:11 | PC.NURSE ---
message left with [facility] [place] [phone] regarding restting up dialysis schedule
--- NOTE | 2022-03-14 11:30 | PC.NURSE ---
pt to resume normal //sat am HD schedule tomorrow at [facility] with ABX iv dosing with dialysis. orders for meds to be faxed to [facility] and [facility] office.
--- NOTE | 2022-03-14 12:47 | CM.DPNOTE ---
DCP: Met with patient in his room. He is alert and oriented, and confirmed that he resides at [facility] in [place]. He no longer drives, they take him to his dialysis appointments in [place] three times a week. Discussed options of home health for his right hand, and he is open to home health. He also has no preferences upon agencies, would be ok with [facility], they have had earlier availabilities than [facility]. Brought a signed face to face from Dr. Harris, and Dr. Pineda will have ortho right instructions on dressing changes. Patient stated, he does have someone at [facility] named Joaquin, that can pick him up. They also have a facility nurse named Lucita, who may also be able to assist with dressing changes. P: Patient should be going back to [facility] today, he was going to have respiratory see him first, and Dr. Pineda was going to place an order to infectious disease MD. He was given a [facility] brochure, and face to face and orders will need to be faxed to [facility], and Deja at [facility] should be updated. Left this information with NBA Conte. Mayelin Chappell, [facility]
--- NOTE | 2022-03-14 13:17 | P.PN_ITS ---
Subjective Subjective Date Patient Seen: 03/14/22 Time Patient Seen: 13:17 Interval history: Lying in bed, asking about a sacral xray he had done as an outpatient, which I told him could be addressed with the ordering physician. Otherwise feeling well. Exam Vital Signs (past 8 hours): - 03/14/22 06:34 03/14/22 08:02 03/14/22 09:31 Temperature 98 F Pulse Rate 73 Respiratory Rate Blood Pressure 140/60 Blood Pressure [Left Wrist] Pulse Oximetry 92 94 Oxygen Delivery Method Nasal Cannula Nasal Cannula Oxygen Flow Rate 2 03/14/22 10:30 03/14/22 06:50 03/14/22 09:56 Temperature 98.3 F Pulse Rate 72 Respiratory Rate 20 Blood Pressure 168/59 H Blood Pressure [Left Wrist] 145/63 H Pulse Oximetry 97 96 Oxygen Delivery Method Nasal Cannula Nasal Cannula Oxygen Flow Rate 2 2 03/14/22 09:57 03/14/22 09:57 03/14/22 13:08 Temperature Pulse Rate 72 83 Respiratory Rate 18 Blood Pressure 145/63 H 169/76 H Blood Pressure [Left Wrist] Pulse Oximetry 96 93 Oxygen Delivery Method Nasal Cannula Nasal Cannula Oxygen Flow Rate 2 2 Oxygen Delivery Method Nasal Cannula Oxygen Flow Rate 2 Narrative Exam Narrative: Dressing removed. 5th finger with some purulent drainage, but overall appears to be well-perfused, no necrotic tissue apparent. Objective Labs Result Diagrams: 03/14/22 10:22 03/14/22 10:22 Labs: Laboratory Results - last 24 hr 03/14/22 03/14/22 10:22 10:22 WBC 11.0 RBC 2.49 L Hgb 7.9 L Hct 23.9 L MCV 96.0 MCH 31.7 MCHC 33.0 RDW 16.4 H Plt Count 165 Neut % (Auto) 81.2 H Lymph % (Auto) 3.3 L [place] % (Auto) 4.0 Eos % (Auto) 10.6 H Baso % (Auto) 0.9 Neut # (Auto) 9000 H Lymph # (Auto) 400 L [place] # (Auto) 400 Eos # (Auto) 1200 H Baso # (Auto) 100 Sodium 141 Potassium 4.8 Chloride 101 Carbon Dioxide 20 L BUN 79 H Creatinine 8.61 H* Estimated GFR 6 L BUN/Creatinine Ratio 9.2 Glucose 208 H Calcium 8.2 L Total Bilirubin 0.4 AST 24 ALT 23 Alkaline Phosphatase 106 Total Protein 6.5 Albumin 3.5 Globulin 3.0 Albumin/Globulin Ratio 1.2 Procalcitonin 0.81 H [facility] Medical History (Updated 03/14/22 @ 13:20 by Violeta García PA-C) AVF (arteriovenous fistula) 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 Per ED physician, plan is to send pt home today. Pt will need daily dressing changes; home health has been ordered. ID at [facility] has been consulted re antibiotics for homegoing. Pt to f/u w/ Dr Harris in office on 03/16/2022. Postoperative Procedures: Procedures Operation Date: 03/09/22 19:45 Actual Procedure Side Surgeon p Incision and Debridement of right fifth finger flexor tendon sheath, right small finger dorsum volar, right palm index and middle finger Right Kristina Harris MD Operation Date: 03/12/22 12:00 Actual Procedure Side Surgeon p Partial Amputation of right small finger and irrigation and debridement Right Kristina Harris MD Postoperative day: 2
[2022-03-14 13:26] LABS: Vancomycin Random 22.2 ug/mL (10-40)
--- NOTE | 2022-03-14 13:43 | CM.SWNOTE ---
DCP Note MOTORCYCLE FABRICATOR calls Deja at [facility] and faxes, F2F, clinicals, order for HH for referral for RN HH services. Deja states that services should start fairly soon, patient will be called to initiate referral. Patient to d/c when medically clear with [facility] f/u and f/u with outpatient providers. GILBERTO PardoSW
== END 2022-03-14 15:54 | disposition home or self-care (01) ==
LOC: ED 03-14 14:13 → OR 04-25 11:20
PROVIDERS: Emergency Medicine; Nurse Practitioner Critical Care Medicine; Emergency Provider Emergency Medicine; Family Provider Family Medicine; PCP Family Medicine; Visit Provider Orthopaedic Surgery
PROC: (CPT 26020; principal; 2022-03-09 19:45)
DX: S62.636A Displaced fracture of distal phalanx of right little finger, initial encounter for closed fracture (principal); I96 Gangrene, not elsewhere classified; B95.61 Methicillin susceptible Staphylococcus aureus infection as the cause of diseases classified elsewhere; E11.52 Type 2 diabetes mellitus with diabetic peripheral angiopathy with gangrene; E11.622 Type 2 diabetes mellitus with other skin ulcer; N18.6 End stage renal disease; Z99.2 Dependence on renal dialysis; D63.1 Anemia in chronic kidney disease; D69.6 Thrombocytopenia, unspecified; M65.831 Other synovitis and tenosynovitis, right forearm; J96.91 Respiratory failure, unspecified with hypoxia; L03.011 Cellulitis of right finger; W18.30XA Fall on same level, unspecified, initial encounter; I99.8 Other disorder of circulatory system; Z20.822 Contact with and (suspected) exposure to COVID-19; Z23 Encounter for immunization
CPT/HCPCS: 26020; 11042; 26951; 00400; 11043; 26236; 36415; 36600; 71045; 71275; 72220; 73090; 73120; 80053; 80202; 82805; 82962; 83605; 84145; 85025; 85651; 86140; 87040; 87070; 87075; 87077; 87147; 87186; 87205; 87635; 90471; 96365; 96366; 96367; 96375; 96376; 99140; 99285; C9803; 90715; J0360; J0696; J1940; J2250; J2704; J3010; Q9967

== ENCOUNTER 2022-03-24 14:38 | Day surgery (SDC) | payer MEDICARE, OTHER, SELFPAY ==
[2022-03-22 14:02] VITALS: BMI 29.0
[2022-03-24] VITALS (8 sets, daily range): BP systolic 132–157; BP diastolic 52–83; PULSE 71–77; RESP 16–28; TEMP 36.4–36.8; O2SAT 90–96; BMI 29.0
--- NOTE | 2022-03-24 14:50 | SUR.PREOP ---
[id number] arrived to hospital, no ride home.OR auditing specialist called to clarify RE: pt stated Dr Harris arranging ride home. auditing specialist clarifying with Dr Harris on transportation home. Pacu auditing specialist, Doreen Hayes RN aware.
[2022-03-24 15:22] LABS: COVID19 -Nasal RAPID Negative (Negative)
[2022-03-24] MEDS: LACTATED RINGERS 1,000 ML 42 ML IV (16:00)
--- NOTE | 2022-03-24 16:35 | PM.PREOP ---
Pre-operative Note COVID-19 COVID-19 status: Negative Interval Note History & Physical reviewed/Exam performed by Physician: Yes Changes to H&P: No
--- NOTE | 2022-03-24 16:36 | PM.OP.1 ---
Operative Date/Time/Diagnoses Date of procedure: 03/24/22 Time of procedure: 16:45 Pre-op diagnosis: Right 5th finger open amputation Post-op diagnosis: same Procedure & Clinicians Procedure: Right 5th finger irrigation and excisional debridement of small amount of necrotic skin and subcutaneous tissue with secondary closure Same procedure as scheduled: Yes Indications: This is a 72-year-old gentleman on dialysis who was admitted with a severe finger infection. He previously underwent an open amputation of his 5th finger. He has been getting his dialysis and on IV antibiotics. He is now returning to the operating room for irrigation and debridement and possible closure. He is brought the operating room for irrigation and debridement and closure. Surgeon: Kristina Harris Click Yes if Unassisted: Yes Anesthesia Type: General Operative Notes Findings: Small amount of necrotic tissue, adequate closure without excessive skin tension. Closure Type: primary Specimen(s): other (Deep culture) Estimated Blood Loss (mL): 50 Procedure in detail: Patient brought the operating room he underwent induction of a general anesthesia. His right upper extremities prepped draped in standard sterile fashion. A dense digital block was performed. Tourniquet was applied but not elevated. Time-out was performed. He got 2 g of IV Ancef. His right hand was meticulously irrigated with normal saline. The wound at the base of his index and middle finger appeared to be doing well. There was no palmar erythema. There was minimal swelling along the flexor tendon over the small finger PIP joint, moderate amount of necrotic tissue was debrided at the tip of his 5th finger and it was meticulously cleaned. The middle phalanx was slightly shortened in order to allow good quality coverage. The edge was meticulously freshened. There was bleeding along the edge. It was closed with interrupted nylon. It was dressed with Xeroform 4x4s and sterile dressing. Complications: none Post-operative Condition: stable Disposition: Acute Care Plan for aftercare: Keep dressing dry. Dressing change with home health nursing on Monday. Dry dressing was Xeroform and 4x4s or 2 by 2s. Leave stitches in for 14-21 days. Follow up in clinic in 14-21 days.
--- NOTE | 2022-03-24 17:00 | SUR.OPER ---
Supine on padded OR bed, head on pillow, arms secured on padded arm boards at <90 degrees abduction, legs uncrossed, safety belt at thigh, tape over blanket over lower legs.
[2022-03-24] MEDS: BUPIVACAINE 0.5% (PF) VIAL 30 ML INJ (17:04)
[2022-03-24] MEDS: CEFAZOLIN 2 GM/20 ML SYRINGE IV (17:06)
== END 2022-03-24 18:40 | disposition home or self-care (01) ==
PROVIDERS: Family Provider Family Medicine; PCP Family Medicine; Referring Provider Orthopaedic Surgery; Visit Provider Orthopaedic Surgery
PROC: (CPT 13160; principal; 2022-03-24 16:45)
DX: I96 Gangrene, not elsewhere classified (principal); T87.41 Infection of amputation stump, right upper extremity; T81.41XA Infection following a procedure, superficial incisional surgical site, initial encounter; Z89.021 Acquired absence of right finger(s); I12.0 Hypertensive chronic kidney disease with stage 5 chronic kidney disease or end stage renal disease; N18.6 End stage renal disease; Z99.2 Dependence on renal dialysis; Z99.81 Dependence on supplemental oxygen; Z20.822 Contact with and (suspected) exposure to COVID-19; S68.116A Complete traumatic metacarpophalangeal amputation of right little finger, initial encounter
CPT/HCPCS: 13160; 82962; 87070; 87075; 87077; 87147; 87186; 87205; 87635; C9803; J0690; J2704; J3010